=== PATIENT | male | born 1950 | race Caucasian/White ===

== ENCOUNTER → 2019-03-06 | Outpatient (CLI) | payer MEDICARE, OTHER ==
--- NOTE | 2019-03-08 13:37 | P.ARTDOP ---
Arterial Doppler LOWER EXTREMITY ARTERIAL DOPPLER: DATE OF SERVICE: 03/06/2019 Reason for study: Claudication. Doppler waveforms: Multiphasic bilaterally throughout. Pulse volume recording: []. Pressure gradients: Below the knee on the left and above the knee on the right as well as below the knee. Ankle-brachial indices: 0.54 on the right and 0.87 on the left. Toe pressures: [] on the right, [] on the left Impression: Mild left and moderate right fem-pop disease..
== END | disposition home or self-care (01) ==
LOC: RADUSWWP 11:59
PROVIDERS: ATTEND Pediatrics
DX: I73.9 Peripheral vascular disease, unspecified (principal)
CPT/HCPCS: 93923

== ENCOUNTER → 2019-05-02 | Outpatient (CLI) | payer MEDICARE, OTHER ==
[2019-05-02 16:38] LABS: Basophils % (A) 0 %; Eosinophils # (A) 0.1 k/uL (0-0.7); Eosinophils % (A) 1 %; HCT 32.1 % (39.0-53.0); Lymphocytes # (A) 1.7 k/uL (1.0-4.8); Lymphocytes % (A) 19 %; MCH 31.4 pg (25.0-35.0); MCHC 34.4 g/dL (31.0-37.0); MCV 91.4 fL (80.0-100.0); Mean Platelet Volume 6.7; Monocytes # (A) 0.7 k/uL (0-1.0); Monocytes % (A) 7 %; Neutrophils # (A) 6.5 k/uL (1.3-7.7); Neutrophils % (A) 70 %; Platelet Count 462 k/uL (150-450); RBC 3.51 m/uL (4.30-5.90); RDW 12.9 % (11.5-15.5); WBC 9.2 k/uL (3.8-10.6)
[2019-05-02 16:46] LABS: Potassium 4.9 mmol/L (3.5-5.1)
== END | disposition home or self-care (01) ==
LOC: LABWHC1 15:23
PROVIDERS: ATTEND Surgery
DX: Z01.812 Encounter for preprocedural laboratory examination (principal); I73.9 Peripheral vascular disease, unspecified
CPT/HCPCS: 36415; 80051; 82565; 84520; 85025

== ENCOUNTER 2019-05-16 06:13 | Day surgery (SDC) | payer MEDICARE, OTHER ==
[2019-05-11 10:04] VITALS: BMI 17.7
[~2019-05-16 06:13] MED LIST: ALPRAZolam 0.25 MG TAB PO PRN; ASPIRIN 325 MG TAB PO STA; SODIUM CHLORIDE 0.9% 1,000 ML in EMPTY BAG 1 BAG IV ONE
[2019-05-16] MEDS ORDERED: MIDAZOLAM PF (FBP) 2 MG/2 ML VIAL IVP ONE (07:30)
[2019-05-16] MEDS ORDERED: fentaNYL (PF) 50 MCG/ML 2 ML AMP IV ONE (07:30)
[2019-05-16] MEDS ORDERED: LIDOCAINE 1% INJ 10MG/ML (20 ML MDV) SQ ONE (07:32)
[2019-05-16] MEDS ORDERED: IOPAMIDOL-250 100ML BTL INTRAARTER ONE (07:43)
--- NOTE | 2019-05-16 08:00 | P.OP ---
Date of Procedure: 05/16/19 Indications for Procedure: 68-year-old gentleman who presents to the hospital for elective aortogram with runoff. Patient has had difficulty with ambulation and complaining of pain in his right calf with approximately half a block of walking. He also states he has to walk up stairs to get to his house which she states is extremely difficult and painful. He does admit to continued tobacco use but is down to 14 cigarettes per day. He underwent arterial Doppler which demonstrated ABIs of 0.40 on the right and 0.98 on the left. 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 Left superficial femoral artery stenosis approximately 90%. Procedure: Aortogram with bilateral lower extremity runoffs via left common femoral artery access under ultrasound guidance Surgeon: Juan Anesthesia: Moderate sedation times 14 minutes Estimated blood loss: Less than 5 mL Complications: None Condition: Stable Findings: Aorta: Patent without any significant stenosis or atherosclerotic disease. Renal arteries are patent bilaterally. Iliacs: Mild atherosclerotic disease noted within the iliac arteries bilaterally with mild approximately 10% stenosis of the left common iliac artery. Femorals: Bilateral common femoral arteries are patent. Profundus femoris arteries are patent bilaterally. Superficial femoral artery on the right is patent at the orifice but is occluded just after takeoff with reconstitution above-knee popliteal artery just after Addison's canal. The left superficial femoral artery is patent with atherosclerotic disease throughout and 90% stenosis at the midportion. Popliteal: Patent with mild atherosclerotic disease Tibials: Three-vessel runoff bilaterally with anterior tibial and posterior tibial artery to the ankle on the left posterior tibial artery to the ankle on the right with diminished contrast noted to the ankle from the anterior tibial artery. Operative narrative: After written informed consent was obtained the patient all risks benefits competitions were described the patient is brought to the Natural [employer] Shothole Driller and laid in a supine position. The area of the groin was prepped and draped in the usual sterile fashion. Local anesthesia with moderate sedation was performed with continuous pulse ox monitoring and EKG monitoring. Utilizing ultrasound the left common femoral artery was visualized and shown to be patent without any significant plaque. Utilizing a multipurpose needle under ultrasound guidance the artery was accessed. Guidewire was placed followed by 5-Danish sheath. 035 Glidewire was then placed into the aorta followed by pigtail catheter. Angiogram was then obtained of the aorta. Catheter was then placed at the bifurcation and lower extremity runoffs were obtained. Once completed all guidewires, catheters and sheaths were removed and pressure was placed for hemostasis. Patient tolerated procedure well was sent to PACU for recovery Plan - Discharge Summary Discharge Rx Participant: No New Discharge Prescriptions: No Action Fluticasone Nasal [place] [Flonase Nasal [place]] 2 spr EA NOSTRIL DAILY Lisinopril [Zestril] 5 mg PO DAILY Lansoprazole [Prevacid] 30 mg PO DAILY Aspirin 81 mg PO DAILY Discharge Medication List Fluticasone Nasal [place] [Flonase Nasal [place]] 2 spr EA NOSTRIL DAILY 07/23/16 [History] Lansoprazole [Prevacid] 30 mg PO DAILY 05/11/19 [History] Lisinopril [Zestril] 5 mg PO DAILY 05/11/19 [History] Aspirin 81 mg PO DAILY 05/16/19 [History] Follow up Appointment(s)/Referral(s): Osmani Martinez DO [STAFF PHYSICIAN] - 1 Week Discharge Disposition: HOME SELF-CARE
--- NOTE | 2019-05-16 08:50 | IR ---
EXAMINATION TYPE: IR angio abdominal w runoff DATE OF EXAM: 05/16/2019 COMPARISON: NONE HISTORY: Fluoroscopy time. Fluoroscopy was provided to the referring clinician.
[2019-05-16 10:18] VITALS: RESP 20
[2019-05-16 13:23] VITALS: BP 127/65; PULSE 70
== END 2019-05-16 13:00 | disposition home or self-care (01) ==
LOC: CATHCVL 06:13
PROVIDERS: ATTEND Surgery
DX: I70.213 Atherosclerosis of native arteries of extremities with intermittent claudication, bilateral legs (principal); I70.92 Chronic total occlusion of artery of the extremities; F17.210 Nicotine dependence, cigarettes, uncomplicated; K40.20 Bilateral inguinal hernia, without obstruction or gangrene, not specified as recurrent; K85.90 Acute pancreatitis without necrosis or infection, unspecified; Z79.82 Long term (current) use of aspirin; Z79.899 Other long term (current) drug therapy
CPT/HCPCS: 36200; 75625; 75716; 76937; C1769 ×3; C1894; J2001; J3010; Q9966; J2250

== ENCOUNTER → 2019-05-23 | Outpatient (CLI) | payer MEDICARE, OTHER ==
[2019-05-23 16:50] LABS: African American GFR (CKD) >90 (>60 ml/min/1.73 sqM); Anion Gap 9 mmol/L; Blood Urea Nitrogen 16 mg/dL (9-20); Carbon Dioxide 29 mmol/L (22-30); Chloride 96 mmol/L (98-107); Potassium 5.1 mmol/L (3.5-5.1); Sodium 134 mmol/L (137-145)
[2019-05-23 16:58] LABS: Basophils # (A) 0.1 k/uL (0-0.2); Basophils % (A) 1 %; Eosinophils # (A) 0.1 k/uL (0-0.7); Eosinophils % (A) 2 %; HCT 33.9 % (39.0-53.0); HGB 11.3 gm/dL (13.0-17.5); Lymphocytes # (A) 1.9 k/uL (1.0-4.8); Lymphocytes % (A) 21 %; MCH 31.1 pg (25.0-35.0); MCHC 33.3 g/dL (31.0-37.0); MCV 93.3 fL (80.0-100.0); Monocytes # (A) 0.7 k/uL (0-1.0); Monocytes % (A) 7 %; Neutrophils # (A) 6.1 k/uL (1.3-7.7); Neutrophils % (A) 68 %; Platelet Count 498 k/uL (150-450); RBC 3.63 m/uL (4.30-5.90); RDW 13.1 % (11.5-15.5); WBC 9.1 k/uL (3.8-10.6)
== END | disposition home or self-care (01) ==
LOC: LABPAT 15:52
PROVIDERS: ATTEND Surgery
DX: Z01.812 Encounter for preprocedural laboratory examination (principal); I70.211 Atherosclerosis of native arteries of extremities with intermittent claudication, right leg
CPT/HCPCS: 36415; 80051; 82565; 84520; 85025

== ENCOUNTER 2019-06-02 05:42 | Day surgery (SDC) | payer MEDICARE, OTHER ==
[2019-05-31 14:45] VITALS: BMI 17.7
[2019-06-02] MEDS ORDERED: ALPRAZolam 0.25 MG TAB PO PRN (05:58)
[2019-06-02] MEDS ORDERED: SODIUM CHLORIDE 0.9% 1,000 ML in EMPTY BAG 1 BAG IV ONE (05:58)
[2019-06-02] MEDS ORDERED: ASPIRIN 325 MG TAB PO STA (05:58)
[2019-06-02 06:43] VITALS: PULSE 80; RESP 20; TEMP 98
[2019-06-02] MEDS ORDERED: IV FLUID CONTINUATION 950 ML IV ONE (07:14)
[2019-06-02] MEDS: MIDAZOLAM PF (FBP) 2 MG/2 ML VIAL IV ONE ×2 (07:25→07:34)
[2019-06-02] MEDS: fentaNYL (PF) 50 MCG/ML 2 ML AMP IV ONE ×2 (07:26→08:02)
[2019-06-02] MEDS ORDERED: LIDOCAINE 1% INJ 10MG/ML (20 ML MDV) SQ ONE (07:27)
[2019-06-02] MEDS ORDERED: HEPARIN SODIUM 1,000 UN/ML (10ML VL) IV ONE (07:37)
[2019-06-02] MEDS ORDERED: CLOPIDOGREL 75 MG TAB PO ONE (08:35)
[2019-06-02] MEDS ORDERED: PROTAMINE SULFATE 10 MG/ML 5 ML VIAL IV ONE (08:36)
[2019-06-02] MEDS ORDERED: IOPAMIDOL-250 100ML BTL INTRAARTER ONE (08:43)
--- NOTE | 2019-06-02 08:57 | P.OP ---
Date of Procedure: 06/02/19 Description of Procedure: Preoperative diagnosis: Disabling claudication Lawrence classification 3 with right superficial femoral artery chronic total occlusion Postoperative diagnosis: Same Procedure: 1. Right lower extremity percutaneous directional atherectomy with Hawk One device of the superficial femoral artery. 2. Right lower extremity percutaneous balloon angioplasty with drug eluding balloon of the superficial femoral artery. 3. Right lower extremity percutaneous stent placement of the superficial femoral artery 4. Right lower extremity selective femoral, popliteal and distal tibial artery angiogram 5. Left common femoral artery ultrasound guided access. 6. Moderate sedation x 66 minutes. Surgeon: Juan Estimated blood loss: 5 mL Complications: None Condition: Stable Disposition: Palpable PT pulse at the conclusion of the procedure. Indications: 68-year-old gentleman who presented originally to the office secondary to right lower extremity disabling claudication. Patient states she can only walk approximately 50-60 feet without significant pain in his calf and thigh. He underwent ABIs which demonstrated 0.4 on the right and underwent aortogram with runoff which demonstrated right superficial femoral artery chronic total occlusion with recollateralization at the above-knee popliteal. On exam he had nonpalpable DP or PT pulses. He presents today for atherectomy and possible stenting. Operative narrative: After written informed consent was obtained the patient all risks benefits competitions were described the patient is brought to the Technical Communication Teacher and laid in a supine position. The area of the groins were prepped and draped in usual sterile fashion. Timeout was performed in normal fashion. Utilizing ultrasound the left common femoral artery was visualized and shown to be patent with no thrombus and minimal calcification area utilizing Seldinger technique a 6-Thai sheath was placed after access was obtained under ultrasound guidance. Heparin was administered and ACTs obtained. 0.35 Glid ewire followed by a RBI catheter was placed into the aortic bifurcation and the right common iliac artery was accessed in an up and over fashion. Once in the superficial femoral artery we RBI catheter was placed into the SFA and the wire was exchanged with a 035 Glidewire advantage. A 7-Thai Raabe sheath was then placed after removal of the 6-Thai short sheath. Selective angiogram was then obtained of the right lower extremity demonstrating chronic total occlusion of the SFA with reconstitution of the above-knee popliteal artery. Utilizing a 035 Glidewire advantage and a quick cross catheter the lesion was crossed. Once across the lesion selective angiogram distal to the blockage was obtained demonstrating good intraluminal access. A 5-Thai spider wire and filter was placed and atherectomy was performed across the lesion with a Hawk one LX device for 3 passes. Angiogram was then obtained demonstrating intraluminal gain but there was an area of dissection flap that was noted. A balloon angioplasty was then performed with 6 x 200 mm impact Admiral drug-eluting balloon 4 minutes. Repeat angiogram was obtained demonstrating still an area of dissection with flow limitation therefore a 6 x 120 mm ever Flex stent was placed across the lesion. This was followed by a 6 x 100 mm balloon angioplasty within the stent and final angiogram was obtained demonstrating brisk flow through the stent. No evidence of turbulence was noted with flow down to the ankle. All guidewires and catheters were then removed ACTs were obtained and sheath was removed and pressure was held for hemostasis. Patient tolerated the procedure well and was sent to PACU for recovery. Plan - Discharge Summary Discharge Rx Participant: No New Discharge Prescriptions: No Action Fluticasone Nasal [place] [Flonase Nasal [place]] 2 spr EA NOSTRIL DAILY Lisinopril [Zestril] 5 mg PO DAILY Aspirin 81 mg PO DAILY Discharge Medication List Fluticasone Nasal [place] [Flonase Nasal [place]] 2 spr EA NOSTRIL DAILY 07/23/16 [History] Lisinopril [Zestril] 5 mg PO DAILY 05/11/19 [History] Aspirin 81 mg PO DAILY 05/16/19 [History] Clopidogrel [Plavix] 75 mg PO DAILY 06/02/19 [History] Follow up Appointment(s)/Referral(s): Osmani Martinez DO [STAFF PHYSICIAN] - 2 Weeks Activity/Diet/Wound Care/Special Instructions: no lifting greater than 15 lbs x 1 week. ok to shower over incision in 24 hours. remove dressing in 24 hours. no driving x 24 hours. Discharge Disposition: HOME SELF-CARE
--- NOTE | 2019-06-02 10:46 | IR ---
Fluoroscopy HISTORY: Pain 14.3 minutes fluoroscopy time supplied to the referring clinician. 619 intraoperative C-arm images d ocument the procedure. See dictated report from vascular surgery.
[2019-06-02 17:58] VITALS: BP 129/72
== END 2019-06-02 17:00 | disposition home or self-care (01) ==
LOC: CATHCVL 05:42
PROVIDERS: ATTEND Surgery
DX: I70.213 Atherosclerosis of native arteries of extremities with intermittent claudication, bilateral legs (principal); I70.92 Chronic total occlusion of artery of the extremities; F17.200 Nicotine dependence, unspecified, uncomplicated; Z79.899 Other long term (current) drug therapy; Z98.890 Other specified postprocedural states; Z82.49 Family history of ischemic heart disease and other diseases of the circulatory system
CPT/HCPCS: 37227; 85347; C1894 ×2; C1769 ×4; C1887; C1725; C1714; C1884; C1876; C2623; J2720; J2001; J3010; J1644; Q9966; J2250

== ENCOUNTER 2019-07-19 15:28 | Inpatient (IN) | payer MEDICARE, OTHER ==
[2019-07-19] MEDS ORDERED: HEPARIN SODIUM,PORCINE 5,000 UNIT/ML 1 ML VIAL IV ONE (15:50)
[2019-07-19] MEDS ORDERED: HEPARIN SODIUM,PORCINE 5,000 UNIT/ML 1 ML VIAL IV PRN (15:50)
[2019-07-19 15:57] LABS: Basophils % (A) 0 %; Eosinophils # (A) 0.1 k/uL (0-0.7); Eosinophils % (A) 1 %; Hypochromasia Marked; Lymphocytes # (A) 1.3 k/uL (1.0-4.8); Lymphocytes % (A) 18 %; MCH 27.2 pg (25.0-35.0); MCHC 31.1 g/dL (31.0-37.0); Mean Platelet Volume 6.6; Monocytes # (A) 0.4 k/uL (0-1.0); Monocytes % (A) 6 %; Neutrophils # (A) 5.4 k/uL (1.3-7.7); Neutrophils % (A) 73 %; Platelet Count 503 k/uL (150-450); Poikilocytosis Slight; RBC 2.27 m/uL (4.30-5.90); RDW 15.3 % (11.5-15.5); WBC 7.4 k/uL (3.8-10.6)
[2019-07-19] MEDS ORDERED: NITROGLYCERIN 0.1MG/HR PATCH TRANSDERM ONE (15:57)
--- NOTE | 2019-07-19 15:59 | ED ---
General Adult HPI - General Chief complaint: Recheck/Abnormal Lab/Rx Stated complaint: CHEST PAIN Time Seen by Provider: 07/19/19 15:41 Source: EMS Mode of arrival: EMS Limitations: no limitations - History of Present Illness Initial comments: Dictation was produced using [employer] dictation software. please excuse any grammatical, word or spelling errors. Chief Complaint: 69-year-old male brought in by EMS for anemia and chest pain. History of Present Illness: 69-year-old male he has been having waxing and waning chest pain symptoms for the last year. Patient was seen his primary care physician's office and sent home. PCP allegedly called EMS and transfer patient to the emergency department. Patient was told that he had a critical low hemoglobin of 6.6. According to EMS EMS was concerned about his chest pain. States she's been having chest pain that started since 2 PM today. He was given nitroglycerin and aspirin by EMS. Patient states the pain is dull radiates to the right jaw. Complains of some mild nausea and no diaphoresis. She does complain of some mild exertional shortness of breath. Patient denies any worsening of symptoms with deep inspiration. Said he had GI bleed approximately 2 months ago. The ROS documented in this emergency department record has been reviewed and confirmed by me. Those systems with pertinent positive or negative responses have been documented in the HPI. All other systems are other negative and/or noncontributory. PHYSICAL EXAM: General Impression: Alert and oriented x3, not in acute distress HEENT: Normocephalic atraumatic, extra-ocular movements intact, pupils equal and reactive to light bilaterally, mucous membranes moist. Cardiovascular: Heart regular rate and rhythm, S1&S2 audible, no murmurs, rubs or gallops Chest: Lungs clear to auscultation bilaterally, no rhonchi, no wheeze, no rales Abdomen: Bowel sounds present, abdomen soft, non-tender, non-distended, no organomegaly Musculoskeletal: Pulses present and equal in all extremities, no peripheral edema Motor: no focal deficits noted Neurological: CN II-XII grossly intact, no focal motor or sensory deficits noted Skin: Intact with no visualized rashes Psych: Normal affect and mood ED course: 69-year-old male presents to the emergency department for anemia and chest pain. Vital signs pending. He was obtained showing diffuse ST depressions without any clear ST elevation. This is compared to EKG from 07/23/2016. There is significant concern for ischemia. Discussed patient case immediately with Dr. Shahid of cardiology who requested that code STEMI not be paged and that he will come and see the patient in approximately 10 minutes. All signs upon arrival shows heart rate of 124. She did report improvement of symptoms with nitroglycerin. Discussed patient case with Naty from Dr. Bass's office. She allegedly saw the patient earlier today [facility] labs for his annual visit. She reports that EMS was called for hemoglobin of 6.6. Patient has hemoglobin stable in the [address] does not show any discernible ST elevations to suggest ST segment elevation [place]. There is concern that patient's clinical presentation is concerning with cardiac ischemia from low hemoglobin.Dr. Shahid from cardiology evaluated patient at bedside and reviewed EKGs. Given patient's anemia no indication for seed analysis laboratory assistant at this time. He recommends transfusing patient. He requests order for iron studies and echocardiogram. Labs evaluation obtained. Hemoglobin 6.2. Metabolic panel is unremarkable. Point elevated at 0.036. D-dimer slightly elevated at 7.55. Bony care bedside ultrasound was performed to free fluid in the abdomen no pericardial effusion. Patient ordered for blood transfusion. Patient be admitted. Discussed Case with Dr. Hoyt will be willing to accept patients care. He requests that hematology consult it. EKG interpretation: Ventricular rate 120, sinus tachycardia, ME interval 150, QS 92, QTc 457. Concern for cardiac ischemia given diffuse ST depressions in the precordial leads. Repeat EKG was obtained showing no dynamic changes however shows persistent ST depression. - Related Data Home Medications Medication Instructions Recorded Confirmed Fluticasone Nasal [place] [Flonase 1 spr EA NOSTRIL DAILY 07/23/16 07/19/19 Nasal [place]] Lisinopril [Zestril] 5 mg PO DAILY 05/11/19 07/19/19 Aspirin 81 mg PO DAILY 05/16/19 07/19/19 Clopidogrel [Plavix] 75 mg PO DAILY 06/02/19 07/19/19 Atorvastatin Calcium [Lipitor] 40 mg PO DAILY 07/19/19 07/19/19 Allergies Allergy/AdvReac Type Severity Reaction Status Date / Time No Known Allergies Allergy Verified 07/19/19 16:45 Review of Systems ROS Statement: Those systems with pertinent positive or pertinent negative responses have been documented in the HPI. ROS Other: All systems not noted in ROS Statement are negative. Past Medical History Past Medical History: COPD, Hypertension Additional Past Medical History / Comment(s): extreme rufus leg pain with walking and resting,Hx sinus problems, Headaches, 2008 fell down 25 steps- broke nose and had a concussion, rt lazy eye,pancreatitis, History of Any Multi-Drug Resistant Organisms: None Reported Past Surgical History: Hernia Repair Additional Past Surgical History / Comment(s): Bilateral inguinal hernias, tooth extractions, stent in right leg Past Anesthesia/Blood Transfusion Reactions: Motion Sickness Additional Past Anesthesia/Blood Transfusion Reaction / Comment(s): no hx blood transfusion Past Psychological History: No Psychological Hx Reported Smoking Status: Current every day smoker Past Alcohol Use History: None Reported Past Drug Use History: None Reported - Past Family History Mother Family Medical History: Dementia Father Family Medical History: Congestive Heart Failure (CHF) General Exam Limitations: no limitations Course Vital Signs 07/19/19 07/19/19 07/19/19 15:35 15:43 15:50 Temperature 98.5 F Pulse Rate 124 H Pulse Rate [ 124 H Apical] Respiratory 16 Rate Blood Pressure 115/63 O2 Sat by Pulse 100 100 Oximetry 07/19/19 16:00 Temperature Pulse Rate 114 H Pulse Rate [ Apical] Respiratory 20 Rate Blood Pressure 115/63 O2 Sat by Pulse 100 Oximetry Medical Decision Making - Lab Data Result diagrams: 07/19/19 15:41 07/19/19 15:41 Lab Results 07/19/19 07/19/19 07/19/19 Range/Units 15:41 15:41 15:41 WBC 7.4 (3.8-10.6) k/uL RBC 2.27 L (4.30-5.90) m/uL Hgb 6.2 L* D (13.0-17.5) gm/dL Hct 19.8 L* (39.0-53.0) % MCV 87.3 D (80.0-100.0) fL MCH 27.2 (25.0-35.0) pg MCHC 31.1 (31.0-37.0) g/dL RDW 15.3 (11.5-15.5) % Plt Count 503 H (150-450) k/uL Neutrophils % 73 % Lymphocytes % 18 % Monocytes % 6 % Eosinophils % 1 % Basophils % 0 % Neutrophils # 5.4 (1.3-7.7) k/uL Lymphocytes # 1.3 (1.0-4.8) k/uL Monocytes # 0.4 (0-1.0) k/uL Eosinophils # 0.1 (0-0.7) k/uL Basophils # 0.0 (0-0.2) k/uL Hypochromasia Marked Poikilocytosis Slight PT 10.4 (9.0-12.0) sec INR 1.0 (<1.2) APTT 20.9 L (22.0-30.0) sec D-Dimer 0.55 (<0.60) mg/L FEU Sodium 138 (137-145) mmol/L Potassium 4.1 (3.5-5.1) mmol/L Chloride 102 (98-107) mmol/L Carbon Dioxide 26 (22-30) mmol/L Anion Gap 10 mmol/L BUN 22 H (9-20) mg/dL Creatinine 1.10 (0.66-1.25) mg/dL Est GFR (CKD-EPI)AfAm 80 (>60 ml/min/1.73 sqM) Est GFR (CKD-EPI)NonAf 69 (>60 ml/min/1.73 sqM) Glucose 91 (74-99) mg/dL Calcium 9.4 (8.4-10.2) mg/dL Magnesium 2.0 (1.6-2.3) mg/dL Total Bilirubin 0.1 L (0.2-1.3) mg/dL AST 21 (17-59) U/L ALT 14 L (21-72) U/L Alkaline Phosphatase 52 (38-126) U/L Troponin I (0.000-0.034) ng/mL Total Protein 7.0 (6.3-8.2) g/dL Albumin 4.1 (3.5-5.0) g/dL 07/19/19 Range/Units 15:41 WBC (3.8-10.6) k/uL RBC (4.30-5.90) m/uL Hgb (13.0-17.5) gm/dL Hct (39.0-53.0) % MCV (80.0-100.0) fL MCH (25.0-35.0) pg MCHC (31.0-37.0) g/dL RDW (11.5-15.5) % Plt Count (150-450) k/uL Neutrophils % % Lymphocytes % % Monocytes % % Eosinophils % % Basophils % % Neutrophils # (1.3-7.7) k/uL Lymphocytes # (1.0-4.8) k/uL Monocytes # (0-1.0) k/uL Eosinophils # (0-0.7) k/uL Basophils # (0-0.2) k/uL Hypochromasia Poikilocytosis PT (9.0-12.0) sec INR (<1.2) APTT (22.0-30.0) sec D-Dimer (<0.60) mg/L FEU Sodium (137-145) mmol/L Potassium (3.5-5.1) mmol/L Chloride (98-107) mmol/L Carbon Dioxide (22-30) mmol/L Anion Gap mmol/L BUN (9-20) mg/dL Creatinine (0.66-1.25) mg/dL Est GFR (CKD-EPI)AfAm (>60 ml/min/1.73 sqM) Est GFR (CKD-EPI)NonAf (>60 ml/min/1.73 sqM) Glucose (74-99) mg/dL Calcium (8.4-10.2) mg/dL Magnesium (1.6-2.3) mg/dL Total Bilirubin (0.2-1.3) mg/dL AST (17-59) U/L ALT (21-72) U/L Alkaline Phosphatase (38-126) U/L Troponin I 0.036 H* (0.000-0.034) ng/mL Total Protein (6.3-8.2) g/dL Albumin (3.5-5.0) g/dL Disposition Clinical Impression: Anemia, Elevated troponin Disposition: ADMITTED IP TO THIS HOSP Condition: Fair Referrals: Seth Bass MD [Primary Care Provider] - 1-2 days Decision Time: 16:53
[2019-07-19] MEDS ORDERED: HEPARIN SOD,PORK IN 0.45% NACL 25,000 UNIT in 0.45% NACL 1 250ML.BAG IV SCH (16:00)
[2019-07-19 16:11] LABS: Albumin 4.1 g/dL (3.5-5.0); Calcium 9.4 mg/dL (8.4-10.2); Potassium 4.1 mmol/L (3.5-5.1); Total Bilirubin 0.1 mg/dL (0.2-1.3)
[2019-07-19] MEDS ORDERED: NITROGLYCERIN OINT 1 INCH/GM PACKET TOPICAL STA (16:11)
[2019-07-19] MEDS ORDERED: SODIUM CHLORIDE 0.9% 1,000 ML IV STA (16:11)
[2019-07-19 16:12] LABS: HCT 19.8 % (39.0-53.0)
[2019-07-19 16:13] LABS: MCV 87.3 fL (80.0-100.0)
[2019-07-19 16:14] LABS: HGB 6.2 gm/dL (13.0-17.5)
--- NOTE | 2019-07-19 16:20 | XR ---
EXAMINATION TYPE: XR chest 1V portable DATE OF EXAM: 07/19/2019 COMPARISON: Chest x-ray July 23, 2016. HISTORY: Chest pain and pressure. TECHNIQUE: Single frontal view of the chest is obtained. FINDINGS: Right greater than left biapical pleural/parenchymal scarring redemonstrated. There is no s uspicious new focal air space opacity, pleural effusion, or pneumothorax seen. The cardiac silhouett e size is upper limits of normal. The osseous structures are intact. IMPRESSION: No acute process.
[2019-07-19 16:30] LABS: D-Dimer 0.55 mg/L FEU (<0.60); Prothrombin Time 10.4 sec (9.0-12.0)
[2019-07-19 16:40] LABS: Partial Thromboplastin Time 20.9 sec (22.0-30.0)
[2019-07-19] MEDS ORDERED: PANTOPRAZOLE 40 MG/10 ML VIAL IVP ONE (16:52)
[2019-07-19] MEDS ORDERED: ONDANSETRON 4 MG/2 ML VIAL IVP PRN (16:53)
[2019-07-19] MEDS ORDERED: NALOXONE 0.4 MG/ML 1 ML VIAL IV PRN (16:53)
[2019-07-19] MEDS ORDERED: NITROGLYCERIN SL TABS 0.4 MG TAB SUBLINGUAL PRN (21:48)
[2019-07-19 23:11] LABS: Basophils % (A) 0 %; Eosinophils % (A) 1 %; HCT 22.8 % (39.0-53.0); HGB 7.3 gm/dL (13.0-17.5); Hypochromasia Marked; Lymphocytes # (A) 1.2 k/uL (1.0-4.8); Lymphocytes % (A) 15 %; MCH 27.9 pg (25.0-35.0); MCV 87.2 fL (80.0-100.0); Mean Platelet Volume 6.1; Monocytes # (A) 0.5 k/uL (0-1.0); Monocytes % (A) 7 %; Neutrophils # (A) 6.1 k/uL (1.3-7.7); Neutrophils % (A) 76 %; Platelet Count 437 k/uL (150-450); Poikilocytosis Moderate; RBC 2.62 m/uL (4.30-5.90); RDW 14.6 % (11.5-15.5)
[2019-07-20] MEDS: ACETAMINOPHEN TAB 325 MG TAB PO PRN ×2 (00:40→12:57)
[2019-07-20] MEDS: SODIUM CHLORIDE 0.9% 1,000 ML IV SCH ×3 (02:02→16:31)
[2019-07-20] MEDS: NITROGLYCERIN OINT 1 INCH/GM PACKET TOPICAL SCH ×2 (02:02→06:13)
[2019-07-20 07:20] LABS: Basophils % (A) 1 %; Eosinophils # (A) 0.1 k/uL (0-0.7); Eosinophils % (A) 1 %; HCT 29.1 % (39.0-53.0); Hypochromasia Marked; Lymphocytes # (A) 1.5 k/uL (1.0-4.8); Lymphocytes % (A) 19 %; MCH 28.4 pg (25.0-35.0); MCHC 32.9 g/dL (31.0-37.0); MCV 86.4 fL (80.0-100.0); Mean Platelet Volume 5.8; Monocytes # (A) 0.5 k/uL (0-1.0); Monocytes % (A) 6 %; Neutrophils # (A) 5.6 k/uL (1.3-7.7); Neutrophils % (A) 72 %; Platelet Count 436 k/uL (150-450); Poikilocytosis Moderate; RBC 3.37 m/uL (4.30-5.90); RDW 14.5 % (11.5-15.5); WBC 7.8 k/uL (3.8-10.6)
[2019-07-20 07:21] LABS: HGB 9.6 gm/dL (13.0-17.5)
[2019-07-20] MEDS: ATORVASTATIN 40 MG TAB PO SCH (08:14)
[2019-07-20] MEDS: LISINOPRIL 5 MG TAB PO SCH (08:14)
[2019-07-20] MEDS: METOPROLOL TARTRATE 50 MG TAB PO SCH ×2 (08:55→20:59)
[2019-07-20] MEDS ORDERED: METOPROLOL TARTRATE 50 MG TAB PO SCH (09:00)
[2019-07-20] MEDS: NITROGLYCERIN-D5W PMX 50 MG in DEXTROSE/WATER 1 250ML.BAG IV SCH (09:11)
[2019-07-20] MEDS ORDERED: IOPAMIDOL CONTRAST (ORAL USE) VIAL PO PRN (09:17)
[2019-07-20 10:03] LABS: Reticulocyte % 1.7 % (0.5-2.0)
--- NOTE | 2019-07-20 12:53 | ECHOF ---
Referral Reason:ekg changes MEASUREMENTS -------- HEIGHT: 167.6 cm WEIGHT: 46.7 kg BP: 115/63 RVIDd: 3.1 cm (< 3.3) IVSd: 1.3 cm (0.6 - 1.1) LVIDd: 4.5 cm (3.9 - 5.3) LVPWd: 1.2 cm (0.6 - 1.1) IVSs: 1.2 cm LVIDs: 3.9 cm LVPWs: 1.3 cm LAESV Index (A-L): 40.28 ml/m Ao Diam: 3.3 cm (2.0 - 3.7) AV Cusp: 2.0 cm (1.5 - 2.6) LA Diam: 3.8 cm (2.7 - 3.8) MV EXCURSION: 18.894 mm (> 18.000) MV EF SLOPE: 134 mm/s (70 - 150) EPSS: 1.2 cm AR PHT: 358 ms RAP: 5.00 mmHg RVSP: 54.94 mmHg FINDINGS -------- Resting tachycardia (HR>100bpm). This was a technically adequate study. The left ventricular size is normal. There is mild concentric left ventricular hypertrophy. There is severe global hypokinesis of LV . Overall left ventricular systolic function is severely impair ed with, an EF between 25 - 30 %. Left ventricular fillimg pressure cannot be estimated due to abimael re mitral regurgitation. The right ventricle is normal in size. LA is severely dilated >40 ml/m2 The right atrial size is normal. 5.0mg of Lumason was utilized for enhancement of images Interatrial and interventricular septum intact. The aortic valve is trileaflet and appears structurally normal. Trace amount of aortic regurgitatio n. There is no evidence of aortic stenosis. Mild mitral annular calcification present. Severe mitral regurgitation is present. Moderate tricuspid regurgitation present. There is moderate pulmonary hypertension. The right tito tricular systolic pressure, as measured by Doppler, is 54.94mmHg. There is no pulmonic regurgitation present. The aortic root is mildy dilated. IVC Not well visulized. There is no pericardial effusion. CONCLUSIONS -------- 1. Resting tachycardia (HR>100bpm). 2. This was a technically adequate study. 3. The left ventricular size is normal. 4. There is mild concentric left ventricular hypertrophy. 5. There is severe global hypokinesis of LV . 6. Left ventricular fillimg pressure cannot be estimated due to severe mitral regurgitation. 7. The right ventricle is normal in size. 8. LA is severely dilated >40 ml/m2 9. The right atrial size is normal. 10. 5.0mg of Lumason was utilized for enhancement of images 11. Interatrial and interventricular septum intact. 12. The aortic valve is trileaflet and appears structurally normal. 13. Trace amount of aortic regurgitation. 14. There is no evidence of aortic stenosis. 15. Mild mitral annular calcification present. 16. Severe mitral regurgitation is present. 17. Moderate tricuspid regurgitation present. 18. There is moderate pulmonary hypertension. 19. The right ventricular systolic pressure, as measured by Doppler, is 54.94mmHg. 20. There is no pulmonic regurgitation present. 21. The aortic root is mildy dilated. 22. IVC Not well visulized. 23. There is no pericardial effusion. SHARE DAIRY FARMER: Lotus Brewer RDCS
[2019-07-20 13:04] LABS: Glucose,Whole Blood 74 mg/dL (75-99)
--- NOTE | 2019-07-20 14:03 | P.CNPUL ---
History of Present Illness Consult date: 07/20/19 Requesting physician: Angel Hoyt Reason for consult: chest pain, other (Critical care management) Chief complaint: Chest pain History of present illness: This is a very pleasant 69-year-old gentleman who follows with Dr. Bass as his primary care physician. He has a history of hypertension, hyperlipidemia, chronic and ongoing tobacco dependence of greater than 50 years, peripheral vascular disease and is status post stent placement to the right leg in May 2019. He's been on Plavix, aspirin, Lipitor. Denies any home oxygen, no inhalers, no nebulized treatments, not been seen by a transfer coordinator in the past. He had recently been having episodes of chest pain and shortness of breath. He was seen by his PCP yesterday and found to have a hemoglobin of 6.2. He is transported here via EMS. He was having significant chest pain and had acute ST abnormalities in the inferior and anterolateral leon. He was seen and evaluated by cardiology yesterday and admitted to the selective care unit. He has received 2 units of packed red blood cells. Current hemoglobin 9.6. Troponins are 0.036, 5.560 and now 20.5. He was transferred here to the intensive care unit for the same. He is having ongoing chest discomfort. Nitroglycerin drip at 5 g per minute, Nitropaste in place. No heparin due to anemia. Denies any worsening shortness of breath, cough or congestion. Blood pressure 104/65 with a mean arterial pressure of 78. Currently afebrile. Heart rate in the 80s sinus rhythm. Continue with ST depression. O2 saturations in the upper 90s on 2 L/m per nasal cannula. Echocardiogram reveals mobile hypokinesia with ejection fraction of 25-30%. There is severe mitral regurgitation, moderate pulmonary hypertension. He is nothing by mouth for possible cardiac catheterization today. Review of Systems REVIEW OF SYSTEMS: CONSTITUTIONAL: Denies any recent significant weight loss or weight gain. EYES: Denies change in vision. EARS, NOSE, MOUTH, THROAT: Denies headaches, denies sore throat. CARDIOVASCULAR: Positive for chest pain, no palpitations or syncopal episodes. RESPIRATORY: Positive for shortness of breath, cough, congestion no hemoptysis. GASTROINTESTINAL: Denies change in appetite, denies abdominal pain GENITOURINARY: Denies hematuria, denies infections. MUSKULOSKELETAL: Denies pain, denies swelling. INTEGUMENTARY: Denies rash, denies eczema. NEUROLOGICAL: Denies recent memory loss, no recent seizure activity. PSYCHIATRIC: Denies anxiety, denies depression. HEMATOLOGIC/LYMPHATIC: Positive anemia, denies enlarged lymph nodes. Past Medical History Past Medical History: COPD, Hypertension Additional Past Medical History / Comment(s): extreme rufus leg pain with walking and resting,Hx sinus problems, Headaches, 2007 fell down 25 steps- broke nose and had a concussion, rt lazy eye,pancreatitis, History of Any Multi-Drug Resistant Organisms: None Reported Past Surgical History: Hernia Repair Additional Past Surgical History / Comment(s): Bilateral inguinal hernias, tooth extractions, stent in right leg Past Anesthesia/Blood Transfusion Reactions: Motion Sickness Additional Past Anesthesia/Blood Transfusion Reaction / Comment(s): no hx blood transfusion Past Psychological History: No Psychological Hx Reported Smoking Status: Current every day smoker Past Alcohol Use History: None Reported Additional Past Alcohol Use History / Comment(s): started smoking age 18, <1ppd. used to be heavy beer drinker till age 32 then a moderate wine drinker until her quit 2012 Past Drug Use History: None Reported - Past Family History Mother Family Medical History: Dementia Father Family Medical History: Congestive Heart Failure (CHF) Medications and Allergies Home Medications Medication Instructions Recorded Confirmed Type Fluticasone Nasal [place] [Flonase 1 spr EA NOSTRIL DAILY 07/23/16 07/19/19 History Nasal [place]] Lisinopril [Zestril] 5 mg PO DAILY 05/11/19 07/19/19 History Aspirin 81 mg PO DAILY 05/16/19 07/19/19 History Clopidogrel [Plavix] 75 mg PO DAILY 06/02/19 07/19/19 History Atorvastatin Calcium [Lipitor] 40 mg PO DAILY 07/19/19 07/19/19 History Allergies Allergy/AdvReac Type Severity Reaction Status Date / Time No Known Allergies Allergy Verified 07/19/19 16:45 Physical Exam Vitals: Vital Signs Temp Pulse Pulse Pulse Resp BP BP 07/20/19 13:00 78 34 H 104/65 07/20/19 12:50 98.9 F 86 10 L 104/65 07/20/19 12:00 99.2 F 79 18 106/58 07/20/19 08:17 99.4 F 87 18 108/59 07/20/19 08:00 87 18 07/20/19 04:00 98.7 F 85 18 106/62 07/20/19 02:07 98.4 F 88 110/65 07/20/19 02:05 98.4 F 88 16 110/65 07/20/19 00:00 98.2 F 96 16 105/63 07/19/19 23:53 88 106/64 07/19/19 23:52 88 16 108/64 07/19/19 23:23 87 16 102/61 07/19/19 23:13 87 16 104/61 07/19/19 23:06 98.4 F 91 18 100/59 07/19/19 21:00 93 20 93/60 07/19/19 20:34 98 F 95 18 110/61 07/19/19 20:30 92 24 92/57 07/19/19 20:18 98.4 F 78 18 91/56 07/19/19 20:00 92 24 84/55 07/19/19 19:30 93 23 96/61 07/19/19 19:00 98 24 100/61 07/19/19 18:59 98.9 F 98 16 90/58 07/19/19 18:30 98 19 101/61 07/19/19 18:29 98.4 F 101 H 16 104/64 07/19/19 18:19 98.5 F 112 H 16 101/61 07/19/19 18:00 107 H 23 101/66 07/19/19 17:30 106 H 19 108/62 07/19/19 17:00 113 H 18 114/66 07/19/19 16:30 105 H 15 118/69 07/19/19 16:00 114 H 20 115/63 07/19/19 15:50 124 H 07/19/19 15:43 98.5 F 124 H 16 115/63 07/19/19 15:35 Pulse Ox 07/20/19 13:00 97 07/20/19 12:50 07/20/19 12:00 98 07/20/19 08:17 98 07/20/19 08:00 07/20/19 04:00 95 07/20/19 02:07 07/20/19 02:05 07/20/19 00:00 97 07/19/19 23:53 07/19/19 23:52 07/19/19 23:23 07/19/19 23:13 07/19/19 23:06 07/19/19 21:00 96 07/19/19 20:34 98 07/19/19 20:30 96 07/19/19 20:18 07/19/19 20:00 95 07/19/19 19:30 97 07/19/19 19:00 98 07/19/19 18:59 97 07/19/19 18:30 96 07/19/19 18:29 98 07/19/19 18:19 96 07/19/19 18:00 99 07/19/19 17:30 100 07/19/19 17:00 100 07/19/19 16:30 100 07/19/19 16:00 100 07/19/19 15:50 07/19/19 15:43 100 07/19/19 15:35 100 Intake and Output 07/19/19 07/20/19 07/20/19 22:59 06:59 14:59 Intake Total 310 310 91.5 Output Total 200 Balance 310 310 -108.5 Intake: IV 91.5 Nitroglycerin-D5w Pmx 50 1.5 mg In Dextrose/Water 1 250ml.bag @ 5 MCG/MIN 1.5 mls/hr IV .Q24H LINDA Rx#: [id number] Sodium Chloride 0.9% 1, 90 000 ml @ 90 mls/hr IV . Q11H7M LINDA Rx#:[id number] Blood Product 310 310 As-1 Unit 310 [id number] As-1 Unit 310 [id number] Output: Urine 200 Other: Voiding Method Toilet Toilet # Voids 1 Weight 46.72 kg 46.9 kg GENERAL EXAM: Alert, in mild distress with chest discomfort. On 2 L nasal cannula. HEAD: Normocephalic. EYES: Normal reaction of pupils, equal size. NOSE: Clear with pink turbinates. THROAT: No erythema or exudates. NECK: No masses, no JVD. CHEST: No chest wall deformity. LUNGS: Equal air entry with no crackles, wheeze, rhonchi or dullness. CVS: S1 and S2 normal with no audible murmur, regular rhythm. ABDOMEN: No hepatosplenomegaly, normal bowel sounds, no guarding or rigidity. SPINE: No scoliosis or deformity SKIN: No rashes CENTRAL NERVOUS SYSTEM: No focal deficits, tone is normal in all 4 extremities. EXTREMITIES: There is no peripheral edema. No clubbing, no cyanosis. Peripheral pulses are intact. Results - Laboratory Findings CBC and BMP: 07/20/19 06:59 07/19/19 15:41 PT/INR, D-dimer PT 10.4 sec (9.0-12.0) 07/19/19 15:41 INR 1.0 (<1.2) 07/19/19 15:41 D-Dimer 0.55 mg/L FEU (<0.60) 07/19/19 15:41 Abnormal lab findings: Abnormal Labs 07/19/19 07/19/19 07/19/19 15:40 15:41 15:41 RBC 2.27 L Hgb 6.2 L* D Hct 19.8 L* Plt Count 503 H APTT BUN 22 H POC Glucose (mg/dL) Total Bilirubin 0.1 L ALT 14 L Troponin I Crossmatch See Detail 07/19/19 07/19/19 07/19/19 15:41 15:41 22:40 RBC Hgb Hct Plt Count APTT 20.9 L BUN POC Glucose (mg/dL) Total Bilirubin ALT Troponin I 0.036 H* 5.560 H* Crossmatch 07/19/19 07/20/19 07/20/19 22:40 06:59 06:59 RBC 2.62 L 3.37 L Hgb 7.3 L 9.6 L D Hct 22.8 L 29.1 L Plt Count APTT BUN POC Glucose (mg/dL) Total Bilirubin ALT Troponin I 20.500 H* Crossmatch 07/20/19 12:52 RBC Hgb Hct Plt Count APTT BUN POC Glucose (mg/dL) 74 L Total Bilirubin ALT Troponin I Crossmatch - Diagnostic Findings Chest x-ray: image reviewed (No acute pulmonary process) Assessment and Plan Assessment: Impression: #1 Chest pain in a patient with a non-ST segment elevation myocardial infarction with peak troponin of 20. #2 Ischemic cardiomyopathy with severe global hypokinesia and ejection fraction 25-30%. #3 Acute anemia of unclear etiology. Presenting hemoglobin 6.2. Status post 2 units of packed red blood cells. Current hemoglobin 9.6. #4 Peripheral vascular disease with disabling claudication recent placement to the right lower extremity on 06/02/2019. Maintained on Lipitor, Plavix and aspirin. #5 Chronic and ongoing tobacco dependence of greater than 50 years. #6 Hyperlipidemia. #7 COPD, currently inactive and stable. #8 History of pancreatitis. #9 History of alcoholism. Plan: The patient was seen and evaluated by Dr. Peres. Chest x-ray and labs reviewed. Awaiting cardiac catheterization and probable intervention per cardiology. Concerns regarding the anemia. Continue nitroglycerin drip for now. We'll monitor him closely here in the intensive care unit. We'll continue to follow and make further recommendations based on his clinical status. I, the cosigning physician, performed a history & physical examination of the patient. Lungs sounds are clear. Maintaining good O2 saturations in the 90s on room air. I discussed the assessment and plan of care with my nurse practitioner, Swathi Keller. I attest to the above consultation as dictated by her. Time with Patient: Greater than 30
--- NOTE | 2019-07-20 14:30 | P.CONS ---
History of Present Illness - Reason for Consult Consult date: 07/20/19 Anemia - History of Present Illness The patient is a 69-year-old white male with multiple medical issues. The patient states that he has had a long-standing history of chest pain off and on with exertion. He was diagnosed with peripheral vascular occlusive disease in the lower extremities and underwent stent placement in 06/05. He was placed on aspirin and Plavix at that time. He states that since then he has lost about 5- 6 pounds and has noted decreased appetite, as well as decreased endurance. He feels that his symptoms of chest pain and shortness of breath on exertion were becoming worse since that time. He was seen by his PCP, and then called back and asked to come into the hospital. Hemoglobin was 6.2 on admission. The patient's troponin were also elevated. He received 2 units of PRBC with increa se in hemoglobin to 9.8. Troponin actually increased to 22+. However after blood transfusion the patient feels better. Consult was placed for further evaluation and recommendations. He denied any prior history of blood related problems. He states that his last hemoglobin was 12 which was about a year ago. Labs in the EMR actually show hemoglobin of 11.3 in 06/05. He has never had a colonoscopy or upper endoscopy. He has not noted any obvious bleeding. Review of Systems Constitutional: Reports fatigue, Reports poor appetite, Reports weight loss Eyes: denies blurred vision, denies pain Ears: deny: decreased hearing, ear discharge, earache, tinnitus Ears, nose, mouth and throat: Denies headache, Denies sore throat Cardiovascular: Reports chest pain, Reports dyspnea on exertion, Reports shortness of breath Respiratory: Reports dyspnea Gastrointestinal: Reports abdominal pain (Right lower quadrant) Genitourinary: Reports as per HPI Musculoskeletal: Denies myalgias Integumentary: Denies pruritus, Denies rash Neurological: Reports weakness, Denies numbness Psychiatric: Denies anxiety, Denies depression Endocrine: Reports fatigue, Reports weight change Hematologic/Lymphatic: Reports as per HPI Past Medical History Past Medical History: COPD, Hypertension Additional Past Medical History / Comment(s): extreme rufus leg pain with walking and resting,Hx sinus problems, Headaches, 2007 fell down 25 steps- broke nose and had a concussion, rt lazy eye,pancreatitis, History of Any Multi-Drug Resistant Organisms: None Reported Past Surgical History: Hernia Repair Additional Past Surgical History / Comment(s): Bilateral inguinal hernias, tooth extractions, stent in right leg Past Anesthesia/Blood Transfusion Reactions: Motion Sickness Additional Past Anesthesia/Blood Transfusion Reaction / Comm: no hx blood transfusion Past Psychological History: No Psychological Hx Reported Smoking Status: Current every day smoker Past Alcohol Use History: None Reported Additional Past Alcohol Use History / Comment(s): started smoking age 18, <1ppd. used to be heavy beer drinker till age 32 then a moderate wine drinker until her quit 2012 Past Drug Use History: None Reported - Past Family History Mother Family Medical History: Dementia Father Family Medical History: Congestive Heart Failure (CHF) Medications and Allergies Home Medications Medication Instructions Recorded Confirmed Type Fluticasone Nasal [place] [Flonase 1 spr EA NOSTRIL DAILY 07/23/16 07/19/19 History Nasal [place]] Lisinopril [Zestril] 5 mg PO DAILY 05/11/19 07/19/19 History Aspirin 81 mg PO DAILY 05/16/19 07/19/19 History Clopidogrel [Plavix] 75 mg PO DAILY 06/02/19 07/19/19 History Atorvastatin Calcium [Lipitor] 40 mg PO DAILY 07/19/19 07/19/19 History Allergies Allergy/AdvReac Type Severity Reaction Status Date / Time No Known Allergies Allergy Verified 07/19/19 16:45 Physical Exam Vitals: Vital Signs Temp Pulse Pulse Pulse Resp BP BP 07/20/19 08:17 99.4 F 87 18 108/59 07/20/19 04:00 98.7 F 85 18 106/62 07/20/19 02:07 98.4 F 88 110/65 07/20/19 02:05 98.4 F 88 16 110/65 07/20/19 00:00 98.2 F 96 16 105/63 07/19/19 23:53 88 106/64 07/19/19 23:52 88 16 108/64 07/19/19 23:23 87 16 102/61 07/19/19 23:13 87 16 104/61 07/19/19 23:06 98.4 F 91 18 100/59 07/19/19 21:00 93 20 93/60 07/19/19 20:34 98 F 95 18 110/61 07/19/19 20:30 92 24 92/57 07/19/19 20:18 98.4 F 78 18 91/56 07/19/19 20:00 92 24 84/55 07/19/19 19:30 93 23 96/61 07/19/19 19:00 98 24 100/61 07/19/19 18:59 98.9 F 98 16 90/58 07/19/19 18:30 98 19 101/61 07/19/19 18:29 98.4 F 101 H 16 104/64 07/19/19 18:19 98.5 F 112 H 16 101/61 07/19/19 18:00 107 H 23 101/66 07/19/19 17:30 106 H 19 108/62 07/19/19 17:00 113 H 18 114/66 07/19/19 16:30 105 H 15 118/69 07/19/19 16:00 114 H 20 115/63 07/19/19 15:50 124 H 07/19/19 15:43 98.5 F 124 H 16 115/63 07/19/19 15:35 Pulse Ox 07/20/19 08:17 98 07/20/19 04:00 95 07/20/19 02:07 07/20/19 02:05 07/20/19 00:00 97 07/19/19 23:53 07/19/19 23:52 07/19/19 23:23 07/19/19 23:13 07/19/19 23:06 07/19/19 21:00 96 07/19/19 20:34 98 07/19/19 20:30 96 07/19/19 20:18 07/19/19 20:00 95 07/19/19 19:30 97 07/19/19 19:00 98 07/19/19 18:59 97 07/19/19 18:30 96 07/19/19 18:29 98 07/19/19 18:19 96 07/19/19 18:00 99 07/19/19 17:30 100 07/19/19 17:00 100 07/19/19 16:30 100 07/19/19 16:00 100 07/19/19 15:50 07/19/19 15:43 100 07/19/19 15:35 100 Intake and Output 07/19/19 07/20/19 07/20/19 22:59 06:59 14:59 Intake Total 310 310 Balance 310 310 Intake: Blood Product 310 310 Rc As-1 Unit 310 [id number] Rc As-1 Unit 310 [id number] Other: Voiding Method Toilet # Voids 1 Weight 46.72 kg 46.9 kg - Constitutional General appearance: no acute distress - EENT Eyes: EOMI, PERRLA ENT: hearing grossly normal, normal oropharynx - Neck Neck: no lymphadenopathy - Respiratory Respiratory: bilateral: CTA - Cardiovascular Rhythm: regular Heart sounds: normal: S1, S2 - Gastrointestinal General gastrointestinal: normal bowel sounds, soft - Integumentary Integumentary: normal - Neurologic Neurologic: CNII-XII intact - Musculoskeletal Musculoskeletal: generalized weakness - Psychiatric Psychiatric: A&O x's 3, appropriate affect Results CBC & Chem 7: 07/20/19 06:59 07/19/19 15:41 Labs: Abnormal Lab Results - Last 24 Hours (Table) 07/19/19 07/19/19 07/19/19 Range/Units 15:40 15:41 15:41 RBC 2.27 L (4.30-5.90) m/uL Hgb 6.2 L* D (13.0-17.5) gm/dL Hct 19.8 L* (39.0-53.0) % Plt Count 503 H (150-450) k/uL APTT (22.0-30.0) sec BUN 22 H (9-20) mg/dL Total Bilirubin 0.1 L (0.2-1.3) mg/dL ALT 14 L (21-72) U/L Troponin I (0.000-0.034) ng/mL Crossmatch See Detail 07/19/19 07/19/19 07/19/19 Range/Units 15:41 15:41 22:40 RBC (4.30-5.90) m/uL Hgb (13.0-17.5) gm/dL Hct (39.0-53.0) % Plt Count (150-450) k/uL APTT 20.9 L (22.0-30.0) sec BUN (9-20) mg/dL Total Bilirubin (0.2-1.3) mg/dL ALT (21-72) U/L Troponin I 0.036 H* 5.560 H* (0.000-0.034) ng/mL Crossmatch 07/19/19 07/20/19 07/20/19 Range/Units 22:40 06:59 06:59 RBC 2.62 L 3.37 L (4.30-5.90) m/uL Hgb 7.3 L 9.6 L D (13.0-17.5) gm/dL Hct 22.8 L 29.1 L (39.0-53.0) % Plt Count (150-450) k/uL APTT (22.0-30.0) sec BUN (9-20) mg/dL Total Bilirubin (0.2-1.3) mg/dL ALT (21-72) U/L Troponin I 20.500 H* (0.000-0.034) ng/mL Crossmatch Chest x-ray: report reviewed Assessment and Plan (1) Anemia Narrative/Plan: The patient is being seen for severe anemia, with history as noted. He did have some mild anemia previously, at 11.3 in 06/05 , but the current level represents a major change. He has no evidence of obvious bleeding. With such a rapid rate of change in hemoglobin, the main concern is blood loss, especially as the patient is on aspirin and Plavix. He has never had a GI workup before. Anemia workup will be ordered, including iron studies. However these may be affected by having blood transfusion. - In the meantime agree with transfusions to keep hemoglobin in a safe range, above 7 - Assuming labs confirm the clinical impression, the patient would be recommended GI workup whenever felt to be stable for the same from the cardiac standpoint Current Visit: Yes Status: Acute Code(s): D64.9 - ANEMIA, UNSPECIFIED SNOMED Code(s): 292181691 (2) Elevated troponin Narrative/Plan: The patient has had an acute FL. Given his history of PVOD, he likely has underlying coronary artery disease. In fact he had been having chest pain off and on for several months even when his hemoglobin was in the 11-12 range. Defer to cardiology for further workup. Given this current presentation, it is even more imperative to find out with the patient has a source of blood loss, as he will need continued aggressive antiplatelet therapy In the acute setting, if anticoagulation is definitely felt to be required, I would recommend IV heparin as that has a shortest half life and easiest reversibility if the patient develop active bleeding Current Visit: Yes Status: Acute Code(s): R74.8 - ABNORMAL LEVELS OF OTHER SERUM ENZYMES SNOMED Code(s): 565062086
[2019-07-20] MEDS: HYDROmorphone 0.5 MG/0.5 ML SYRINGE IVP PRN ×2 (16:29→21:36)
[2019-07-20] MEDS: CLOPIDOGREL 75 MG TAB PO SCH ×2 (16:33→21:27)
[2019-07-20] MEDS: ASPIRIN 81 MG PO SCH ×2 (16:33→21:27)
[2019-07-20] MEDS ORDERED: HEPARIN SODIUM,PORCINE 5,000 UNIT/ML 1 ML VIAL IV PRN (18:04)
[2019-07-20] MEDS ORDERED: PEG 3350-NA SULF,BICARB,CL/KCL 4,000 ML BOTTLE PO ONE (18:31)
[2019-07-20] MEDS ORDERED: BISACODYL 5 MG TABLET.DR PO STA (18:33)
[2019-07-20 18:48] LABS: Basophils % (A) 0 %; Eosinophils # (A) 0.1 k/uL (0-0.7); Eosinophils % (A) 1 %; HCT 30.1 % (39.0-53.0); HGB 9.1 gm/dL (13.0-17.5); Hypochromasia Marked; Lymphocytes # (A) 2.1 k/uL (1.0-4.8); Lymphocytes % (A) 23 %; MCH 27.7 pg (25.0-35.0); MCHC 30.1 g/dL (31.0-37.0); Mean Platelet Volume 6.8; Monocytes # (A) 0.7 k/uL (0-1.0); Monocytes % (A) 7 %; Neutrophils # (A) 5.9 k/uL (1.3-7.7); Neutrophils % (A) 66 %; Platelet Count 412 k/uL (150-450); Poikilocytosis Moderate; RBC 3.28 m/uL (4.30-5.90); RDW 15.3 % (11.5-15.5)
[2019-07-20 18:50] LABS: Glucose,Whole Blood 107 mg/dL (75-99)
[2019-07-20 18:51] LABS: MCV 91.8 fL (80.0-100.0)
[2019-07-20 18:59] LABS: Partial Thromboplastin Time 22.4 sec (22.0-30.0); Prothrombin Time 10.6 sec (9.0-12.0)
[2019-07-20 20:35] LABS: Protein, Total 6.3 g/dL (6.2-8.2)
--- NOTE | 2019-07-20 20:43 | CONS ---
CONSULTATION DATE OF SERVICE: Randell Finley is a gentleman who is 69 years of age, a patient who has seen Dr. Barahona and Dr. Martinez within the last few months. He has significant claudication symptoms. He smokes heavily and used to be an alcoholic who quit alcohol in 2013 or so but had a relapse apparently. He came into the hospital yesterday with chest pain suggestive of angina with a precordial ST depression and sinus tachycardia. I reviewed the EKG and noted that his hemoglobin was around 6.0. I recommended no intervention, even though I suspected this was a [id number] [place]. I suggested blood transfusion, beta blockers and nitrates and hospitalized him. This morning he continues to have chest pain. The quality of pain is suggestive of angina, but the intensity is much less. I am recommending that we give him Lopressor, place him on a nitroglycerin drip and optimize care; and if hemoglobin remains stable, I will consider cardiac cath. His MCV is about 87, but his hemoglobin was 11.6 and now it is about 6.2, and he already received 2 units of packed RBCs. At the time of my evaluation, he is more comfortable. The discomfort in the chest has improved. If his pain gets worse, I will transfer him to ICU. PAST MEDICAL HISTORY: History of hypertension, hyperlipidemia and severe peripheral vascular disease. He underwent multiple interventions of his right lower extremity performed by Dr. Martinez in May of this year. He underwent percutaneous directional atherectomy of right superficial femoral artery and also balloon angioplasty of superficial femoral artery. He also underwent a stent placement of that. Left common artery access was achieved. He now has some claudication pain on the left side, but the right side is improved. Patient also has underlying hypertension and hyperlipidemia, smoking and previous history of alcoholism. MEDICATIONS: Home medications include: 1. Zestril. 2. Plavix 75 mg daily. 3. Aspirin 81 daily. 4. Atorvastatin 40 mg daily. ALLERGIES: NONE. PHYSICAL EXAMINATION: Blood pressure is 118/70. Pulse rate is about 90 per minute. HEENT unremarkable. Fundus was not examined by me. NECK: Supple. There is JVD of 1 cm. No carotid bruit. HEART: S1, S2 heard normally. There is a short systolic murmur. Lungs reveal diminished air entry. ABDOMEN: Soft. Lower extremities reveal diminished pulses. No edema. Central nervous system is normal. EKG initially revealed sinus tachycardia with precordial ST depression. Repeat EKG revealed a sinus mechanism without acute changes. Laboratory data suggest elevated troponin up to 20. His renal function is normal. Liver functions are also within normal limits. IMPRESSION: 1. Severe anemia of unclear etiology with a hemoglobin of 6.2. Received 2 units and his blood hemoglobin is now 9.6. 2. Peripheral arterial disease with claudication symptoms, status post right superficial femoral artery intervention by Dr. Martinez in May of this year. 3. Hypertension. 4. Hyperlipidemia. 5. Smoking and chronic obstructive pulmonary disease. 6. Past history of alcoholism. RECOMMENDATIONS: Given his low hemoglobin and the concern with any coronary intervention requiring blood thinners, I have deferred the procedure and explained this to the patient. We will therefore treat him with beta blockers and nitrates. If his hemoglobin remains stable and there is no source of bleeding, I will perform coronary angiography down the road, since I suspect he may have significant disease in addition to the recent acute event. I discussed my thoughts in detail with the patient. I will move him to ICU if he has more symptoms. Prognosis remains guarded. Thank you very much for the consult. MMODL / IJN: [id number] /
[2019-07-20 21:10] LABS: Ferritin 4.3 ng/mL (22.0-322.0); Iron Saturation 3.19 (15.00-50.00)
[2019-07-20] MEDS: HEPARIN SOD,PORK IN 0.45% NACL 25,000 UNIT in 0.45% NACL 1 250ML.BAG IV SCH (21:10)
--- NOTE | 2019-07-20 23:03 | P.HPIM ---
History of Present Illness H&P Date: 07/20/19 Chief Complaint: Chest pain History of presenting complaint: This is a pleasant [address] Bass. Patient called his regular checkup for a physical with his family doctor. Had been complaining of feeling tired for some time. For last 2 weeks patient had been getting a pressure across the chest pressure with exertion. Some shortness of breath. No radiation. Minimal dizziness lightheadedness. Just tired and rundown. Doctor's office called him to quit up to the ER as his hemoglobin was found to be 6.6 patient's ordered unit of blood last night. Later on patient is having more chest pain upon arriving on the floor. Blood pressures running a bit on the lower side. Cardiology was called. Nurse called and I ordered another unit of blood. Cardiology was consulted from the ER. Patient's said his cardiac symptoms have been getting worse in the last 2 weeks. Especially chest pressure. Patient does not know if he's been having black stools. No abdominal pain. Review of systems: GEN.: Tired EYES: None HEENT: None NECK: None RESPIRATORY: [As above CARDIOVASCULAR: As above GASTROINTESTINAL: None GENITOURINARY: None MUSCULOSKELETAL: None LYMPHATICS: None HEMATOLOGICAL: None PSYCHIATRY: None NEUROLOGICAL: None Social history: Smoked about 3 packs a day for more than 50 years. Was drinking excessive alcohol to about 6 years ago. 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 Lives alone. Physical examination: VITAL SIGNS: 98.5, 124, 16, 11 5/63, 100% on room air upon presentation GENERAL: BMI 16.7, laying in bed. EYES: Pupils equal. Conjunctiva palel. HEENT: External appearance of nose and ears normal, oral cavity grossly normal. NECK: JVD not raised; masses not palpable. HEART: First and second heart sounds are normal; no edema. LUNGS: Respiratory rate increased; diminished breath sounds. ABDOMEN: Soft, nontender, liver spleen not palpable, no masses palpable. PSYCH: Alert and oriented x3; mood and affect normal. NEUROLOGICAL: Cranial nerves grossly intact; no facial asymmetry, power and sensation grossly intact. LYMPHATICS: No lymph nodes palpable in the axilla and neck INVESTIGATIONS, reviewed in the clinical context: White count 7.2 hemoglobin 6.2 potassium 4.1 creatinine 1.0 Troponin 0.036, 5.5, 20.5 EKG tracing-diffuse ST segment depression from V2 through V6 2-D echo-severe global hypokinesia. EF 25-30%, severe mitral regurgitation, moderate tricuspid regurgitation, moderate pulmonary hypertension Chest x-ray film high. In personally reviewed by me-hyperinflation Assessment: -Acute non-ST elevation myocardial infarction, with a contribution from severe anemia -Severe symptomatic anemia, unclear at this point if it is a GI bleed -COPD in a current smoker -Chronic nicotine dependence patient cigarette smoker Plan: Patient did get a total of 2 units of blood last night. Cardiogenic consulted. Also consultation was made to hematology, GI. H&H is closely being followed. Patient was given aspirin Plavix Lipitor. Also started on IV heparin this morning. Also recent admitted beta jose. Care was discussed with the patient. Past Medical History Past Medical History: COPD, Hypertension Additional Past Medical History / Comment(s): extreme rufus leg pain with walking and resting,Hx sinus problems, Headaches, 2007 fell down 25 steps- broke nose and had a concussion, rt lazy eye,pancreatitis, History of Any Multi-Drug Resistant Organisms: None Reported Past Surgical History: Hernia Repair Additional Past Surgical History / Comment(s): Bilateral inguinal hernias, tooth extractions, stent in right leg Past Anesthesia/Blood Transfusion Reactions: Motion Sickness Additional Past Anesthesia/Blood Transfusion Reaction / Comment(s): no hx blood transfusion Past Psychological History: No Psychological Hx Reported Smoking Status: Current every day smoker Past Alcohol Use History: None Reported Additional Past Alcohol Use History / Comment(s): started smoking age 18, <1ppd. used to be heavy beer drinker till age 32 then a moderate wine drinker until her quit 2012 Past Drug Use History: None Reported - Past Family History Mother Family Medical History: Dementia Father Family Medical History: Congestive Heart Failure (CHF) Medications and Allergies Home Medications Medication Instructions Recorded Confirmed Type Fluticasone Nasal [place] [Flonase 1 spr EA NOSTRIL DAILY 07/23/16 07/19/19 History Nasal [place]] Lisinopril [Zestril] 5 mg PO DAILY 05/11/19 07/19/19 History Aspirin 81 mg PO DAILY 05/16/19 07/19/19 History Clopidogrel [Plavix] 75 mg PO DAILY 06/02/19 07/19/19 History Atorvastatin Calcium [Lipitor] 40 mg PO DAILY 07/19/19 07/19/19 History Allergies Allergy/AdvReac Type Severity Reaction Status Date / Time No Known Allergies Allergy Verified 07/19/19 16:45 Physical Exam Vitals: Vital Signs Temp Pulse Pulse Pulse Resp BP BP 07/20/19 08:17 99.4 F 87 18 108/59 07/20/19 04:00 98.7 F 85 18 106/62 07/20/19 02:07 98.4 F 88 110/65 07/20/19 02:05 98.4 F 88 16 110/65 07/20/19 00:00 98.2 F 96 16 105/63 07/19/19 23:53 88 106/64 07/19/19 23:52 88 16 108/64 07/19/19 23:23 87 16 102/61 07/19/19 23:13 87 16 104/61 07/19/19 23:06 98.4 F 91 18 100/59 07/19/19 21:00 93 20 93/60 07/19/19 20:34 98 F 95 18 110/61 07/19/19 20:30 92 24 92/57 07/19/19 20:18 98.4 F 78 18 91/56 07/19/19 20:00 92 24 84/55 07/19/19 19:30 93 23 96/61 07/19/19 19:00 98 24 100/61 07/19/19 18:59 98.9 F 98 16 90/58 07/19/19 18:30 98 19 101/61 07/19/19 18:29 98.4 F 101 H 16 104/64 07/19/19 18:19 98.5 F 112 H 16 101/61 07/19/19 18:00 107 H 23 101/66 07/19/19 17:30 106 H 19 108/62 07/19/19 17:00 113 H 18 114/66 07/19/19 16:30 105 H 15 118/69 07/19/19 16:00 114 H 20 115/63 07/19/19 15:50 124 H 07/19/19 15:43 98.5 F 124 H 16 115/63 07/19/19 15:35 Pulse Ox 07/20/19 08:17 98 07/20/19 04:00 95 07/20/19 02:07 07/20/19 02:05 10/03/19 00:00 97 07/19/19 23:53 07/19/19 23:52 07/19/19 23:23 07/19/19 23:13 07/19/19 23:06 07/19/19 21:00 96 07/19/19 20:34 98 07/19/19 20:30 96 07/19/19 20:18 07/19/19 20:00 95 07/19/19 19:30 97 07/19/19 19:00 98 07/19/19 18:59 97 07/19/19 18:30 96 07/19/19 18:29 98 07/19/19 18:19 96 07/19/19 18:00 99 07/19/19 17:30 100 07/19/19 17:00 100 07/19/19 16:30 100 07/19/19 16:00 100 07/19/19 15:50 07/19/19 15:43 100 07/19/19 15:35 100 Intake and Output 07/19/19 07/20/19 07/20/19 22:59 06:59 14:59 Intake Total 310 310 Balance 310 310 Intake: Blood Product 310 310 Rc As-1 Unit 310 [id number] Rc As-1 Unit 310 [id number] Other: Voiding Method Toilet # Voids 1 Weight 46.72 kg 46.9 kg Results CBC & Chem 7: 07/20/19 17:55 07/19/19 15:41 Labs: Abnormal Lab Results - Last 24 Hours (Table) 07/19/19 07/19/19 07/19/19 Range/Units 15:40 15:41 15:41 RBC 2.27 L (4.30-5.90) m/uL Hgb 6.2 L* D (13.0-17.5) gm/dL Hct 19.8 L* (39.0-53.0) % Plt Count 503 H (150-450) k/uL APTT (22.0-30.0) sec BUN 22 H (9-20) mg/dL Total Bilirubin 0.1 L (0.2-1.3) mg/dL ALT 14 L (21-72) U/L Troponin I (0.000-0.034) ng/mL Crossmatch See Detail 10/02/19 10/02/19 10/02/19 Range/Units 15:41 15:41 22:40 RBC (4.30-5.90) m/uL Hgb (13.0-17.5) gm/dL Hct (39.0-53.0) % Plt Count (150-450) k/uL APTT 20.9 L (22.0-30.0) sec BUN (9-20) mg/dL Total Bilirubin (0.2-1.3) mg/dL ALT (21-72) U/L Troponin I 0.036 H* 5.560 H* (0.000-0.034) ng/mL Crossmatch 07/19/19 07/20/19 07/20/19 Range/Units 22:40 06:59 06:59 RBC 2.62 L 3.37 L (4.30-5.90) m/uL Hgb 7.3 L 9.6 L D (13.0-17.5) gm/dL Hct 22.8 L 29.1 L (39.0-53.0) % Plt Count (150-450) k/uL APTT (22.0-30.0) sec BUN (9-20) mg/dL Total Bilirubin (0.2-1.3) mg/dL ALT (21-72) U/L Troponin I 20.500 H* (0.000-0.034) ng/mL Crossmatch Thrombosis Risk Factor Assmnt - Choose All That Apply Any of the Below Risk Factors Present?: Yes Each Factor Represents 1 point: Abnormal pulmonary function (COPD) Other Risk Factors: Yes Each Risk Factor Represents 2 Points: Age 61-74 years Thrombosis Risk Factor Assessment Total Risk Factor Score: 3 Thrombosis Risk Factor Assessment Level: Moderate Risk
[2019-07-21] MEDS: SODIUM CHLORIDE 0.9% 1,000 ML IV SCH ×3 (03:05→23:54)
[2019-07-21 04:51] LABS: African American GFR (CKD) >90 (>60 ml/min/1.73 sqM); Anion Gap 9 mmol/L; Blood Urea Nitrogen 13 mg/dL (9-20); Calcium 8.5 mg/dL (8.4-10.2); Carbon Dioxide 21 mmol/L (22-30); Chloride 106 mmol/L (98-107); Glucose 94 mg/dL (74-99); Potassium 4.2 mmol/L (3.5-5.1); Sodium 136 mmol/L (137-145)
[2019-07-21 05:38] LABS: HCT 29.9 % (39.0-53.0); HGB 9.4 gm/dL (13.0-17.5); Hypochromasia Marked; MCH 28.4 pg (25.0-35.0); MCHC 31.5 g/dL (31.0-37.0); MCV 90.2 fL (80.0-100.0); Mean Platelet Volume 6.4; Platelet Count 411 k/uL (150-450); Poikilocytosis Moderate; RBC 3.31 m/uL (4.30-5.90); RDW 14.8 % (11.5-15.5); WBC 10.4 k/uL (3.8-10.6)
[2019-07-21 06:25] LABS: Band Neutrophils % 1 %; Lymphocytes # (M) 1.77 k/uL (1.0-4.8); Monocytes # (M) 0.83 k/uL (0-1.0); Neutrophils % (M) 74 %; Nucleated Red Blood Cells 0 /100 WBC (0-0); Total Cells Counted 100
[2019-07-21 06:26] LABS: Anisocytosis (M) Present; Large Platelets Present; Polychromasia Present
[2019-07-21] MEDS ORDERED: LOSARTAN 25 MG TAB PO STA (07:03)
--- NOTE | 2019-07-21 07:45 | XR ---
EXAMINATION TYPE: XR chest 1V DATE OF EXAM: 07/21/2019 COMPARISON: 07/19/2019 HISTORY: Fluid overload. Shortness of breath. TECHNIQUE: Single frontal view of the chest is obtained. FINDINGS: There are new bibasilar opacities and pleural effusions. Right pleural effusion is small a nd left pleural effusion is trace. Lung volumes have decreased. Biapical lucency in biapical pleural- parenchymal scarring are noted. There is underlying COPD. Nodular density in the lateral right midlun g is seen. Cardiomediastinal silhouette is mildly enlarged. Diffuse osseous demineralization. IMPRESSION: New pleural effusions (small right and trace on left) and new bibasilar opacities that m ay represent confluent pulmonary edema or multifocal pneumonia. Nodular density in the right lateral midlung may also represent edema as it appears new from the prior. Attention on follow-up exams.
--- NOTE | 2019-07-21 08:29 | PN ---
PROGRESS NOTE Mr. Finley is in sinus rhythm. This gentleman presented with acute ischemic syndrome and went on to have a troponin elevation suggestive of an DC, probably non ST elevation DC. This occurred in the setting of severe anemia, hemoglobin of about 6.2. I have made the decision not to do any cardiac cath in view of his presentation. Since in May, his hemoglobin was about 11.6. He has significant peripheral arterial disease, underwent intervention of the right lower extremity vasculature by Dr. Martinez. However, at this time I explained to the patient that he did have an DC, ejection fraction is in the 25% to 30% range with global hypokinesia. I will add losartan 25 mg daily, increase Lopressor to 50 mg t.i.d. He is pain-free, resting comfortably. I will discontinue the nitro drip and place him on nitro paste. I am recommending an upper endoscopy and lower endoscopy but the patient is not able to take GoLYTELY. We will do therefore upper endoscopy and a CAT scan of the abdomen with contrast to rule out any lesions that are suspicious for malignancy. After this, I will consider cardiac catheterization to assess the extent of CAD. This cardiac cath is only to assess extent of CAD, not to perform any intervention because the acute ischemic episode has resolved. I discussed this matter in detail with the patient. Vitals are stable. Blood pressure is 120/70, pulse rate is about 90. S1-S2 heard normally, short systolic murmur noted. Lungs reveal diminished air entry. Abdomen and lower extremity exam is unchanged. In the lower extremities, pulses are diminished study. The patient is a smoker, previous alcoholic. He has COPD as well. Prognosis remains poor. MMODL / IJN: [id number] /
[2019-07-21] MEDS: NITROGLYCERIN-D5W PMX 50 MG in DEXTROSE/WATER 1 250ML.BAG IV SCH (08:36)
[2019-07-21] MEDS ORDERED: LOSARTAN 25 MG TAB PO SCH (09:00)
[2019-07-21 09:43] LABS: Free Kappa Lt Chain Qnt, Serum 3.54 mg/dL (0.33-1.94)
[2019-07-21] MEDS ORDERED: FUROSEMIDE 10 MG/ML 2 ML VIAL IV STA (10:08)
--- NOTE | 2019-07-21 11:14 | US ---
EXAMINATION TYPE: US chest DATE OF EXAM: 07/21/2019 COMPARISON: NONE CLINICAL HISTORY: Markings for thoracentesis by pulmonary staff. TECHNIQUE: Targeted ultrasound of the posterior lower right; left chest was assessed for comparison EXAM MEASUREMENTS: Right Pleural Effusion pocket size: 4.1 cm A/P Right skin surface to fluid distance: 2.9 cm A/P Left Pleural Effusion pocket size: 4.4 cm A/P Left skin surface to fluid distance: 3.2 cm A/P Right side marked for possible thoracentesis outside the dept. Left side marked for possible thoracentesis outside the dept. Pulmonologists are able to review the images in the patient?s EMR. IMPRESSIONS: Small bilateral pleural effusions as detailed above.
--- NOTE | 2019-07-21 12:06 | P.PN ---
Subjective Progress Note Date: 07/21/19 Principal diagnosis: Acute non-ST elevation myocardial infarction, and ischemic cardiomyopathy with LV dysfunction. This is a very pleasant 69-year-old gentleman who follows with Dr. Bass as his primary care physician. He has a history of hypertension, hyperlipidemia, chronic and ongoing tobacco dependence of greater than 50 years, peripheral vascular disease and is status post stent placement to the right leg in May 2019. He's been on Plavix, aspirin, Lipitor. Denies any home oxygen, no inhalers, no nebulized treatments, not been seen by a psychopaedic nurse in the past. He had recently been having episodes of chest pain and shortness of breath. He was seen by his PCP yesterday and found to have a hemoglobin of 6.2. He is transported here via EMS. He was having significant chest pain and had acute ST abnormalities in the inferior and anterolateral leon. He was seen and evaluated by cardiology yesterday and admitted to the selective care unit. He has received 2 units of packed red blood cells. Current hemoglobin 9.6. Troponins are 0.036, 5.560 and now 20.5. He was transferred here to the intensive care unit for the same. He is having ongoing chest discomfort. Nitroglycerin drip at 5 g per minute, Nitropaste in place. No heparin due to anemia. Denies any worsening shortness of breath, cough or congestion. Blood pressure 104/65 with a mean arterial pressure of 78. Currently afebrile. Heart rate in the 80s sinus rhythm. Continue with ST depression. O2 saturations in the upper 90s on 2 L/m per nasal cannula. Echocardiogram reveals mobile hypokinesia with ejection fraction of 25-30%. There is severe mitral regurgitation, moderate pulmonary hypertension. He is nothing by mouth for possible cardiac catheterization today. Patient was reevaluated today on 07/21/2019, remains in the ICU, has been seen by many consultants including cardiology, hematology/oncology, gastroenterology, and he received 2 units of packed RBCs for his bleeding, scheduled to undergo EGD today. Cardiology is holding on the cardiac catheterization for now, his hemoglobin this morning is 9.4. Heparin is presently on hold for EGD. Patient is feeling better, however his chest x-ray shows bilateral pleural effusions consistent with congestive heart failure. This is systolic congestive heart failure basically and I ordered an ultrasound, may consider a right-sided thoracentesis as the patient does not improve with diuretics. Clinically the patient denies any chest pain, denies any shortness of breath, no cough no wheezing, no fever, no chills, no hemoptysis. Objective - Vital Signs Vital signs: Vital Signs Temp 97.6 F 07/21/19 08:00 Pulse 87 07/21/19 11:00 Resp 20 07/21/19 11:00 BP 125/66 07/21/19 11:00 Pulse Ox 95 07/21/19 10:30 Intake & Output 07/20/19 07/21/19 07/21/19 18:59 06:59 18:59 Intake Total 549.0 1142.93 383.506 Output Total 300 250 700 Balance 249.0 892.93 -316.494 Weight 49.5 kg 49.5 kg Intake: IV 549.0 1098.0 322.0 Nitroglycerin-D5w Pmx 50 9.0 18.0 12.0 mg In Dextrose/Water 1 250ml.bag @ 5 MCG/MIN 1.5 mls/hr IV .Q24H LINDA Rx#: [id number] Sodium Chloride 0.9% 1, 540 1080 310 000 ml @ 25 mls/hr IV . Q24H LINDA Rx#:[id number] Intake, IV Titration 44.93 61.506 Amount Heparin Sod,Pork in 0.45% 44.93 26.381 NaCl 25,000 unit In 0.45 % NaCl 1 250ml.bag @ 12 UNITS/KG/HR 5.628 mls/hr IV .Q24H LINDA Rx#: [id number] Nitroglycerin-D5w Pmx 50 35.125 mg In Dextrose/Water 1 250ml.bag @ 5 MCG/MIN 1.5 mls/hr IV .Q24H LINDA Rx#: [id number] Output: Urine 300 250 700 Other: Voiding Method Urinal Urinal Urinal - Exam Physical Exam: Revealed a 69-year-old white male in no distress. Very pleasant. Head: Atraumatic, normocephalic. HEENT:[Neck is supple.] [No neck masses.] [No thyromegaly.] [No JVD.] PERRLA, EOMI, no icterus. Chest: [Diminished breath sounds and dullness at the bases especially at the right base. No rhonchi and no wheezes. Cardiac Exam: [Normal S1 and S2, no S3 gallop, no murmur.] Abdomen: [Soft, nontender, no megaly, no rebound, no guarding, normal bowel sounds.] Extremities: [No clubbing, no edema, no cyanosis.] Neurological Exam: [No focal neurologic deficit.] Alert oriented 3. Psychiatric: Normal mood affect and normal mental status examination. Lymphatics: No lymphadenopathy. Skin: No rashes - Labs CBC & Chem 7: 07/21/19 04:20 07/21/19 04:20 Labs: Abnormal Lab Results - Last 24 Hours (Table) 07/20/19 07/20/19 07/20/19 Range/Units 06:59 06:59 12:52 RBC (4.30-5.90) m/uL Hgb (13.0-17.5) gm/dL Hct (39.0-53.0) % MCHC (31.0-37.0) g/dL Neutrophils # (Manual) (1.3-7.7) k/uL Sodium (137-145) mmol/L Carbon Dioxide (22-30) mmol/L POC Glucose (mg/dL) 74 L (75-99) mg/dL Iron 13 L (65-175) ug/dL Iron Saturation 3.19 L (15.00-50.00) Ferritin 4.3 L (22.0-322.0) ng/mL RBC Folate 1,036 H (280 - 791) ng/mL Free Vera LC, Quant 3.54 H (0.33-1.94) mg/dL 07/20/19 07/20/19 07/21/19 Range/Units 17:55 18:39 04:20 RBC 3.28 L 3.31 L (4.30-5.90) m/uL Hgb 9.1 L 9.4 L (13.0-17.5) gm/dL Hct 30.1 L 29.9 L (39.0-53.0) % MCHC 30.1 L (31.0-37.0) g/dL Neutrophils # (Manual) 7.80 H (1.3-7.7) k/uL Sodium (137-145) mmol/L Carbon Dioxide (22-30) mmol/L POC Glucose (mg/dL) 107 H (75-99) mg/dL Iron (65-175) ug/dL Iron Saturation (15.00-50.00) Ferritin (22.0-322.0) ng/mL RBC Folate (280 - 791) ng/mL Free Vera LC, Quant (0.33-1.94) mg/dL 07/21/19 Range/Units 04:20 RBC (4.30-5.90) m/uL Hgb (13.0-17.5) gm/dL Hct (39.0-53.0) % MCHC (31.0-37.0) g/dL Neutrophils # (Manual) (1.3-7.7) k/uL Sodium 136 L (137-145) mmol/L Carbon Dioxide 21 L (22-30) mmol/L POC Glucose (mg/dL) (75-99) mg/dL Iron (65-175) ug/dL Iron Saturation (15.00-50.00) Ferritin (22.0-322.0) ng/mL RBC Folate (280 - 791) ng/mL Free Vera LC, Quant (0.33-1.94) mg/dL Assessment and Plan Assessment: #1 acute non-ST segment elevation myocardial infarction #2 Ischemic cardiomyopathy with severe global hypokinesia and ejection fraction 25-30%. #3 Acute anemia of unclear etiology. Presenting hemoglobin 6.2. Status post 2 units of packed red blood cells. Scheduled to undergo EGD today. #4 Peripheral vascular disease with disabling claudication recent placement to the right lower extremity on 06/02/2019. Maintained on Lipitor, Plavix and aspirin. #5 Chronic and ongoing tobacco dependence of greater than 50 years. #6 Hyperlipidemia. #7 COPD, currently inactive and stable. #8 History of pancreatitis. #9 History of alcoholism. #10 acute systolic congestive heart failure secondary to ischemic cardiomyopathy and LV dysfunction. Recommendation: Continue present supportive care measures, continue to monitor the patient in the ICU, he will eventually require cardiac catheterization may consider a right-sided thoracentesis, however I will cut down his IV fluid to KVO, will give the patient a trial of Lasix, and if he continues to have pleural effusions may consider thoracentesis. But this is clearly a fluid of congestive heart failure, and should respond to treatment of his cardiac condition/CHF. We will continue to follow. Ultrasound of the chest chest x-ray were all reviewed. Notes from different consultants were also reviewed Time with Patient: Less than 30
[2019-07-21] MEDS: IOPAMIDOL CONTRAST (ORAL USE) VIAL PO PRN ×2 (12:12→13:33)
[2019-07-21 12:47] LABS: HGB 9.8 gm/dL (13.0-17.5); Hypochromasia Marked; MCH 28.6 pg (25.0-35.0); MCHC 31.6 g/dL (31.0-37.0); MCV 90.3 fL (80.0-100.0); Mean Platelet Volume 7.1; Platelet Count 429 k/uL (150-450); Poikilocytosis Moderate; RBC 3.44 m/uL (4.30-5.90); RDW 15.4 % (11.5-15.5); WBC 11.2 k/uL (3.8-10.6)
[2019-07-21 13:13] LABS: Albumin 3.64 g/dL (3.80-4.90); Gamma Globulin 0.86 g/dL (0.70-1.50)
[2019-07-21] MEDS: METOPROLOL TARTRATE 50 MG TAB PO SCH ×3 (13:48→23:56)
[2019-07-21] MEDS: NITROGLYCERIN OINT 1 INCH/GM PACKET TOPICAL SCH ×3 (13:50→23:59)
--- NOTE | 2019-07-21 14:58 | CT ---
EXAMINATION TYPE: CT ChestAbdPelvis w con DATE OF EXAM: 07/21/2019 COMPARISON: 11/14/2014 HISTORY: rule out malignancy CT DLP: 553.1 mGycm. Automated Exposure Control for Dose Reduction was Utilized. CONTRAST: CT scan of the thorax, abdomen and pelvis is performed with IV Contrast, patient injected with 100 ml mL of Isovue 300. FINDINGS: LUNGS: There are moderate bilateral pleural effusions, right greater than left with associated compre ssive atelectasis. There is biapical pleural parenchymal scarring and blebs seen of the medial lung a pices. Mild centrilobular emphysematous changes seen throughout the remainder the lungs. Dependently within the right middle lobe there is groundglass opacity that could represent atelectasis given the dependent region or pneumonitis. Given the elongated morphology neoplasm be considered much less like ly. Main tracheobronchial tree is patent MEDIASTINUM: There are no greater than 1 cm hilar or mediastinal lymph nodes. No pericardial effusi on is seen. There are severe three-vessel coronary artery calcifications. LIVER/GB: Hepatic parenchyma is diffusely hypoattenuated in comparison to that of the spleen, most co mmonly seen in hepatic steatosis. This finding limits evaluation for hepatic masses. No gross evidenc e of hepatic mass is seen. No intrahepatic biliary ductal dilatation. Few punctate layering gallstone s are seen dependently on image 68. PANCREAS: The pancreatic duct is slightly enlarged measuring 3 mm in the pancreatic body however ther e are calcifications in the pancreatic head (sequela chronic pancreatitis) and therefore the pancreat ic ductal dilatation may also be on the basis of chronic pancreatitis. In the pancreatic head there i s a hypoattenuated 4 mm mass that appears separate from the pancreatic duct and common bile duct. Thi s is marked on axial series 201 image 68 and 67 and coronal image 36. Additionally there is fullness of the pancreatic head and uncinate process. Pancreatic head fullness is noted inferiorly such as on axial image 71. SPLEEN: No significant abnormality is seen. ADRENALS: There is fullness of the bilateral adrenal glands, left greater than right. Findings are si milar to the prior of 2014 and likely on the basis of adrenal gland hyperplasia. KIDNEYS: There is an approximately 1.1 cm left upper pole renal cyst. Remainder of the kidneys enhanc e symmetrically. On the delayed images there is a right lower pole renal lesion that is too small to accurately characterize measuring 6 mm. Other punctate to small to accurately characterize bilateral renal lesions are seen on delayed images. Kidneys excrete symmetrically without evidence of hydroneph rosis. BOWEL: There has been surgical repair of the right inguinal indirect hernia that previously contained bowel loops. Low-lying loops of small bowel are seen within the right lower quadrant abutting the pr ior hernia defect. No residual hernia seen. Low-lying loops of bowel are also seen in the left althou gh no hernia is present. There is circumferential long segment mucosal thickening of the rectosigmoid colon as seen on coronal image 61 this appears more pronounced dependently. Oral contrast does not extend into the distal col on and therefore the distal colon is somewhat suboptimally evaluated. LYMPH NODES: No greater than 1cm abdominal or pelvic lymph nodes are appreciated. OSSEOUS STRUCTURES: Mild degenerative changes of the spine. Degenerative changes of the femoral aceta bular joints are also seen and moderate in degree, right greater than left. Probable sacral nerve alyssa t perineural cysts widen the sacral neural foramen, left greater than right. OTHER: There is extensive atherosclerosis of the aorta and its branches. Atherosclerosis is most pron ounced distally with circumferential calcific plaquing and extent into the common iliac arteries is a lso severe. Only diminutive flow is seen in the visualized internal iliac arteries. Opacification of the inferior vena cava is poor and there is suboptimal evaluation for distal thrombus. IMPRESSION: 1. Subcentimeter pancreatic head lesion that is incompletely characterized. MRCP with and without con trast could assess for any continuity with the main pancreatic duct and potential cystic nature of th is mass. Also in the main pancreatic duct is mildly prominent that could relate to chronic pancreatit is is another sequela chronic pancreatitis are seen or pancreatic head mass. There is fullness of the pancreatic head without additional discrete mass. 2. Long segment mucosal thickening of the rectosigmoid colon. Infectious or inflammatory colitis are possibilities. Colonoscopy is recommended as there is concern for underlying malignancy within the pa tient history. 3. Mild degree hepatic steatosis. 4. Bilateral moderate pleural effusions and associated atelectasis. Right middle lobe probable atelec tasis is also seen. 5. Severe three-vessel coronary artery calcifications, a marker of coronary artery disease. 6. Simple left renal cysts and other bilateral subcentimeter renal lesions that are too small to accu rately characterize. 7. Advanced and severe atherosclerosis of the distal abdominal aorta and its branches.
[2019-07-21] MEDS: ATORVASTATIN 40 MG TAB PO SCH (18:00)
[2019-07-21] MEDS: HEPARIN SOD,PORK IN 0.45% NACL 25,000 UNIT in 0.45% NACL 1 250ML.BAG IV SCH (18:48)
[2019-07-21] MEDS: LOSARTAN 25 MG TAB PO SCH (22:03)
--- NOTE | 2019-07-21 22:05 | P.PN ---
Progress Note - Text Progress Note Date: 07/21/19 Interval history: This is a pleasant [address] Bass. Patient called his regular checkup for a physical with his family doctor. Had been complaining of feeling tired for some time. For last 2 weeks patient had been getting a pressure across the chest pressure with exertion. Some shortness of breath. No radiation. Minimal dizziness lightheadedness. Just tired and rundown. Doctor's office called him to quit up to the ER as his hemoglobin was found to be 6.6 patient's ordered unit of blood last night. Later on patient is having more chest pain upon arriving on the floor. Blood pressures running a bit on the lower side. Cardiology was called. Nurse called and I ordered another unit of blood. Cardiology was consulted from the ER. Patient's said his cardiac symptoms have been getting worse in the last 2 weeks. Especially chest pressure. Patient does not know if he's been having black stools. No abdominal pain. Today-laying in bed. A bit tired. No chest pain. Review of systems: Was done for constitutional, cardiovascular, GI, pulmonary. relevant finding as above Active Medications Acetaminophen (Tylenol Tab) 650 mg PO Q6HR PRN PRN Reason: Mild Pain or Fever > 100.5 Last Admin: 07/20/19 12:57 Dose: 650 mg Documented by: Aspirin (Aspirin) 81 mg PO DAILY ON LICENSE OF [facility] Last Admin: 07/20/19 21:27 Dose: Not Given Documented by: Atorvastatin Calcium (Lipitor) 40 mg PO DAILY ON LICENSE OF [facility] Last Admin: 07/21/19 18:00 Dose: 40 mg Documented by: Clopidogrel Bisulfate (Plavix) 75 mg PO DAILY ON LICENSE OF [facility] Last Admin: 07/20/19 21:27 Dose: Not Given Documented by: Heparin Sodium (Porcine) (Heparin) 0 unit IV PER PROTOCOL PRN; Protocol PRN Reason: Low PTT Hydromorphone HCl (Dilaudid) 0.5 mg IVP Q4HR PRN PRN Reason: Pain Last Admin: 07/20/19 21:36 Dose: 0.5 mg Documented by: Sodium Chloride (Saline 0.9%) 1,000 mls @ 25 mls/hr IV .Q24H ON LICENSE OF [facility] Last Admin: 07/21/19 13:51 Dose: 25 mls/hr Documented by: Heparin Sodium/Sodium Chloride (25,000 unit/ Sodium Chloride) 250 mls @ 5.628 mls/hr IV .Q24H [facility]; Protocol Last Titration: 07/21/19 19:36 Dose: 18 units/kg/hr, 8.442 mls/hr Documented by: Ferric Sodium Gluconate 125 mg (/ Sodium Chloride) 110 mls @ 100 mls/hr IVPB DAILY ON LICENSE OF [facility] Stop: 07/25/19 10:05 Losartan Potassium (Cozaar) 25 mg PO 2100 [facility] Metoprolol Tartrate (Lopressor) 50 mg PO TID ON LICENSE OF [facility] Last Admin: 07/21/19 18:00 Dose: 50 mg Documented by: Naloxone HCl (Narcan) 0.2 mg IV Q2M PRN PRN Reason: Opioid Reversal Nitroglycerin (Nitrostat) 0.4 mg SUBLINGUAL ONCE PRN PRN Reason: Chest Pain Last Admin: 07/19/19 21:48 Dose: 0.4 mg Documented by: Nitroglycerin (Nitro-Bid Oint) 0.5 inch TOPICAL Q6HR ON LICENSE OF [facility] Last Admin: 07/21/19 18:00 Dose: 0.5 inch Documented by: Ondansetron HCl (Zofran) 4 mg IVP Q8HR PRN PRN Reason: Nausea And Vomiting Last Admin: 07/20/19 23:57 Dose: 4 mg Documented by: Physical examination: VITAL SIGNS: 98.1, 15, 11 5/61, 94% room air GENERAL: Laying in bed, awake EYES: Pupils equal. Conjunctiva pale. HEENT: External appearance of nose and ears normal, oral cavity grossly normal. NECK: JVD not raised; masses not palpable. HEART: First and second heart sounds are normal; no edema. LUNGS: Respiratory rate increased; diminished breath sounds. ABDOMEN: Soft, nontender, liver spleen not palpable, no masses palpable. PSYCH: Alert and oriented x3; mood and affect normal. INVESTIGATIONS, reviewed in the clinical context: White count 11.2 hemoglobin 9.8 potassium 4[address] of the chest abdomen pelvis-moderate bilateral pleural effusion right greater than left. Compressive atelectasis. Bilateral apical pleural parenchymal scarring. Hepatic parenchyma is diffusely hypoactive admitted. Pancreatic calcification. Admission testing: Troponin 0.036, 5.5, 20.5 EKG tracing-diffuse ST segment depression from V2 through V6 2-D echo-severe global hypokinesia. EF 25-30%, severe mitral regurgitation, moderate tricuspid regurgitation, moderate pulmonary hypertension Chest x-ray film high. In personally reviewed by me-hyperinflation Assessment: -Acute non-ST elevation myocardial infarction, with a contribution from severe anemia -Severe symptomatic anemia, unclear at this point if it is a GI bleed -COPD in a current smoker -Chronic nicotine dependence patient cigarette smoker -Acute congestive heart failure exacerbation from systolic dysfunction EF 25-30% -Severe mitral regurgitation, moderate tricuspid regurgitation, nontraumatic -Moderate secondary pulmonary hypertension from COPD and possibly CHF Plan: Continue current medication treatment plan. Prognosis guarded. Need to picture does not underlying malignancy. Patient being followed by cardiology, pulmonary and oncology. Care was discussed with the patient. Remains in the ICU.
[2019-07-22 03:25] LABS: Basophils % (A) 0 %; Eosinophils # (A) 0.1 k/uL (0-0.7); Eosinophils % (A) 2 %; HCT 28.1 % (39.0-53.0); HGB 8.8 gm/dL (13.0-17.5); Hypochromasia Marked; Lymphocytes # (A) 1.3 k/uL (1.0-4.8); Lymphocytes % (A) 17 %; MCH 28.1 pg (25.0-35.0); MCHC 31.4 g/dL (31.0-37.0); MCV 89.4 fL (80.0-100.0); Mean Platelet Volume 6.9; Monocytes # (A) 0.6 k/uL (0-1.0); Monocytes % (A) 8 %; Neutrophils # (A) 5.4 k/uL (1.3-7.7); Neutrophils % (A) 70 %; Platelet Count 387 k/uL (150-450); Poikilocytosis Moderate; RBC 3.14 m/uL (4.30-5.90); RDW 15.7 % (11.5-15.5); WBC 7.7 k/uL (3.8-10.6)
[2019-07-22 04:06] LABS: ALT 33 U/L (21-72); AST 47 U/L (17-59); African American GFR (CKD) >90 (>60 ml/min/1.73 sqM); Albumin 3.3 g/dL (3.5-5.0); Alkaline Phosphatase 75 U/L (38-126); Amylase 49 U/L (30-110); Anion Gap 6 mmol/L; Blood Urea Nitrogen 8 mg/dL (9-20); Calcium 8.5 mg/dL (8.4-10.2); Carbon Dioxide 25 mmol/L (22-30); Chloride 105 mmol/L (98-107); Glucose 101 mg/dL (74-99); Potassium 3.9 mmol/L (3.5-5.1); Sodium 136 mmol/L (137-145); Total Bilirubin 0.5 mg/dL (0.2-1.3)
[2019-07-22] MEDS: HEPARIN SOD,PORK IN 0.45% NACL 25,000 UNIT in 0.45% NACL 1 250ML.BAG IV SCH (04:48)
--- NOTE | 2019-07-22 06:02 | XR ---
EXAMINATION TYPE: XR chest 1V portable DATE OF EXAM: 07/22/2019 HISTORY: effusions. REFERENCE: Previous study dated 07/21/2019. FINDINGS: Lung volumes are prominent. Heart size upper limits of normal. There is bibasilar airspace disease, unchanged previous. There are bilateral effusions. These are als o unchanged. Right midlung nodule is not clearly evident on this study. IMPRESSION: 1. COPD. 2. BIBASILAR AIRSPACE DISEASE. 3. BILATERAL EFFUSIONS.
[2019-07-22] MEDS ORDERED: POTASSIUM CHLORIDE ER 20 MEQ TAB.ER PO STA (06:50)
[2019-07-22] MEDS: NITROGLYCERIN OINT 1 INCH/GM PACKET TOPICAL SCH ×4 (07:06→23:26)
[2019-07-22] MEDS: METOPROLOL TARTRATE 50 MG TAB PO SCH ×3 (09:13→21:47)
[2019-07-22] MEDS: ATORVASTATIN 40 MG TAB PO SCH (09:13)
[2019-07-22] MEDS: FUROSEMIDE 10 MG/ML 2 ML VIAL IV SCH ×2 (09:25→21:47)
[2019-07-22] MEDS: SODIUM FERRIC GLUCONAT-SUCROSE 125 MG in SODIUM CHLORIDE 0.9% 100 ML IVPB SCH (10:36)
--- NOTE | 2019-07-22 10:45 | PN ---
PROGRESS NOTE Mr. Finley has multiple medical problems. Yesterday, he had a CAT scan of the abdomen and pelvis. This study revealed a possible lesion in the pancreas. There is also a rectosigmoid lesion. Patient came in with a hemoglobin of 6.2 and had an infarction with a precordial ST depression. His troponin went up significantly. Ejection fraction is in the 25% to 30% range. Patient has significant ischemic cardiomyopathy, peripheral arterial disease, smoking and past history of alcoholism. However, in the light of multiple comorbid conditions, I am not recommending any cardiac cath. Patient is hemodynamically stable. Cardiac-kerr stable to go ahead with the upper endoscopy and colonoscopy. There is also a question of a pancreatic lesion and ERCP has been advised based on the findings on the CAT scan. I will request Oncology and Gastroenterology to re-evaluate the patient and from a cardiac standpoint, there is no contraindication to perform upper endoscopy or colonoscopy for this patient. Only after these issues are covered, we will consider cardiac cath and revascularization options are very limited. Revascularization would involve giving him antiplatelet agents which will put him at a great risk for bleeding in a patient who recently had blood transfusion and hemoglobin of 6.2. So prior to any such intervention, upper endoscopy and colonoscopy are necessary and patient is stable to have this. The other issue is the pancreatic mass and I will await input from GI on this. Prognosis remains guarded. Vital signs are stable. S1, S2 heard normally. Lungs revealed decent air entry. Abdomen is soft. Mild tenderness. Lower extremities reveal diminished pulses. Rest of physical exam is unchanged. MMODL / IJN: [id number] /
--- NOTE | 2019-07-22 10:59 | P.CONS ---
History of Present Illness - Reason for Consult Consult date: 07/21/19 Anemia Requesting physician: Angel Hyot - Chief Complaint Anemia - History of Present Illness 69-year-old male with medical history significant for hypertension, hyperli pidemia, tobacco abuse, peripheral vascular disease who sent to the hospital for evaluation of anemia in the outpatient setting. The patient was reporting chest pain at that time which is present over the past 2 weeks. The patient was transfused 2 units on presentation with hemoglobin improving to 9.4. He was started on heparin, nitroglycerin drip and aspirin and Plavix therapy. He has been evaluated by the cardiology and hematology/oncology services. On questioning the patient denies any prior GI bleed. He is never required endoscopic evaluation in the past. He reports bowel movements are generally daily normal in color and caliber with no blood or black tarry stools reported. He denies any prior history of significant anemia. He does report occasional abdominal pain in the right upper quadrant but describes it as mild and nonspecific. He does not use any NSAIDs at home and reports instead this he takes Tylenol for pain. Denies any nausea or vomiting. Review of Systems REVIEW OF SYSTEMS: CONSTITUTIONAL: Denies any fevers, chills, weight change or fatigue. CARDIOVASCULAR: Denies any palpitations high or low blood pressures, but does report chest discomfort on presentation which is currently improved lying in bed. RESPIRATORY: Denies any shortness of breath, hemoptysis or cough. GENITOURINARY: No dysuria or hematuria. MUSCULOSKELETAL: No weakness reported. SKIN: Denies any new rashes or lesions, jaundice or pallor. PSYCHIATRIC: Denies any depression or anxiety. NEUROLOGY: Denies headache, denies any new focal deficits. EARS/NOSE/THROAT: No recent hearing change, congestion, nasal discharge or sore throat. EYES: No pain in eyes, discharge or change in vision. GASTROINTESTINAL: As per HPI. Past Medical History Past Medical History: COPD, Hypertension Additional Past Medical History / Comment(s): extreme rufus leg pain with walking and resting,Hx sinus problems, Headaches, 2008 fell down 25 steps- broke nose and had a concussion, rt lazy eye,pancreatitis, History of Any Multi-Drug Resistant Organisms: None Reported Past Surgical History: Hernia Repair Additional Past Surgical History / Comment(s): Bilateral inguinal hernias, tooth extractions, stent in right leg Past Anesthesia/Blood Transfusion Reactions: Motion Sickness Additional Past Anesthesia/Blood Transfusion Reaction / Comm: no hx blood transfusion Past Psychological History: No Psychological Hx Reported Smoking Status: Current every day smoker Past Alcohol Use History: None Reported Additional Past Alcohol Use History / Comment(s): started smoking age 18, <1ppd. used to be heavy beer drinker till age 32 then a moderate wine drinker until her quit 2012 Past Drug Use History: None Reported - Past Family History Mother Family Medical History: Dementia Father Family Medical History: Congestive Heart Failure (CHF) Medications and Allergies Home Medications Medication Instructions Recorded Confirmed Type Fluticasone Nasal [place] [Flonase 1 spr EA NOSTRIL DAILY 07/23/16 07/19/19 History Nasal [place]] Lisinopril [Zestril] 5 mg PO DAILY 05/11/19 07/19/19 History Aspirin 81 mg PO DAILY 05/16/19 07/19/19 History Clopidogrel [Plavix] 75 mg PO DAILY 06/02/19 07/19/19 History Atorvastatin Calcium [Lipitor] 40 mg PO DAILY 07/19/19 07/19/19 History Allergies Allergy/AdvReac Type Severity Reaction Status Date / Time No Known Allergies Allergy Verified 07/19/19 16:45 Physical Exam Vitals: Vital Signs Temp Pulse Resp BP Pulse Ox 07/22/19 10:00 68 11 L 118/63 07/22/19 09:00 74 15 116/61 98 07/22/19 08:00 97.3 F L 78 11 L 136/75 90 L 07/22/19 07:00 71 20 110/68 98 07/22/19 06:00 76 16 121/64 96 07/22/19 05:00 70 15 113/66 99 07/22/19 04:00 98.2 F 66 18 114/58 92 L 07/22/19 03:00 71 21 116/58 94 L 07/22/19 02:30 64 18 109/64 95 07/22/19 02:00 71 28 H 109/55 07/22/19 01:30 68 15 114/59 92 L 07/22/19 01:00 65 21 117/61 92 L 07/22/19 00:30 70 21 122/64 92 L 07/22/19 00:00 98.4 F 82 20 117/62 94 L 07/21/19 23:30 80 16 110/62 92 L 07/21/19 23:00 72 23 105/62 92 L 07/21/19 22:30 73 15 111/61 94 L 07/21/19 22:00 82 16 110/58 93 L 07/21/19 21:30 84 17 109/57 92 L 07/21/19 21:00 77 17 107/63 96 07/21/19 20:30 80 18 115/69 95 07/21/19 20:00 98.5 F 86 18 99/62 93 L 07/21/19 19:30 80 18 100/60 94 L 07/21/19 19:15 77 5 L 100/60 93 L 07/21/19 19:00 74 12 110/57 95 07/21/19 18:30 85 23 113/57 96 07/21/19 18:00 96 17 122/63 95 07/21/19 17:30 96 18 116/70 94 L 07/21/19 17:00 93 16 116/65 95 07/21/19 16:30 89 115/65 94 L 07/21/19 16:00 98.1 F 93 13 115/61 94 L 07/21/19 15:30 89 26 H 118/67 95 07/21/19 15:00 90 22 115/58 97 07/21/19 14:00 92 12 118/66 95 07/21/19 13:30 89 10 L 115/67 94 L 07/21/19 13:00 84 17 129/71 93 L 07/21/19 12:30 96 10 L 132/78 91 L 07/21/19 12:00 98.0 F 89 25 H 125/65 96 07/21/19 11:30 87 20 130/73 93 L 07/21/19 11:00 87 20 125/66 Intake and Output 07/21/19 07/22/19 07/22/19 22:59 06:59 14:59 Intake Total 709.831 237.666 80 Output Total 1000 250 600 Balance -290.169 -12.334 -520 Intake: IV 160 160 80 Sodium Chloride 0.9% 1, 160 160 80 000 ml @ 25 mls/hr IV . Q24H [facility] Rx#:[id number] Intake, IV Titration 49.831 77.666 Amount Heparin Sod,Pork in 0.45% 49.831 77.666 NaCl 25,000 unit In 0.45 % NaCl 1 250ml.bag @ 12 UNITS/KG/HR 5.628 mls/hr IV .Q24H [facility] Rx#: [id number] Oral 500 Output: Urine 1000 250 600 Other: Voiding Method Urinal Urinal Urinal Weight 46.9 kg On physical examination, patient appears comfortable in no apparent distress. HEAD: Normocephalic, atraumatic. EYES: No scleral icterus. No conjunctival injection. MOUTH: No lesions, tongue midline. NECK: Trachea midline, no gross abnormalities. CHEST: Decreased air entry in all lung samuel. HEART: S1-S2 appreciated. ABDOMEN: Soft, thin. Bowel sounds are positive. No organomegaly. No guarding or rigidity. EXTREMITIES: No pedal edema. SKIN: No rashes, no jaundice. NEUROLOGIC: Alert and oriented x3. No focal deficits. Results CBC & Chem 7: 07/22/19 03:11 07/22/19 03:11 Labs: Abnormal Lab Results - Last 24 Hours (Table) 07/20/19 07/20/19 07/21/19 Range/Units 06:59 06:59 12:35 WBC 11.2 H (3.8-10.6) k/uL RBC 3.44 L (4.30-5.90) m/uL Hgb 9.8 L (13.0-17.5) gm/dL Hct 31.0 L (39.0-53.0) % RDW (11.5-15.5) % APTT (22.0-30.0) sec Sodium (137-145) mmol/L BUN (9-20) mg/dL Glucose (74-99) mg/dL Total Protein (6.3-8.2) g/dL Albumin (3.5-5.0) g/dL Albumin (PEP) 3.64 L (3.80-4.90) g/dL RBC Folate 1,036 H (280 - 791) ng/mL 07/22/19 07/22/19 07/22/19 Range/Units 03:11 03:11 03:11 WBC (3.8-10.6) k/uL RBC 3.14 L (4.30-5.90) m/uL Hgb 8.8 L (13.0-17.5) gm/dL Hct 28.1 L (39.0-53.0) % RDW 15.7 H (11.5-15.5) % APTT 41.5 H (22.0-30.0) sec Sodium 136 L (137-145) mmol/L BUN 8 L (9-20) mg/dL Glucose 101 H (74-99) mg/dL Total Protein 6.0 L (6.3-8.2) g/dL Albumin 3.3 L (3.5-5.0) g/dL Albumin (PEP) (3.80-4.90) g/dL RBC Folate (280 - 791) ng/mL Assessment and Plan (1) Iron deficiency anemia Narrative/Plan: 69-year-old male with multiple medical comorbidities presenting with anemia from the outpatient setting as well as chest discomfort. Currently receiving treat ment in the ICU. Stool testing for occult blood negative, however iron studies consistent with iron deficiency anemia. Patient denies any signs or symptoms of GI bleeding. No prior endoscopic history reported. Denies any NSAID use and states that he takes Tylenol as needed for pain in the outpatient setting. Anemia likely multifactorial however cannot rule out a component of GI bleeding although patient is denying any signs or symptoms as mentioned and had stool testing which was negative as mentioned. Current Visit: Yes Status: Acute Code(s): D50.9 - IRON DEFICIENCY ANEMIA, UNSPECIFIED SNOMED Code(s): 03057105 Plan: Supportive care Okay for diet Patient evaluated by the anesthesiology service and is not felt to be safe for endoscopic evaluation at this time until underlying cardiac issues are addressed, the patient will require full endoscopic evaluation to rule out any component of GI bleeding as contributing to his anemia once medically stable Continue ICU care Appreciate recommendations from load dropper, cardiology, and hematology services Thank you for allowing us to participate in the care of the patient we will continue to follow
[2019-07-22] MEDS: ASPIRIN 81 MG PO SCH (11:21)
[2019-07-22] MEDS: CLOPIDOGREL 75 MG TAB PO SCH (11:21)
--- NOTE | 2019-07-22 13:45 | P.PN ---
Subjective Progress Note Date: 07/22/19 Principal diagnosis: Acute non-ST elevation myocardial infarction, and ischemic cardiomyopathy with LV dysfunction. This is a very pleasant 69-year-old gentleman who follows with Dr. Bass as his primary care physician. He has a history of hypertension, hyperlipidemia, chronic and ongoing tobacco dependence of greater than 50 years, peripheral vascular disease and is status post stent placement to the right leg in May 2019. He's been on Plavix, aspirin, Lipitor. Denies any home oxygen, no inhalers, no nebulized treatments, not been seen by a restrictive preparation operator in the past. He had recently been having episodes of chest pain and shortness of breath. He was seen by his PCP yesterday and found to have a hemoglobin of 6.2. He is transported here via EMS. He was having significant chest pain and had acute ST abnormalities in the inferior and anterolateral leon. He was seen and evaluated by cardiology yesterday and admitted to the selective care unit. He has received 2 units of packed red blood cells. Current hemoglobin 9.6. Troponins are 0.036, 5.560 and now 20.5. He was transferred here to the intensive care unit for the same. He is having ongoing chest discomfort. Nitroglycerin drip at 5 g per minute, Nitropaste in place. No heparin due to anemia. Denies any worsening shortness of breath, cough or congestion. Blood pressure 104/65 with a mean arterial pressure of 78. Currently afebrile. Heart rate in the 80s sinus rhythm. Continue with ST depression. O2 saturations in the upper 90s on 2 L/m per nasal cannula. Echocardiogram reveals mobile hypokinesia with ejection fraction of 25-30%. There is severe mitral regurgitation, moderate pulmonary hypertension. He is nothing by mouth for possible cardiac catheterization today. Patient was reevaluated today on 07/21/2019, remains in the ICU, has been seen by many consultants including cardiology, hematology/oncology, gastroenterology, and he received 2 units of packed RBCs for his bleeding, scheduled to undergo EGD today. Cardiology is holding on the cardiac catheterization for now, his hemoglobin this morning is 9.4. Heparin is presently on hold for EGD. Patient is feeling better, however his chest x-ray shows bilateral pleural effusions consistent with congestive heart failure. This is systolic congestive heart failure basically and I ordered an ultrasound, may consider a right-sided thoracentesis as the patient does not improve with diuretics. Clinically the patient denies any chest pain, denies any shortness of breath, no cough no wheezing, no fever, no chills, no hemoptysis. Reevaluated today on 07/22/2019, patient is feeling better, breathing easier, obviously he responded well to diuretics, chest x-ray is improving, no need for thoracentesis at this point. Patient denies any chest pain, denies any shortness of breath, no active symptoms of GI bleeding. Hemoglobin is holding at 8.8. Received a total of 2 units of packed RBCs since admission. CT of the chest abdomen and pelvis was abnormal, and now cardiology is deciding to hold on cardiac catheterization, would like further GI workup possibly including EGD and colonoscopy before proceeding with a cardiac catheterization since the patient may require anticoagulation therapy and antiplatelet therapy. Presently the patient remains on heparin. The rectosigmoid colon was concerning for infection or inflammatory colitis or malignancy. Hence patient may need at least a colonoscopy. As far as his pulmonary status is concerned, patient improved with diuretics, hence no plans to do thoracentesis. Objective - Vital Signs Vital signs: Vital Signs Temp 98.3 F 07/22/19 12:00 Pulse 78 07/22/19 13:00 Resp 21 07/22/19 13:00 BP 111/54 07/22/19 13:00 Pulse Ox 90 L 07/22/19 13:00 Intake & Output 07/21/19 07/22/19 07/22/19 18:59 06:59 18:59 Intake Total 552.506 867.497 240 Output Total 3700 250 1000 Balance -3147.494 617.497 -760 Weight 49.5 kg 46.9 kg Intake: IV 491.0 240 140 Nitroglycerin-D5w Pmx 50 21.0 mg In Dextrose/Water 1 250ml.bag @ 5 MCG/MIN 1.5 mls/hr IV .Q24H [facility] Rx#: [id number] Sodium Chloride 0.9% 1, 470 240 140 000 ml @ 25 mls/hr IV . Q24H [facility] Rx#:[id number] Intake, IV Titration 61.506 127.497 100 Amount Heparin Sod,Pork in 0.45% 26.381 127.497 NaCl 25,000 unit In 0.45 % NaCl 1 250ml.bag @ 12 UNITS/KG/HR 5.628 mls/hr IV .Q24H [facility] Rx#: [id number] Nitroglycerin-D5w Pmx 50 35.125 mg In Dextrose/Water 1 250ml.bag @ 5 MCG/MIN 1.5 mls/hr IV .Q24H [facility] Rx#: [id number] Sodium Ferric Gluconat- 100 Sucrose 125 mg In Sodium Chloride 0.9% 100 ml @ 100 mls/hr IVPB DAILY [facility] Rx#:[id number] Oral 500 Output: Urine 3700 250 1000 Other: Voiding Method Urinal Urinal Urinal - Exam Physical Exam: Revealed a 69-year-old white male in no distress. Very pleasant. Head: Atraumatic, normocephalic. HEENT:[Neck is supple.] [No neck masses.] [No thyromegaly.] [No JVD.] PERRLA, EOMI, no icterus. Chest: [Diminished breath sounds and dullness at the bases especially at the right base. No rhonchi and no wheezes. Cardiac Exam: [Normal S1 and S2, no S3 gallop, no murmur.] Abdomen: [Soft, nontender, no megaly, no rebound, no guarding, normal bowel sounds.] Extremities: [No clubbing, no edema, no cyanosis.] Neurological Exam: [No focal neurologic deficit.] Alert oriented 3. Psychiatric: Normal mood affect and normal mental status examination. Lymphatics: No lymphadenopathy. Skin: No rashes - Labs CBC & Chem 7: 07/22/19 03:11 07/22/19 03:11 Labs: Abnormal Lab Results - Last 24 Hours (Table) 07/22/19 07/22/19 07/22/19 Range/Units 03:11 03:11 03:11 RBC 3.14 L (4.30-5.90) m/uL Hgb 8.8 L (13.0-17.5) gm/dL Hct 28.1 L (39.0-53.0) % RDW 15.7 H (11.5-15.5) % APTT 41.5 H (22.0-30.0) sec Sodium 136 L (137-145) mmol/L BUN 8 L (9-20) mg/dL Glucose 101 H (74-99) mg/dL Total Protein 6.0 L (6.3-8.2) g/dL Albumin 3.3 L (3.5-5.0) g/dL 07/22/19 Range/Units 11:05 RBC (4.30-5.90) m/uL Hgb (13.0-17.5) gm/dL Hct (39.0-53.0) % RDW (11.5-15.5) % APTT 38.7 H (22.0-30.0) sec Sodium (137-145) mmol/L BUN (9-20) mg/dL Glucose (74-99) mg/dL Total Protein (6.3-8.2) g/dL Albumin (3.5-5.0) g/dL Assessment and Plan Assessment: #1 acute non-ST segment elevation myocardial infarction #2 Ischemic cardiomyopathy with severe global hypokinesia and ejection fraction 25-30%. #3 Acute anemia of unclear etiology. Presenting hemoglobin 6.2. Status post 2 units of packed red blood cells. GI workup is pending, patient had abnormal CT of the abdomen and pelvis as noted above. #4 Peripheral vascular disease with disabling claudication recent placement to the right lower extremity on 06/02/2019. Maintained on Lipitor, Plavix and aspirin. #5 Chronic and ongoing tobacco dependence of greater than 50 years. #6 Hyperlipidemia. #7 COPD, currently inactive and stable. #8 History of pancreatitis. #9 History of alcoholism. #10 acute systolic congestive heart failure secondary to ischemic cardiomyopathy and LV dysfunction. Recommendation: Continue to monitor in the ICU. Continue heparin as long as the patient is not experiencing any active GI bleeding. No plans for thoracentesis as the patient improved with diuretics only and the chest x-ray is showing improvement plus the patient is on room air with O2 saturation of 99%. He has no active pulmonary symptoms whatsoever. Continue bronchodilators. Continue GI and DVT prophylaxis. We will continue to monitor in the ICU until a final decision is made by gastroenterology and cardiology regarding further workup including colonoscopy, cardiac catheterization, and workup will have to be completed before I could transfer the patient out of the ICU at this point. Prognosis remains extremely guarded. Time with Patient: Less than 30
[2019-07-22] MEDS ORDERED: HEPARIN SODIUM,PORCINE 5,000 UNIT/ML 1 ML VIAL IV PRN (14:31)
--- NOTE | 2019-07-22 15:30 | P.PN ---
Progress Note - Text Progress Note Date: 07/22/19 Mr. Finley is feeling better today, not having angina today. Off of the nitroglycerin. I spoke with Dr. Shahid today, he is very adamant that the patient needs an EGD before considering cardiac intervention, he is concerned about a bleed and likely a troponin leak secondary anemia. Patient will be scheduled to have an EGD tomorrow morning at about 930am. He will be NPO after midnight, clear liquids until 0600 tomorrow. Spoke to the patient this afternoon as well as dr. Shahid and Dr. Mercado.
--- NOTE | 2019-07-22 16:28 | P.PN ---
Progress Note - Text Progress Note Date: 07/22/19 Interval history: This is a pleasant [address] Bass. Patient called his regular checkup for a physical with his family doctor. Had been complaining of feeling tired for some time. For last 2 weeks patient had been getting a pressure across the chest pressure with exertion. Some shortness of breath. No radiation. Minimal dizziness lightheadedness. Just tired and rundown. Doctor's office called him to quit up to the ER as his hemoglobin was found to be 6.6 patient's ordered unit of blood last night. Later on patient is having more chest pain upon arriving on the floor. Blood pressures running a bit on the lower side. Cardiology was called. Nurse called and I ordered another unit of blood. Cardiology was consulted from the ER. Patient's said his cardiac symptoms have been getting worse in the last 2 weeks. Especially chest pressure. Patient does not know if he's been having black stools. No abdominal pain. Patient admitted with acute non-ST elevation myocardial infarction, severe symptomatic anemia, COPD exacerbation, acute CHF exacerbation EF 25-30%. Today-ICU. laying in bed. A bit tired. No chest pain. Patient seen by anesthesia. Not felt to be stable to proceed for endoscopy. Breathing is stable. Tolerating his meals. Review of systems: Was done for constitutional, cardiovascular, GI, pulmonary. relevant finding as above Active Medications Acetaminophen (Tylenol Tab) 650 mg PO Q6HR PRN PRN Reason: Mild Pain or Fever > 100.5 Last Admin: 07/20/19 12:57 Dose: 650 mg Documented by: Aspirin (Aspirin) 81 mg PO DAILY [facility] Last Admin: 07/22/19 11:21 Dose: 81 mg Documented by: Atorvastatin Calcium (Lipitor) 40 mg PO DAILY [facility] Last Admin: 07/22/19 09:13 Dose: 40 mg Documented by: Clopidogrel Bisulfate (Plavix) 75 mg PO DAILY [facility] Last Admin: 07/22/19 11:21 Dose: 75 mg Documented by: Furosemide (Lasix) 20 mg IV Q12HR [facility] Last Admin: 07/22/19 09:25 Dose: 20 mg Documented by: Heparin Sodium (Porcine) (Heparin) 2,340 unit IV PER PROTOCOL PRN; Protocol PRN Reason: Low PTT Hydromorphone HCl (Dilaudid) 0.5 mg IVP Q4HR PRN PRN Reason: Pain Last Admin: 07/20/19 21:36 Dose: 0.5 mg Documented by: Sodium Chloride (Saline 0.9%) 1,000 mls @ 25 mls/hr IV .Q24H [facility] Last Admin: 07/21/19 23:54 Dose: 25 mls/hr Documented by: Heparin Sodium/Sodium Chloride (25,000 unit/ Sodium Chloride) 250 mls @ 5.628 mls/hr IV .Q24H [facility]; Protocol Last Titration: 07/22/19 14:26 Dose: 23 units/kg/hr, 10.787 mls/hr Documented by: Ferric Sodium Gluconate 125 mg (/ Sodium Chloride) 110 mls @ 100 mls/hr IVPB DAILY [facility] Stop: 07/25/19 10:05 Last Admin: 07/22/19 10:36 Dose: 100 mls/hr Documented by: Losartan Potassium (Cozaar) 25 mg PO 2100 [facility] Last Admin: 07/21/19 22:03 Dose: 25 mg Documented by: Metoprolol Tartrate (Lopressor) 50 mg PO TID [facility] Last Admin: 07/22/19 09:13 Dose: 50 mg Documented by: Naloxone HCl (Narcan) 0.2 mg IV Q2M PRN PRN Reason: Opioid Reversal Nitroglycerin (Nitrostat) 0.4 mg SUBLINGUAL ONCE PRN PRN Reason: Chest Pain Last Admin: 07/19/19 21:48 Dose: 0.4 mg Documented by: Nitroglycerin (Nitro-Bid Oint) 0.5 inch TOPICAL Q6HR [facility] Last Admin: 07/22/19 14:25 Dose: 0.5 inch Documented by: Ondansetron HCl (Zofran) 4 mg IVP Q8HR PRN PRN Reason: Nausea And Vomiting Last Admin: 07/20/19 23:57 Dose: 4 mg Documented by: Physical examination: VITAL SIGNS: 78, 21, 11 4/54, 90% on room air GENERAL: Sitting up in bed, tired EYES: Pupils equal. Conjunctiva pale. HEENT: External appearance of nose and ears normal, oral cavity grossly normal. NECK: JVD not raised; masses not palpable. HEART: First and second heart sounds are normal; no edema. LUNGS: Respiratory rate increased; diminished breath sounds. ABDOMEN: Soft, nontender, liver spleen not palpable, no masses palpable. PSYCH: Alert and oriented x3; mood and affect normal. INVESTIGATIONS, reviewed in the clinical context: White count 7.7 hemoglobin 8.8 potassium 3.9 creatinine 0.80 Admission testing: Troponin 0.036, 5.5, 20.5 EKG tracing-diffuse ST segment depression from V2 through V6 2-D echo-severe global hypokinesia. EF 25-30%, severe mitral regurgitation, moderate tricuspid regurgitation, moderate pulmonary hypertension Chest x-ray film high. In personally reviewed by me-hyperinflation CT of the chest abdomen pelvis-moderate bilateral pleural effusion right greater than left. Compressive atelectasis. Bilateral apical pleural parenchymal scarring. Hepatic parenchyma is diffusely hypoactive admitted. Pancreatic calcification. Assessment: -Acute non-ST elevation myocardial infarction, with a contribution from severe anemia -Severe symptomatic anemia, unclear at this point if it is a GI bleed -COPD in a current smoker -Chronic nicotine dependence patient cigarette smoker -Acute congestive heart failure exacerbation from systolic dysfunction EF 25-30% -Severe mitral regurgitation, moderate tricuspid regurgitation, nontraumatic -Moderate secondary pulmonary hypertension from COPD and possibly CHF -Area of narrowing in the colon. To rule out malignancy. Plan: Continue current medication treatment plan. Seen by anesthesia. Not felt to be stable for endoscopy. Continue current medication treatment plan follow.
--- NOTE | 2019-07-22 20:55 | P.PN ---
Subjective Progress Note Date: 07/22/19 Principal diagnosis: Anemia, abnormal computed tomography scan Patient is seen lying in bed with no nausea or vomiting reported. He has tolerated his diet. No signs or symptoms of GI bleeding reported. Objective - Vital Signs Vital signs: Vital Signs Temp 97.3 F L 07/22/19 08:00 Pulse 68 07/22/19 10:00 Resp 11 L 07/22/19 10:00 BP 118/63 07/22/19 10:00 Pulse Ox 98 07/22/19 09:00 Intake & Output 07/21/19 07/22/19 07/22/19 18:59 06:59 18:59 Intake Total 552.506 867.497 180 Output Total 3700 250 600 Balance -3147.494 617.497 -420 Weight 49.5 kg 46.9 kg Intake: IV 491.0 240 80 Nitroglycerin-D5w Pmx 50 21.0 mg In Dextrose/Water 1 250ml.bag @ 5 MCG/MIN 1.5 mls/hr IV .Q24H [facility] Rx#: [id number] Sodium Chloride 0.9% 1, 470 240 80 000 ml @ 25 mls/hr IV . Q24H [facility] Rx#:[id number] Intake, IV Titration 61.506 127.497 100 Amount Heparin Sod,Pork in 0.45% 26.381 127.497 NaCl 25,000 unit In 0.45 % NaCl 1 250ml.bag @ 12 UNITS/KG/HR 5.628 mls/hr IV .Q24H [facility] Rx#: [id number] Nitroglycerin-D5w Pmx 50 35.125 mg In Dextrose/Water 1 250ml.bag @ 5 MCG/MIN 1.5 mls/hr IV .Q24H [facility] Rx#: [id number] Sodium Ferric Gluconat- 100 Sucrose 125 mg In Sodium Chloride 0.9% 100 ml @ 100 mls/hr IVPB DAILY [facility] Rx#:[id number] Oral 500 Output: Urine 3700 250 600 Other: Voiding Method Urinal Urinal Urinal - Exam On physical examination, patient appears comfortable in no apparent distress. HEAD: Normocephalic, atraumatic. EYES: No scleral icterus. No conjunctival injection. MOUTH: No lesions, tongue midline. NECK: Trachea midline, no gross abnormalities. CHEST: Decreased air entry in all lung samuel. HEART: S1-S2 appreciated. ABDOMEN: Soft, obese. Bowel sounds are positive. No organomegaly. No guarding or rigidity. EXTREMITIES: No pedal edema. SKIN: No rashes, no jaundice. NEUROLOGIC: Alert and oriented x3. No focal deficits. - Labs CBC & Chem 7: 07/22/19 03:11 07/22/19 03:11 Labs: Abnormal Lab Results - Last 24 Hours (Table) 07/20/19 07/20/19 07/21/19 Range/Units 06:59 06:59 12:35 WBC 11.2 H (3.8-10.6) k/uL RBC 3.44 L (4.30-5.90) m/uL Hgb 9.8 L (13.0-17.5) gm/dL Hct 31.0 L (39.0-53.0) % RDW (11.5-15.5) % APTT (22.0-30.0) sec Sodium (137-145) mmol/L BUN (9-20) mg/dL Glucose (74-99) mg/dL Total Protein (6.3-8.2) g/dL Albumin (3.5-5.0) g/dL Albumin (PEP) 3.64 L (3.80-4.90) g/dL RBC Folate 1,036 H (280 - 791) ng/mL 07/22/19 07/22/19 07/22/19 Range/Units 03:11 03:11 03:11 WBC (3.8-10.6) k/uL RBC 3.14 L (4.30-5.90) m/uL Hgb 8.8 L (13.0-17.5) gm/dL Hct 28.1 L (39.0-53.0) % RDW 15.7 H (11.5-15.5) % APTT 41.5 H (22.0-30.0) sec Sodium 136 L (137-145) mmol/L BUN 8 L (9-20) mg/dL Glucose 101 H (74-99) mg/dL Total Protein 6.0 L (6.3-8.2) g/dL Albumin 3.3 L (3.5-5.0) g/dL Albumin (PEP) (3.80-4.90) g/dL RBC Folate (280 - 791) ng/mL Assessment and Plan (1) Iron deficiency anemia Narrative/Plan: 69-year-old male with multiple medical comorbidities presenting with anemia from the outpatient setting as well as chest discomfort. Currently receiving treatment in the ICU. Stool testing for occult blood negative, however iron studies consistent with iron deficiency anemia. Patient denies any signs or symptoms of GI bleeding. No prior endoscopic history reported. Denies any NS AID use and states that he takes Tylenol as needed for pain in the outpatient setting. Anemia likely multifactorial however cannot rule out a component of GI bleeding although patient is denying any signs or symptoms as mentioned and had stool testing which was negative as mentioned. Current Visit: Yes Status: Acute Code(s): D50.9 - IRON DEFICIENCY ANEMIA, UNSPECIFIED SNOMED Code(s): 26456570 (2) Abnormality of pancreatic duct Narrative/Plan: Computed tomography scan of the chest abdomen and pelvis performed with abnormalities of the pancreatic head and ducts noted. The patient does have a history of pancreatitis and alcohol abuse and findings likely represent sequelae of chronic pancreatitis. This can be further with MRI/MRCP with and without contrast of the abdomen. Current Visit: Yes Status: Acute Code(s): Q45.3 - OTH CONGENITAL MALFORMATIONS OF PANCREAS AND PANCREATIC DUCT SNOMED Code(s): 398273357 (3) Abnormal CT scan, sigmoid colon Narrative/Plan: Nonspecific thickening of the mucosa of the rectosigmoid on computed tomography scan of the abdomen. The patient denies any change in bowel habits, be type symptoms, or blood per rectum. Current Visit: Yes Status: Acute Code(s): R93.3 - ABNORMAL FINDINGS ON DX IMAGING OF PRT DIGESTIVE TRACT SNOMED Code(s): 711770022 Plan: Supportive care Okay for diet, nothing by mouth after midnight No plans for ERCP, pancreatic abnormalities seen on computed tomography scan can be further evaluated with MRCP of the abdomen with and without contrast Case discussed with anesthesia and the plan is for EGD tomorrow Patient will need colonoscopy in the future when medically stable Continue ICU care Appreciate recommendations from carbon lamp cleaner, cardiology, and hematology services Thank you for allowing us to participate in the care of the patient we will continue to follow
[2019-07-22] MEDS: LOSARTAN 25 MG TAB PO SCH (22:28)
[2019-07-23 04:50] LABS: Basophils # (A) 0.1 k/uL (0-0.2); Basophils % (A) 1 %; Eosinophils # (A) 0.1 k/uL (0-0.7); Eosinophils % (A) 2 %; HGB 9.3 gm/dL (13.0-17.5); Hypochromasia Marked; Lymphocytes # (A) 1.3 k/uL (1.0-4.8); Lymphocytes % (A) 17 %; MCH 27.3 pg (25.0-35.0); MCHC 30.1 g/dL (31.0-37.0); MCV 90.7 fL (80.0-100.0); Mean Platelet Volume 7.4; Monocytes # (A) 0.8 k/uL (0-1.0); Monocytes % (A) 10 %; Neutrophils # (A) 5.2 k/uL (1.3-7.7); Neutrophils % (A) 68 %; Platelet Count 428 k/uL (150-450); Poikilocytosis Slight; RBC 3.42 m/uL (4.30-5.90); RDW 15.6 % (11.5-15.5); WBC 7.7 k/uL (3.8-10.6)
[2019-07-23 05:52] LABS: ALT 28 U/L (21-72); AST 36 U/L (17-59); African American GFR (CKD) >90 (>60 ml/min/1.73 sqM); Albumin 3.3 g/dL (3.5-5.0); Alkaline Phosphatase 77 U/L (38-126); Anion Gap 7 mmol/L; Blood Urea Nitrogen 7 mg/dL (9-20); Calcium 8.7 mg/dL (8.4-10.2); Carbon Dioxide 28 mmol/L (22-30); Chloride 103 mmol/L (98-107); Glucose 98 mg/dL (74-99); Potassium 3.7 mmol/L (3.5-5.1); Sodium 138 mmol/L (137-145); Total Bilirubin 0.3 mg/dL (0.2-1.3); Total Protein 6.1 g/dL (6.3-8.2)
[2019-07-23] MEDS: FUROSEMIDE 10 MG/ML 2 ML VIAL IV SCH ×2 (06:20→17:29)
[2019-07-23] MEDS: NITROGLYCERIN OINT 1 INCH/GM PACKET TOPICAL SCH ×3 (06:21→17:29)
--- NOTE | 2019-07-23 07:03 | XR ---
EXAMINATION TYPE: XR chest 1V portable DATE OF EXAM: 07/23/2019 HISTORY: effusions. REFERENCE: Previous study dated 07/22/2019. FINDINGS: Lung volumes are prominent. The heart is not enlarged. There are small, bilateral effusions . There is barium in the left upper quadrant likely within the colon from previous contrast examinati on. There is bibasilar airspace disease. IMPRESSION: NO SIGNIFICANT INTERVAL CHANGE IN THE APPEARANCE OF THE CHEST.
[2019-07-23] MEDS: HEPARIN SOD,PORK IN 0.45% NACL 25,000 UNIT in 0.45% NACL 1 250ML.BAG IV SCH (07:10)
[2019-07-23] MEDS: SODIUM FERRIC GLUCONAT-SUCROSE 125 MG in SODIUM CHLORIDE 0.9% 100 ML IVPB SCH (08:25)
[2019-07-23] MEDS ORDERED: ETOMIDATE 2 MG/ML 10 ML VIAL ONE (09:08)
[2019-07-23] MEDS ORDERED: IV FLUID CONTINUATION 500 ML IV ONE (09:10)
--- NOTE | 2019-07-23 09:39 | P.PCN ---
Date of Procedure: 07/23/19 Description of Procedure: BRIEF HISTORY: 69-year-old male with multiple medical comorbidities presenting with anemia from the outpatient setting as well as chest discomfort. Currently receiving treatment in the ICU. Stool testing for occult blood negative, however iron studies consistent with iron deficiency anemia. Patient denies any signs or symptoms of GI bleeding. No prior endoscopic history reported. Denies any NSAID use and states that he takes Tylenol as needed for pain in the outpatient setting. Anemia likely multifactorial however cannot rule out a component of GI bleeding although patient is denying any signs or symptoms as mentioned and had stool testing which was negative as mentioned. PROCEDURE PERFORMED: Esophagogastroduodenoscopy with biopsy. PREOPERATIVE DIAGNOSIS: Iron deficiency anemia. ESTIMATED BLOOD LOSS: Minimal. IV sedation per anesthesia. PROCEDURE: After informed consent was obtained, the patient was brought into the endoscopy unit. IV sedation was administered by Anesthesia under continuous monitoring. Initially the Olympus GIF-190 video endoscope was inserted into the mouth. Esophagus intubated without any difficulty. It was gradually advanced into the stomach and duodenum and carefully examined. The bulb and the second part of the duodenum appeared normal, with biopsies taken. The scope at this time was withdrawn to the stomach, adequately insufflated with air, and upon careful examination, mucosa of the antrum, body, cardia and the fundus appeared normal, except for some mild scattered erythema in the antrum and body suggestive of mild gastritis with biopsies of the antrum and body taken. A 2 cm hiatal hernia was noted. The scope was then withdrawn into the esophagus. The GE junction was located at 37 cm from the incisors. The esophagus appeared normal, however there did appear to be a tongue of long segment Parson's esophagus. There were no erosions or ulcerations seen and the patient tolerated the procedure well. IMPRESSION: 1. Mild gastritis antrum body, biopsied. 2. Small hiatal hernia. 3. Duodenal biopsies. RECOMMENDATIONS: The findings of this examination were discussed with the patient in the ICU team. Okay for heart healthy diet. Nothing by mouth after midnight. Plan for flexible sigmoidoscopy tomorrow to look for abnormality seen on CT scan of the abdomen described as thickening in the area of the rectosigmoid. Hold heparin therapy for 4 hours prior to procedure plan for approximately 1 PM tomorrow. Tap water enemas should be administered 2 hours and then again one hour prior to procedure tomorrow.
[2019-07-23] MEDS: ASPIRIN 81 MG PO SCH (10:43)
[2019-07-23] MEDS: CLOPIDOGREL 75 MG TAB PO SCH (10:43)
[2019-07-23] MEDS: ATORVASTATIN 40 MG TAB PO SCH (10:43)
[2019-07-23] MEDS: METOPROLOL TARTRATE 50 MG TAB PO SCH ×3 (10:43→20:25)
--- NOTE | 2019-07-23 12:34 | P.PN ---
Subjective Progress Note Date: 07/23/19 Principal diagnosis: Acute non-ST elevation myocardial infarction, and ischemic cardiomyopathy with LV dysfunction. This is a very pleasant 69-year-old gentleman who follows with Dr. Bass as his primary care physician. He has a history of hypertension, hyperlipidemia, chronic and ongoing tobacco dependence of greater than 50 years, peripheral vascular disease and is status post stent placement to the right leg in May 2019. He's been on Plavix, aspirin, Lipitor. Denies any home oxygen, no inhalers, no nebulized treatments, not been seen by a journeyman molder in the past. He had recently been having episodes of chest pain and shortness of breath. He was seen by his PCP yesterday and found to have a hemoglobin of 6.2. He is transported here via EMS. He was having significant chest pain and had acute ST abnormalities in the inferior and anterolateral leon. He was seen and evaluated by cardiology yesterday and admitted to the selective care unit. He has received 2 units of packed red blood cells. Current hemoglobin 9.6. Troponins are 0.036, 5.560 and now 20.5. He was transferred here to the intensive care unit for the same. He is having ongoing chest discomfort. Nitroglycerin drip at 5 g per minute, Nitropaste in place. No heparin due to anemia. Denies any worsening shortness of breath, cough or congestion. Blood pressure 104/65 with a mean arterial pressure of 78. Currently afebrile. Heart rate in the 80s sinus rhythm. Continue with ST depression. O2 saturations in the upper 90s on 2 L/m per nasal cannula. Echocardiogram reveals mobile hypokinesia with ejection fraction of 25-30%. There is severe mitral regurgitation, moderate pulmonary hypertension. He is nothing by mouth for possible cardiac catheterization today. Patient was reevaluated today on 07/21/2019, remains in the ICU, has been seen by many consultants including cardiology, hematology/oncology, gastroenterology, and he received 2 units of packed RBCs for his bleeding, scheduled to undergo EGD today. Cardiology is holding on the cardiac catheterization for now, his hemoglobin this morning is 9.4. Heparin is presently on hold for EGD. Patient is feeling better, however his chest x-ray shows bilateral pleural effusions consistent with congestive heart failure. This is systolic congestive heart failure basically and I ordered an ultrasound, may consider a right-sided thoracentesis as the patient does not improve with diuretics. Clinically the patient denies any chest pain, denies any shortness of breath, no cough no wheezing, no fever, no chills, no hemoptysis. Reevaluated today on 07/22/2019, patient is feeling better, breathing easier, obviously he responded well to diuretics, chest x-ray is improving, no need for thoracentesis at this point. Patient denies any chest pain, denies any shortness of breath, no active symptoms of GI bleeding. Hemoglobin is holding at 8.8. Received a total of 2 units of packed RBCs since admission. CT of the chest abdomen and pelvis was abnormal, and now cardiology is deciding to hold on cardiac catheterization, would like further GI workup possibly including EGD and colonoscopy before proceeding with a cardiac catheterization since the patient may require anticoagulation therapy and antiplatelet therapy. Presently the patient remains on heparin. The rectosigmoid colon was concerning for infection or inflammatory colitis or malignancy. Hence patient may need at least a colonoscopy. As far as his pulmonary status is concerned, patient improved with diuretics, hence no plans to do thoracentesis. Reevaluated today on 07/23/2019, patient remains in the ICU, underwent EGD today,and he was found to have mild gastritis, small hiatal hernia, clearly does not explain his GI bleeding, patient is scheduled to have sigmoidoscopy in the morning.hemoglobin today is 9.3, his basic metabolic profile is normal renal profile is normal PTT is 54.9.patient denies any chest pain, no cough, no wheezing, and no shortness of breath. Objective - Vital Signs Vital signs: Vital Signs Temp 97.5 F L 07/23/19 12:00 Pulse 73 07/23/19 12:00 Resp 22 07/23/19 12:00 BP 101/62 07/23/19 12:00 Pulse Ox 97 07/23/19 12:00 Intake & Output 07/22/19 07/23/19 07/23/19 18:59 06:59 18:59 Intake Total 430.361 337.273 486.140 Output Total 4615 050 4188 Balance -1319.639 -612.727 -863.860 Weight 46.5 kg Intake: IV 240 265 200 Sodium Chloride 0.9% 1, 240 265 100 000 ml @ 25 mls/hr IV . Q24H [facility] Rx#:[id number] Sodium Ferric Gluconat- 100 Sucrose 125 mg In Sodium Chloride 0.9% 100 ml @ 100 mls/hr IVPB DAILY [facility] Rx#:[id number] Intake, IV Titration 190.361 72.273 86.140 Amount Heparin Sod,Pork in 0.45% 90.361 72.273 86.140 NaCl 25,000 unit In 0.45 % NaCl 1 250ml.bag @ 12 UNITS/KG/HR 5.628 mls/hr IV .Q24H [facility] Rx#: [id number] Sodium Ferric Gluconat- 100 Sucrose 125 mg In Sodium Chloride 0.9% 100 ml @ 100 mls/hr IVPB DAILY [facility] Rx#:[id number] Oral 200 Output: Urine 4412 790 7419 Other: Voiding Method Urinal Urinal Urinal - Exam Physical Exam: Revealed a 69-year-old white male in no distress. Very pleasant. Head: Atraumatic, normocephalic. HEENT:[Neck is supple.] [No neck masses.] [No thyromegaly.] [No JVD.] PERRLA, EOMI, no icterus. Chest: [Diminished breath sounds and dullness at the bases especially at the right base. No rhonchi and no wheezes. Cardiac Exam: [Normal S1 and S2, no S3 gallop, no murmur.] Abdomen: [Soft, nontender, no megaly, no rebound, no guarding, normal bowel sounds.] Extremities: [No clubbing, no edema, no cyanosis.] Neurological Exam: [No focal neurologic deficit.] Alert oriented 3. Psychiatric: Normal mood affect and normal mental status examination. Lymphatics: No lymphadenopathy. Skin: No rashes - Labs CBC & Chem 7: 07/23/19 04:12 07/23/19 04:12 Labs: Abnormal Lab Results - Last 24 Hours (Table) 07/22/19 07/23/19 07/23/19 Range/Units 20:11 04:12 04:12 RBC 3.42 L (4.30-5.90) m/uL Hgb 9.3 L (13.0-17.5) gm/dL Hct 31.0 L (39.0-53.0) % MCHC 30.1 L (31.0-37.0) g/dL RDW 15.6 H (11.5-15.5) % APTT 120.3 H* (22.0-30.0) sec BUN 7 L (9-20) mg/dL Total Protein 6.1 L (6.3-8.2) g/dL Albumin 3.3 L (3.5-5.0) g/dL 07/23/19 Range/Units 04:12 RBC (4.30-5.90) m/uL Hgb (13.0-17.5) gm/dL Hct (39.0-53.0) % MCHC (31.0-37.0) g/dL RDW (11.5-15.5) % APTT 54.9 H (22.0-30.0) sec BUN (9-20) mg/dL Total Protein (6.3-8.2) g/dL Albumin (3.5-5.0) g/dL Assessment and Plan Assessment: #1 acute non-ST segment elevation myocardial infarction #2 Ischemic cardiomyopathy with severe global hypokinesia and ejection fraction 25-30%. #3 Acute anemia of unclear etiology. Presenting hemoglobin 6.2. Status post 2 units of packed red blood cells. GI workup is pending, patient had abnormal CT of the abdomen and pelvis as noted above. #4 Peripheral vascular disease with disabling claudication recent placement to the right lower extremity on 06/02/2019. Maintained on Lipitor, Plavix and aspirin. #5 Chronic and ongoing tobacco dependence of greater than 50 years. #6 Hyperlipidemia. #7 COPD, currently inactive and stable. #8 History of pancreatitis. #9 History of alcoholism. #10 acute systolic congestive heart failure secondary to ischemic cardiomyopathy and LV dysfunction. #11 status post EGD scheduled to undergo sigmoidoscopy in a.m. Recommendation: Continue to monitor in the ICU. Continue heparin as long as the patient is not experiencing any active GI bleeding. no need for thoracentesis responding well to diuretics Continue bronchodilators. Continue GI and DVT prophylaxis. We will continue to monitor in the ICU , Patient is scheduled for sigmoidoscopy in a.m., and depending on the sigmoidoscopy findings, patient may eventually require cardiac catheterization. We'll continue to follow. Time with Patient: Less than 30
[2019-07-23] MEDS: SODIUM CHLORIDE 0.9% 1,000 ML IV SCH (17:28)
--- NOTE | 2019-07-23 19:18 | P.PN ---
Progress Note - Text Progress Note Date: 07/23/19 Interval history: This is a pleasant [address] Bass. Patient called his regular checkup for a physical with his family doctor. Had been complaining of feeling tired for some time. For last 2 weeks patient had been getting a pressure across the chest pressure with exertion. Some shortness of breath. No radiation. Minimal dizziness lightheadedness. Just tired and rundown. Doctor's office called him to quit up to the ER as his hemoglobin was found to be 6.6 patient's ordered unit of blood last night. Later on patient is having more chest pain upon arriving on the floor. Blood pressures running a bit on the lower side. Cardiology was called. Nurse called and I ordered another unit of blood. Cardiology was consulted from the ER. Patient's said his cardiac symptoms have been getting worse in the last 2 weeks. Especially chest pressure. Patient does not know if he's been having black stools. No abdominal pain. Patient admitted with acute non-ST elevation myocardial infarction, severe symptomatic anemia, COPD exacerbation, acute CHF exacerbation EF 25-30%. Today-ICU. Underwent EGD today. Unremarkable. Will undergo a limited sigmoidoscopy tomorrow. Breathing stable. Tolerating a diet. Sitting up. Review of systems: Was done for constitutional, cardiovascular, GI, pulmonary. relevant finding as above Active Medications Acetaminophen (Tylenol Tab) 650 mg PO Q6HR PRN PRN Reason: Mild Pain or Fever > 100.5 Last Admin: 07/20/19 12:57 Dose: 650 mg Documented by: Aspirin (Aspirin) 81 mg PO DAILY [facility] Last Admin: 07/23/19 10:43 Dose: 81 mg Documented by: Atorvastatin Calcium (Lipitor) 40 mg PO DAILY [facility] Last Admin: 07/23/19 10:43 Dose: 40 mg Documented by: Bacitracin (Bacitracin Oint) 1 applic TOPICAL BID [facility] Bacitracin (Bacitracin Oint) 1 each TOPICAL BID [facility] Stop: 07/23/19 23:00 Clopidogrel Bisulfate (Plavix) 75 mg PO DAILY [facility] Last Admin: 07/23/19 10:43 Dose: 75 mg Documented by: Furosemide (Lasix) 20 mg IV Q12H [facility] Last Admin: 07/23/19 17:29 Dose: 20 mg Documented by: Heparin Sodium (Porcine) (Heparin) 2,340 unit IV PER PROTOCOL PRN; Protocol PRN Reason: Low PTT Hydromorphone HCl (Dilaudid) 0.5 mg IVP Q4HR PRN PRN Reason: Pain Last Admin: 07/20/19 21:36 Dose: 0.5 mg Documented by: Sodium Chloride (Saline 0.9%) 1,000 mls @ 25 mls/hr IV .Q24H [facility] Last Admin: 07/23/19 17:28 Dose: 25 mls/hr Documented by: Heparin Sodium/Sodium Chloride (25,000 unit/ Sodium Chloride) 250 mls @ 5.628 mls/hr IV .Q24H [facility]DA; Protocol Last Titration: 07/23/19 10:27 Dose: 20 units/kg/hr, 9.38 mls/hr Documented by: Ferric Sodium Gluconate 125 mg (/ Sodium Chloride) 110 mls @ 100 mls/hr IVPB DAILY [facility] Stop: 07/25/19 10:05 Last Admin: 07/23/19 08:25 Dose: 100 mls/hr Documented by: Cefazolin Sodium 1,000 mg/ (Sodium Chloride) 50 mls @ 100 mls/hr IVPB Q8HR [facility] Losartan Potassium (Cozaar) 25 mg PO 2100 [facility] Last Admin: 07/22/19 22:28 Dose: 25 mg Documented by: Metoprolol Tartrate (Lopressor) 50 mg PO TID [facility] Last Admin: 07/23/19 17:29 Dose: Not Given Documented by: Naloxone HCl (Narcan) 0.2 mg IV Q2M PRN PRN Reason: Opioid Reversal Nitroglycerin (Nitrostat) 0.4 mg SUBLINGUAL ONCE PRN PRN Reason: Chest Pain Last Admin: 07/19/19 21:48 Dose: 0.4 mg Documented by: Nitroglycerin (Nitro-Bid Oint) 0.5 inch TOPICAL Q6HR [facility] Last Admin: 07/23/19 17:29 Dose: 0.5 inch Documented by: Ondansetron HCl (Zofran) 4 mg IVP Q8HR PRN PRN Reason: Nausea And Vomiting Last Admin: 07/20/19 23:57 Dose: 4 mg Documented by: Physical examination: VITAL SIGNS: 97.5, 73, 22, 101/62, 97% room air GENERAL: Sitting up in bed, awake EYES: Pupils equal. Conjunctiva pale. HEENT: External appearance of nose and ears normal, oral cavity grossly normal. NECK: JVD not raised; masses not palpable. HEART: First and second heart sounds are normal; no edema. LUNGS: Respiratory rate increased; diminished breath sounds. ABDOMEN: Soft, nontender, liver spleen not palpable, no masses palpable. PSYCH: Alert and oriented x3; mood and affect normal. INVESTIGATIONS, reviewed in the clinical context: White count 7.7 hemoglobin 9.3 potassium 3.7 creatinine 0.84 Admission testing: Troponin 0.036, 5.5, 20.5 EKG tracing-diffuse ST segment depression from V2 through V6 2-D echo-severe global hypokinesia. EF 25-30%, severe mitral regurgitation, moderate tricuspid regurgitation, moderate pulmonary hypertension Chest x-ray film high. In personally reviewed by me-hyperinflation CT of the chest abdomen pelvis-moderate bilateral pleural effusion right greater than left. Compressive atelectasis. Bilateral apical pleural parenchymal scarring. Hepatic parenchyma is diffusely hypoactive admitted. Pancreatic calcification. Assessment: -Acute non-ST elevation myocardial infarction, with a contribution from severe anemia -Severe symptomatic anemia, unclear at this point if it is a GI bleed -COPD in a current smoker -Chronic nicotine dependence patient cigarette smoker -Acute congestive heart failure exacerbation from systolic dysfunction EF 25-30% -Severe mitral regurgitation, moderate tricuspid regurgitation, nontraumatic -Moderate secondary pulmonary hypertension from COPD and possibly CHF -Area of narrowing in the colon. To rule out malignancy. Plan: Doing better. Had EGD today. Unremarkable. Due to have limited sigmoidoscopy tomorrow. Discussed with Dr. Ghosh. Stable to be moved out to the cardiology floor. Out of the ICU.
--- NOTE | 2019-07-23 20:18 | CONS ---
CONSULTATION This gentleman came in with an acute myocardial infarction in the setting of anemia with hemoglobin of 6.2. He was therefore treated conservatively. No intervention was performed. Hemoglobin has been stable. I spoke to the laborer syrup machine, Dr. Mercado and also the anesthesiologist Dr. Arellano and requested them to perform an upper endoscopy today. If he can have a sigmoidoscopy also it will be useful since there is a rectosigmoid thickening as well. Pancreatic abnormality seen on the CT scan may be a chronic finding with a history of alcoholism. Once these are performed, I will consider coronary angiography. Patient is a smoker, COPD, has significant peripheral arterial disease. I will perform cardiac cath from right radial approach after rectosigmoidoscopy is performed by Dr. Mercado. The patient's prognosis is guarded. He has significant LV dysfunction and has multiple comorbid conditions. Vital signs are stable, blood pressure is about 118/70, pulse rate is 67 per minute. JVD 1 cm. No carotid bruit. S1/S2 heard normally. Short systolic murmur noted. Lungs reveal diminished air entry. Abdomen is soft. Lower extremities reveal diminished pulses. Central nervous system grossly no focal deficits. Apparently he had an endoscopy today which was upper endoscopy revealed mild gastritis and some hiatal hernia. Duodenal biopsies were taken. No active site of bleeding. He is going to have a sigmoidoscopy tomorrow and I will perform cardiac cath on Wednesday. I discussed this with the patient at length. JOSEL / AMARILYSN: [id number] /
[2019-07-23] MEDS: LOSARTAN 25 MG TAB PO SCH (20:25)
[2019-07-23] MEDS ORDERED: BACITRACIN OINT 1 EACH PACKET TOPICAL SCH (21:00)
[2019-07-24] MEDS: NITROGLYCERIN OINT 1 INCH/GM PACKET TOPICAL SCH ×5 (01:37→23:07)
[2019-07-24 06:00] LABS: Basophils # (A) 0.1 k/uL (0-0.2); Basophils % (A) 1 %; Eosinophils # (A) 0.2 k/uL (0-0.7); Eosinophils % (A) 2 %; HCT 30.5 % (39.0-53.0); HGB 9.6 gm/dL (13.0-17.5); Hypochromasia Marked; Lymphocytes # (A) 1.5 k/uL (1.0-4.8); Lymphocytes % (A) 18 %; MCH 28.5 pg (25.0-35.0); MCHC 31.4 g/dL (31.0-37.0); MCV 90.8 fL (80.0-100.0); Mean Platelet Volume 6.3; Monocytes # (A) 0.7 k/uL (0-1.0); Monocytes % (A) 9 %; Neutrophils # (A) 5.3 k/uL (1.3-7.7); Neutrophils % (A) 66 %; Platelet Count 376 k/uL (150-450); Poikilocytosis Slight; RBC 3.35 m/uL (4.30-5.90); RDW 15.5 % (11.5-15.5)
[2019-07-24] MEDS: LISINOPRIL 5 MG TAB PO SCH (06:05)
[2019-07-24 06:15] LABS: African American GFR (CKD) >90 (>60 ml/min/1.73 sqM); Anion Gap 6 mmol/L; Blood Urea Nitrogen 14 mg/dL (9-20); Calcium 8.8 mg/dL (8.4-10.2); Carbon Dioxide 27 mmol/L (22-30); Chloride 104 mmol/L (98-107); Glucose 89 mg/dL (74-99); Potassium 3.6 mmol/L (3.5-5.1); Sodium 137 mmol/L (137-145)
[2019-07-24] MEDS: FUROSEMIDE 10 MG/ML 2 ML VIAL IV SCH ×2 (06:15→17:02)
[2019-07-24] MEDS: METOPROLOL TARTRATE 50 MG TAB PO SCH ×3 (08:48→21:00)
[2019-07-24] MEDS ORDERED: ASPIRIN 325 MG TAB PO STA (08:55)
[2019-07-24] MEDS ORDERED: NITROGLYCERIN SL TABS 0.4 MG TAB SUBLINGUAL PRN (08:55)
[2019-07-24] MEDS ORDERED: ALPRAZolam 0.25 MG TAB PO PRN (08:55)
[2019-07-24] MEDS ORDERED: SODIUM CHLORIDE 0.9% 1,000 ML in EMPTY BAG 1 BAG IV ONE (08:55)
[2019-07-24] MEDS ORDERED: ALPRAZolam 0.5 MG TAB PO PRN (08:55)
[2019-07-24 09:56] LABS: Methylmalonic Acid 0.24 umol/L (<0.40)
[2019-07-24] MEDS ORDERED: LIDOCAINE 1% INJ 10MG/ML (20 ML MDV) ONE (11:00)
[2019-07-24] MEDS ORDERED: PROPOFOL 10 MG/ML 20 ML VIAL IV ONE (11:00)
[2019-07-24] MEDS ORDERED: ETOMIDATE 2 MG/ML 10 ML VIAL ONE (11:00)
[2019-07-24] MEDS ORDERED: SODIUM CHLORIDE 0.9% 500 ML 500 ML IV ONE ×2 (11:05)
--- NOTE | 2019-07-24 11:57 | P.PCN ---
Date of Procedure: 07/24/19 Description of Procedure: BRIEF HISTORY: 69-year-old male with multiple medical comorbidities presenting with anemia from the outpatient setting as well as chest discomfort. Currently receiving treatment in the ICU. Stool testing for occult blood negative, however iron studies consistent with iron deficiency anemia. Patient denies any signs or symptoms of GI bleeding. No prior endoscopic history reported. Denies any NSAID use and states that he takes Tylenol as needed for pain in the outpatient setting. He was taken for EGD with findings of gastritis but no source of bleeding and decision was made for a flexible sigmoidoscopy for evaluation of the rectosigmoid which appeared thickened on CT imaging. PROCEDURE PERFORMED: Flexible sigmoidoscopy with biopsy. PREOPERATIVE DIAGNOSIS: Iron deficiency anemia. ESTIMATED BLOOD LOSS: Minimal. IV sedation per Anesthesia. PROCEDURE: After informed consent was obtained, the patient, was brought into the endoscopy unit. IV sedation was administered by Anesthesia under continuous monitoring. Digital rectal examination was normal. Initially the Olympus CF-190 flexible video colonoscope was then inserted in the rectum, gradually advanced into the distal descending colon. Careful examination was performed as the scope was gradually being withdrawn. Prep was fair. Mucosa of the rectum, sigmoid and descending colon appeared grossly normal. There were multiple small and large diverticula in the sigmoid colon. 2 pedunculated polyps were also noted in the sigmoid colon one measuring 2 cm approximately 25 cm from the anal verge and one measuring 8 mm approximately 20 cm from the anal verge with the larger polyp biopsied. Retroflexion in the rectum with large internal hemorrhoids noted. The patient tolerated the procedure well. IMPRESSION: No inflammation or mass noted from the rectum to the descending colon. 2 pedunculated sigmoid polyps the larger measuring 2 cm which was biopsied. Moderate sigmoid diverticulosis. RECOMMENDATIONS: Findings of this examination were discussed with the patient in the ICU team. Okay to resume diet. Okay to resume heparin in 2 hours. Patient will likely need full colonoscopy with polypectomy once anticoagulation can safely be held likely in 6-12 months depending on findings from cardiac catheterization. Okay to proceed with catheterization from gastroenterology standpoint. Await pathology from biopsies.
--- NOTE | 2019-07-24 12:00 | P.PN ---
Subjective Progress Note Date: 07/24/19 Principal diagnosis: Anemia This is a very pleasant 69-year-old gentleman who follows with history of hypertension, hyperlipidemia, chronic and ongoing tobacco dependence of greater than 50 years, peripheral vascular disease and is status post stent placement to the right leg in May 2019. He's been on Plavix, aspirin, Lipitor. Denies any home oxygen, no inhalers, no nebulized treatments. He had recently been having episodes of chest pain and shortness of breath. He was seen by his PCP yesterday and found to have a hemoglobin of 6.2. He is transported here via EMS. He was having significant chest pain and had acute ST abnormalities in the inferior and anterolateral leon. The patient had been seen initially by Dr. Diane Shahid, who reviewed the patient's EKG and noted that the hemoglobin was around 6 therefore recommended no intervention even though there was suspicion of a non-ST elevation WA. He suggested blood transfusion with beta blockers and nitrates at that time, the morning of his evaluation he continued to have further chest pain, placed him on a nitroglycerin drip, stated to the patient at that time if the hemoglobin remains stable he would consider doing a cardiac catheterization. An echocardiogram with Doppler study was performed which rev ealed an ejection fraction of 25-30%, severe global hypokinesia, LA is severely dilated, severe mitral regurgitation and moderate tricuspid regurgitation with moderate pulmonary hypertension noted. Patient underwent an endoscopy which revealed mild gastritis and 7 hiatal hernia. Duodenal biopsies were taken. No active sign of bleeding. He is scheduled today to undergo sigmoidoscopy with biopsy. Blood pressure 114/60 with a heart rate in the 80s. White blood cell count 8.0, hemoglobin 9.6, platelet count 376. Sodium 137, potassium 3.6, BUN 14 and creatinine 0.8. Objective - Vital Signs Vital signs: Vital Signs Temp 98.3 F 07/24/19 08:00 Pulse 80 07/24/19 08:00 Resp 18 07/24/19 08:00 BP 114/60 07/24/19 08:00 Pulse Ox 97 07/24/19 08:00 Intake & Output 07/23/19 07/24/19 07/24/19 18:59 06:59 18:59 Intake Total 906.140 250 110 Output Total 2450 950 Balance -1543.860 -700 110 Weight 47.8 kg Intake: IV 320 200 110 Invasive Line 3 10 10 Sodium Chloride 0.9% 1, 220 190 000 ml @ 25 mls/hr IV . Q24H [facility] Rx#:[id number] Sodium Ferric Gluconat- 100 Sucrose 125 mg In Sodium Chloride 0.9% 100 ml @ 100 mls/hr IVPB DAILY [facility] Rx#:[id number] Intake, IV Titration 86.140 50 Amount Heparin Sod,Pork in 0.45% 86.140 NaCl 25,000 unit In 0.45 % NaCl 1 250ml.bag @ 12 UNITS/KG/HR 5.628 mls/hr IV .Q24H [facility] Rx#: [id number] ceFAZolin 1,000 mg In 50 Sodium Chloride 0.9% 50 ml @ 100 mls/hr IVPB Q8HR [facility] Rx#:[id number] Oral 500 0 Output: Urine 2450 950 Other: Voiding Method Urinal Urinal Urinal - Exam GENERAL EXAM: Alert, in mild distress with chest discomfort. On 2 L nasal cannula. HEAD: Normocephalic. EYES: Normal reaction of pupils, equal size. NOSE: Clear with pink turbinates. THROAT: No erythema or exudates. NECK: No masses, no JVD. CHEST: No chest wall deformity. LUNGS: Equal air entry with no crackles, wheeze, rhonchi or dullness. CVS: S1 and S2 systolic murmur is heard , regular rhythm. ABDOMEN: No hepatosplenomegaly, normal bowel sounds, no guarding or rigidity. SPINE: No scoliosis or deformity SKIN: No rashes CENTRAL NERVOUS SYSTEM: No focal deficits, tone is normal in all 4 extremities. EXTREMITIES: There is no peripheral edema. No clubbing, no cyanosis. Peripheral pulses are intact. - Labs CBC & Chem 7: 07/24/19 05:14 07/24/19 05:14 Labs: Abnormal Lab Results - Last 24 Hours (Table) 07/23/19 07/24/19 07/24/19 Range/Units 17:15 05:14 05:14 RBC 3.35 L (4.30-5.90) m/uL Hgb 9.6 L (13.0-17.5) gm/dL Hct 30.5 L (39.0-53.0) % APTT 55.6 H 54.5 H (22.0-30.0) sec Assessment and Plan Plan: Impression: #1 non-ST elevation WA with peak troponin of 20. #2 Ischemic cardiomyopathy with severe global hypokinesia and ejection fraction 25-30%. Severe mitral regurgitation. #3 Acute anemia of unclear etiology. Presenting hemoglobin 6.2. Status post 2 units of packed red blood cells. Current hemoglobin 9.6. #4 Peripheral vascular disease with disabling claudication recent placement to the right lower extremity on 06/02/2019. #5 Chronic and ongoing tobacco dependence of greater than 50 years. #6 Hyperlipidemia. #7 COPD, currently inactive and stable. #8 History of pancreatitis. #9 History of alcoholism. Plan: Patient is scheduled today to undergo sigmoidoscopy with biopsy. We will schedule him for cardiac catheterization tomorrow with Dr. Diane Shahid, the risks and benefits were explained to the patient in detail and he is willing to proceed. DNP note has been reviewed, I agree with a documented findings and plan of care. Patient was seen and examined.
[2019-07-24] MEDS: CLOPIDOGREL 75 MG TAB PO SCH (12:31)
[2019-07-24] MEDS: ATORVASTATIN 80 MG TAB PO STA (12:31)
[2019-07-24] MEDS: SODIUM FERRIC GLUCONAT-SUCROSE 125 MG in SODIUM CHLORIDE 0.9% 100 ML IVPB SCH (13:56)
[2019-07-24] MEDS: BACITRACIN 500 UNIT/GM OINT 28.4 GM TUBE TOPICAL SCH ×2 (13:56→21:00)
[2019-07-24] MEDS: SODIUM CHLORIDE 0.9% 1,000 ML IV SCH ×2 (17:45→18:30)
[2019-07-24] MEDS: HEPARIN SOD,PORK IN 0.45% NACL 25,000 UNIT in 0.45% NACL 1 250ML.BAG IV SCH (18:28)
--- NOTE | 2019-07-24 19:48 | P.PN ---
Progress Note - Text Progress Note Date: 07/24/19 Interval history: This is a pleasant [address] Bass. Patient called his regular checkup for a physical with his family doctor. Had been complaining of feeling tired for some time. For last 2 weeks patient had been getting a pressure across the chest pressure with exertion. Some shortness of breath. No radiation. Minimal dizziness lightheadedness. Just tired and rundown. Doctor's office called him to quit up to the ER as his hemoglobin was found to be 6.6 patient's ordered unit of blood last night. Later on patient is having more chest pain upon arriving on the floor. Blood pressures running a bit on the lower side. Cardiology was called. Nurse called and I ordered another unit of blood. Cardiology was consulted from the ER. Patient's said his cardiac symptoms have been getting worse in the last 2 weeks. Especially chest pressure. Patient does not know if he's been having black stools. No abdominal pain. Patient admitted with acute non-ST elevation myocardial infarction, severe symptomatic anemia, COPD exacerbation, acute CHF exacerbation EF 25-30%. EGD was unremarkable. Today-sigmoidoscopy up to the descending colon negative. 2 polyps were found. Breathing stable. Cardiology is planning for a cardiac cath tomorrow.. Review of systems: Was done for constitutional, cardiovascular, GI, pulmonary. relevant finding as above Active Medications Acetaminophen (Tylenol Tab) 650 mg PO Q6HR PRN PRN Reason: Mild Pain or Fever > 100.5 Last Admin: 07/20/19 12:57 Dose: 650 mg Documented by: Alprazolam (Xanax) 0.25 mg PO Q6HR PRN PRN Reason: Mild Anxiety Alprazolam (Xanax) 0.5 mg PO Q6HR PRN PRN Reason: Moderate Anxiety Aspirin (Aspirin) 81 mg PO DAILY [facility] [place] Atorvastatin Calcium (Lipitor) 40 mg PO DAILY [facility] [place] Bacitracin (Bacitracin Oint) 1 applic TOPICAL BID [facility] [place] Last Admin: 07/24/19 13:56 Dose: 1 applic Documented by: Clopidogrel Bisulfate (Plavix) 75 mg PO DAILY [facility] [place] Last Admin: 07/24/19 12:31 Dose: 75 mg Documented by: Furosemide (Lasix) 20 mg IV Q12H [facility] [place] Last Admin: 07/24/19 17:02 Dose: 20 mg Documented by: Heparin Sodium (Porcine) (Heparin) 2,340 unit IV PER PROTOCOL PRN; Protocol PRN Reason: Low PTT Hydromorphone HCl (Dilaudid) 0.5 mg IVP Q4HR PRN PRN Reason: Pain Last Admin: 07/20/19 21:36 Dose: 0.5 mg Documented by: Sodium Chloride (Saline 0.9%) 1,000 mls @ 25 mls/hr IV .Q24H [facility] [place] Last Admin: 07/24/19 18:30 Dose: 25 mls/hr Documented by: Heparin Sodium/Sodium Chloride (25,000 unit/ Sodium Chloride) 250 mls @ 5.628 mls/hr IV .Q24H [facility]; Protocol Last Admin: 07/24/19 18:28 Dose: 20 units/kg/hr, 9.38 mls/hr Documented by: Ferric Sodium Gluconate 125 mg (/ Sodium Chloride) 110 mls @ 100 mls/hr IVPB DAILY [facility] Stop: 07/25/19 10:05 Last Admin: 07/24/19 13:56 Dose: 100 mls/hr Documented by: Cefazolin Sodium 1,000 mg/ (Sodium Chloride) 50 mls @ 100 mls/hr IVPB Q8HR [facility] [place] Last Admin: 07/24/19 18:37 Dose: 100 mls/hr Documented by: Sodium Chloride 1,000 ml/ IV (Solution) 1,000 mls @ 47.8 mls/hr IV .[id number] ONE Stop: 07/25/19 05:50 Last Admin: 07/24/19 17:43 Dose: Not Given Documented by: Losartan Potassium (Cozaar) 25 mg PO 2100 [facility] Last Admin: 07/23/19 20:25 Dose: 25 mg Documented by: Metoprolol Tartrate (Lopressor) 50 mg PO TID [facility] Last Admin: 07/24/19 17:03 Dose: 50 mg Documented by: Naloxone HCl (Narcan) 0.2 mg IV Q2M PRN PRN Reason: Opioid Reversal Nitroglycerin (Nitrostat) 0.4 mg SUBLINGUAL ONCE PRN PRN Reason: Chest Pain Last Admin: 07/19/19 21:48 Dose: 0.4 mg Documented by: Nitroglycerin (Nitro-Bid Oint) 0.5 inch TOPICAL Q6HR [facility] Last Admin: 07/24/19 17:02 Dose: 0.5 inch Documented by: Ondansetron HCl (Zofran) 4 mg IVP Q8HR PRN PRN Reason: Nausea And Vomiting Last Admin: 07/20/19 23:57 Dose: 4 mg Documented by: Physical examination: VITAL SIGNS: 98.1, 80, 18, 110/54, 97% room air GENERAL: Sitting up, comfortable EYES: Pupils equal. Conjunctiva pale. HEENT: External appearance of nose and ears normal, oral cavity grossly normal. NECK: JVD not raised; masses not palpable. HEART: First and second heart sounds are normal; no edema. LUNGS: Respiratory rate increased; diminished breath sounds. ABDOMEN: Soft, nontender, liver spleen not palpable, no masses palpable. PSYCH: Alert and oriented x3; mood and affect normal. INVESTIGATIONS, reviewed in the clinical context: White count 18, 9.6 potassium 3.6 creatinine 0.87 Admission testing: Troponin 0.036, 5.5, 20.5 EKG tracing-diffuse ST segment depression from V2 through V6 2-D echo-severe global hypokinesia. EF 25-30%, severe mitral regurgitation, moderate tricuspid regurgitation, moderate pulmonary hypertension Chest x-ray film high. In personally reviewed by me-hyperinflation CT of the chest abdomen pelvis-moderate bilateral pleural effusion right greater than left. Compressive atelectasis. Bilateral apical pleural parenchymal scarring. Hepatic parenchyma is diffusely hypoactive admitted. Pancreatic calcification. Assessment: -Acute non-ST elevation myocardial infarction, with a contribution from severe anemia -Severe symptomatic anemia, unclear at this point if it is a GI bleed. EGD and limited colonoscopy both negative. -COPD in a current smoker -Chronic nicotine dependence patient cigarette smoker -Acute congestive heart failure exacerbation from systolic dysfunction EF 25- 30%, clinically improved -Severe mitral regurgitation, moderate tricuspid regurgitation, nontraumatic -Moderate secondary pulmonary hypertension from COPD and possibly CHF -Sigmoid diverticulosis and colonic polyp. Plan: Patient due for a cardiac catheterization tomorrow. Other medications to continue. Breathing is improved. No obvious evidence of malignancy till now. If any further drop in hemoglobin may need a small bowel capsule study. We will have Dr. Frank given his opinion from a hematology standpoint. Discussed with the patient..
[2019-07-24] MEDS: LOSARTAN 25 MG TAB PO SCH (21:00)
[2019-07-25] MEDS: FUROSEMIDE 10 MG/ML 2 ML VIAL IV SCH ×2 (06:21→17:49)
[2019-07-25] MEDS: NITROGLYCERIN OINT 1 INCH/GM PACKET TOPICAL SCH (06:21)
[2019-07-25] MEDS: ATORVASTATIN 40 MG TAB PO SCH (07:06)
[2019-07-25] MEDS: METOPROLOL TARTRATE 50 MG TAB PO SCH ×3 (07:06→21:37)
[2019-07-25] MEDS: BACITRACIN 500 UNIT/GM OINT 28.4 GM TUBE TOPICAL SCH ×2 (07:07→21:37)
[2019-07-25] MEDS: ASPIRIN 81 MG PO SCH (07:07)
[2019-07-25] MEDS: CLOPIDOGREL 75 MG TAB PO SCH (07:07)
[2019-07-25] MEDS: SODIUM FERRIC GLUCONAT-SUCROSE 125 MG in SODIUM CHLORIDE 0.9% 100 ML IVPB SCH (08:58)
[2019-07-25] MEDS ORDERED: IV FLUID CONTINUATION 850 ML IV ONE (09:20)
[2019-07-25] MEDS ORDERED: VERAPAMIL 2.5 MG/ML 2 ML AMP ONE (09:31)
[2019-07-25] MEDS ORDERED: LIDOCAINE 1% INJ 10MG/ML (20 ML MDV) ONE (09:32)
[2019-07-25] MEDS ORDERED: HEPARIN SODIUM 1,000 UN/ML (10ML VL) ONE (09:32)
[2019-07-25] MEDS ORDERED: MIDAZOLAM PF (FBP) 2 MG/2 ML VIAL IV ONE (09:41)
[2019-07-25] MEDS ORDERED: SODIUM CHLORIDE 0.9% 250 ML IV ONE (09:42)
[2019-07-25] MEDS ORDERED: LIDOCAINE 1% INJ 10MG/ML (20 ML MDV) SQ ONE (09:42)
[2019-07-25] MEDS: VERAPAMIL SYRINGE (5 MG/10 ML) INTRAARTER ONE ×2 (09:45→10:50)
[2019-07-25] MEDS ORDERED: BIVALIRUDIN 250 MG in SODIUM CHLORIDE 0.9% 50 ML IV ONE (10:01)
[2019-07-25] MEDS ORDERED: BIVALIRUDIN BOLUS 250 MG/50 ML IV ONE (10:01)
[2019-07-25] MEDS ORDERED: CLOPIDOGREL 75 MG TAB ONE (10:11)
[2019-07-25] MEDS ORDERED: IOPAMIDOL-370 125ML BTL INJ ONE ×2 (10:21→10:49)
[2019-07-25] MEDS: NITROGLYCERIN 1000MCG/10ML SYRINGE INTRACORON ONE ×2 (10:45→10:49)
[2019-07-25] MEDS ORDERED: NITROGLYCERIN-D5W PMX 50 MG in DEXTROSE/WATER 1 250ML.BAG IV SCH (11:30)
--- NOTE | 2019-07-25 11:51 | CC ---
CARDIAC CATHETERIZATION REPORT DATE OF SERVICE: 07/25/2019 PROCEDURES: 1. Left heart catheterization and coronary angiography. 2. PTCA of mid LAD and mid RCA, both of which were unsuccessful. PERFORMED BY: Dr. Gaudencio Shahid. Moderate conscious sedation time was 73 minutes. Patient was administered Versed. His oxygen saturation, hemodynamics and EKG were monitored closely. CLINICAL INFORMATION: Mr. Randell Finley is a malnourished 69-year-old gentleman who weighs about 45 kg, has severe peripheral arterial disease, history of smoking, COPD, and past history of alcoholism. He came into the hospital with chest pain and precordial ST depression. He also had a troponin of about 6.2. We made a decision to treat him conservatively given his low hemoglobin. Six weeks ago, his hemoglobin was 11.8. However after his infarction, upper endoscopy did not reveal any source of bleeding. There was only mild gastritis in the stomach. The sigmoidoscopy did not reveal any significant lesions. CAT scan revealed some dilatation of the head of the pancreas, which seemed to be with a history of prior pancreatitis. He was advised cardiac cath with the understanding that he will be high-risk procedure. PROCEDURE NOTE: Under local anesthesia and strict aseptic precautions, a 6-Jordanian introducer was placed in the right radial artery. Using a JR4 and JL3.5 catheters I performed coronary angiography and the same right catheter was used to check LV pressures. LV gram was not performed. Following this, I performed a PCI of both RCA and LAD both of which were unsuccessful. CARDIAC CATHETERIZATION FINDINGS: The left ventricular end-diastolic pressure was 16 mmHg. There was no gradient across the aortic valve. CORONARY ANGIOGRAPHY FINDINGS: RIGHT CORONARY ARTERY: This is a very dominant vessel that is heavily calcified in its entire length, especially in the proximal 1/3. There is a 99% stenosis in the proximal 1/3 and this may be a recanalized vessel. Distally the PDA and PLV are free of significant disease and there is extensive calcification of the RCA. LEFT MAIN CORONARY ARTERY: Short, patent, disease-free vessel that bifurcates into LAD and circumflex. There is moderate calcification. LEFT ANTERIOR DESCENDING CORONARY ARTERY: This vessel is heavily calcified and there is a significant calcified lesion in the entire proximal half of the vessel. There is a diagonal branch that is diffusely diseased, appears to be graftable with a mid lesion of about 80%. Mid LAD after the diagonal has a 90% stenosis within a calcified area just before the diagonal also there is calcification. The caliber of the vessel then improves and it runs all the way to the apex. There is extensive calcification noted. LEFT POSTERIOR CIRCUMFLEX CORONARY ARTERY: This is a technically nondominant vessel, gives off an obtuse marginal that runs laterally had about 55% blockage and that divides into 2 branches, supplies a fair amount of myocardium. Continuation of circumflex in the AV groove has a subtotal lesion and there is a left atrial circumflex branch. Beyond the subtotal lesion, the caliber of the vessels are small and is non- graftable. The circumflex is a potentially graftable vessel. FINAL IMPRESSION: This patient has triple-vessel heavily calcified disease. I explained to the patient prior to the procedure, the possibility of bypass surgery and he was very reluctant. I explained to him that I will try percutaneously and if unsuccessful, he will go for bypass surgery. With this understanding, I proceeded to perform PCI. PROCEDURE DETAILS OF PCI: Initially I used a KRH 0 4.0 catheter with this I was able to cannulate the RCA. I used a run-through wire and I was able to get up to the mid RCA where there appeared to be a recanalized vessel with a chronic total occlusion. I could not cross the vessel. I used a cross sail catheter. With this support also I could not cross then I gave up and turned my attention to the LAD. I used a 3.5 left Tete type guide catheter to cannulate the left coronary artery. I was able to cross the tight lesion in the LAD with a Whisper wire. I could not advance any balloon. I used a philip wire which was a run-through wire and over the run-through wire also I could not advance 2.0 NC Trek balloon. Eventually a 1.5 balloon was used and I gave 2 inflations, but there was no improvement. It is a heavily calcified vessel. I then made the decision to abandon the procedure and proceed with bypass surgery after waiting a few days for the Plavix to clear the system. I Discussed my thoughts in detail with the patient, called Dr. Archibald. The sheath was then taken out and TR band applied as per protocol with good saturation of the fingers of the right hand. The patient was pain free, hemodynamically stable. EKG was baseline without any changes. I recommended that he will go to the ICU and we will leave him on 10 mcg nitro drip, same medications, hold Plavix and Dr. Archibald will see the patient today. NAHUM / MELLISSA: [id number] /
--- NOTE | 2019-07-25 12:42 | PN ---
PROGRESS NOTE Mr. Finley is a gentleman who came in with anemia, hemoglobin of 6.2, had what seems to be inferior posterior KS. After that he had endoscopy which did not reveal any bleeding and this was EGD and sigmoidoscopy which was also nonrevealing. He is advised cardiac cath with possible revascularization. Patient wishes percutaneous approach. He weighs 45 kg and has recent anemia with hemoglobin requiring transfusion and is a high risk. He also has peripheral artery disease. I am recommending coronary angiography. Rationale, risks, benefits, options were explained. He understands all details and wishes to proceed with the procedure. MMODL / IJN: [id number] /
[2019-07-25] MEDS ORDERED: MD COMMUNICATION TO PHARMACY 1 EACH MISC PO ONE (13:52)
--- NOTE | 2019-07-25 15:09 | US ---
EXAMINATION TYPE: US carotid duplex BILAT DATE OF EXAM: 07/25/2019 COMPARISON: NONE CLINICAL HISTORY: Pre-Op Cardiac Surgery,Ankle Brachial Index (BRODIE) . pre op EXAM MEASUREMENTS: RIGHT: Peak Systolic Velocity (PSV) cm/sec ----- Right CCA: 72.1 ----- Right ICA: 146.3 ----- Right ECA: 299.4 ICA/CCA ratio: 2.0 RIGHT: End Diastole cm/sec ----- Right CCA: 9.2 ----- Right ICA: 15.5 ----- Right ECA: 8.4 LEFT: Peak Systolic Velocity (PSV) cm/sec ----- Left CCA: 96.0 ----- Left ICA: 126.4 ----- Left ECA: 127.2 ICA/CCA ratio: 1.3 LEFT: End Diastole cm/sec ----- Left CCA: 0.0 ----- Left ICA: 25.4 ----- Left ECA: 6.9 VERTEBRALS (direction of flow): Right Vertebral: Antegrade Left Vertebral: Antegrade Rhythm: Normal Heterogeneous plaque bilaterally with increased velocities noted within right ICA and increased veloc ities in right ECA IMPRESSION: 1. Stenosis of 50-69% within the right internal carotid artery and external carotid artery. CTA neck could more accurately assess the degree of stenosis. 2. Values approaching 50-69% stenosis within the left internal carotid artery. Criteria for Assigning % of Stenosis / Diameter reduction (Estimation based on the indirect measurements of the internal carotid artery velocities (ICA PSV). 1. Normal (no stenosis)=ICA PSV < 125 cm/s: ratio < 2.0: ICA EDV<40 cm/s. 2. Less than 50% stenosis=ICA PSV < 125 cm/s: ratio < 2.0: ICA EDV<40 cm/s. 3. 50 to 69% stenosis=ICA PSV of 125 to 230 cm/s: ration 2.0 ? 4.0: ICA EDV 40-100 cm/s. 4. Greater than 70% stenosis to near occlusion= ICA PSV > 230 cm/s: ratio > 4.0: ICA EDV > 100 cm/s. 5. Near occlusion= ICA PSV velocities may be low or undetectable: variable ratio and ICA EDV. 6. Total occlusion=unable to detect flow.
[2019-07-25 15:46] LABS: Anisocytosis Slight; Basophils # (A) 0.1 k/uL (0-0.2); Basophils % (A) 1 %; Eosinophils # (A) 0.1 k/uL (0-0.7); Eosinophils % (A) 1 %; HCT 29.6 % (39.0-53.0); HGB 8.8 gm/dL (13.0-17.5); Hypochromasia Marked; Lymphocytes % (A) 12 %; MCH 28.1 pg (25.0-35.0); MCHC 29.8 g/dL (31.0-37.0); MCV 94.4 fL (80.0-100.0); Mean Platelet Volume 7.5; Monocytes # (A) 0.6 k/uL (0-1.0); Monocytes % (A) 7 %; Neutrophils # (A) 6.3 k/uL (1.3-7.7); Neutrophils % (A) 76 %; Platelet Count 383 k/uL (150-450); Poikilocytosis Slight; RBC 3.14 m/uL (4.30-5.90); RDW 16.1 % (11.5-15.5); WBC 8.3 k/uL (3.8-10.6)
[2019-07-25 15:53] LABS: ALT 15 U/L (21-72); AST 26 U/L (17-59); African American GFR (CKD) >90 (>60 ml/min/1.73 sqM); Albumin 3.5 g/dL (3.5-5.0); Alkaline Phosphatase 74 U/L (38-126); Anion Gap 9 mmol/L; Blood Urea Nitrogen 18 mg/dL (9-20); Carbon Dioxide 26 mmol/L (22-30); Chloride 105 mmol/L (98-107); Cholesterol 94 mg/dL (<200); Glucose 125 mg/dL (74-99); HDL Cholesterol 41 mg/dL (40-60); LDL Cholesterol,Calculated 33 mg/dL (0-99); Potassium 3.8 mmol/L (3.5-5.1); Sodium 140 mmol/L (137-145); Total Bilirubin 0.3 mg/dL (0.2-1.3); Total Protein 6.5 g/dL (6.3-8.2); Triglycerides 99 mg/dL (<150)
[2019-07-25 15:55] LABS: INR 1.1 (<1.2); Prothrombin Time 11.3 sec (9.0-12.0)
--- NOTE | 2019-07-25 16:59 | P.GSCN ---
<Barrett Blum - Last Filed: 07/25/19 16:21> History of Present Illness Consult date: 07/25/19 Reason for Consult: Triple-vessel coronary artery disease, severe mitral valve regurgitation, moder ate tricuspid valve regurgitation. Requesting physician: Ronel Shahid History of present illness: This is a 69-year-old gentleman who is followed by Dr. Seth Bass on an outpatient basis. He has a past medical history significant for chronic obstructive pulmonary disease, hypertension, hyperlipidemia, peripheral vascular disease with history of recent stent placement to his superficial femoral artery in May 2019 and is currently on Plavix, history of chronic ongoing tobacco abuse and history of pancreatitis. The patient reports that he was at his primary care physician's office for a routine physical exam and when he arrived home he started having symptoms of shortness of breath, dizziness and chest pressure which radiated to his jaw. Subsequently he did receive a call from his primary care physician's office telling him that he needed to report to the hospital due to a low hemoglobin of 6.6. EMS was called and the patient was transported to [facility] emergency department. The patient denies any nausea, vomiting, diarrhea, constipation, fever, chills or recent injury. The patient also states that he had about a 5-6 pound weight loss in the last several weeks. On presentation to the emergency department a 12-lead EKG was completed which showed him to have ST elevation in his inferior leads a nd ST depression in his feet lead with a heart rate of 116 BPM. Laboratory results in the emergency department showed him to have a WBC count of 7.4, myoglobin 6.2, hematocrit 19.8, platelets 503, INR 1.0, PTT 20.9, BUN 22, creatinine 1.10, and an elevated troponin of 0.036 with follow-up cervical troponins as high as 20.500. A chest x-ray was also completed which demonstrated no acute process. Subsequently the patient was admitted for further evaluation and treatment recommendations. A 2-D echocardiogram was completed on 07/20/2019 which demonstrated a left ventricular filling pressure which could not be estimated due to his severe mitral valve regurgitation, trace aortic valve regurgitation, severe mitral valve regurgitation, moderate tricuspid valve regurgitation and mild concentric left ventricular hypertrophy with severe global hypokinesia of the left ventricle. Due to the patient's hemoglobin of 6.2 he was also seen by hematology and gastroenterology. On 07/23/2019 the patient underwent an EGD which demonstrated mild gastritis, and a small hiatal hernia. A flexible sigmoidoscopy with biopsy was completed on 07/24/2019 which showed no inflammation or mass in the descending colon, 2 pedunculated sigmoid polyps measuring 2 cm which was biopsied and moderate sigmoid diverticulosis. The polyp pathology of the sigmoid colon polyp showed benign course the polyp. For further cardiac workup the patient underwent a left heart catheterization and coronary angiography today performed by Dr. BALDOMERO Shahid which demonstrated an 80% stenosis to his diagonal coronary artery, a 90% stenosis to his mid left anterior descending coronary artery, a 55% stenosis to his obtuse marginal coronary artery and a 99% stenosis to his proximal right coronary artery. During heart catheterization a PTCA of the mid left anterior descending coronary artery and mid right coronary artery was attempted but was unsuccessful. Due to the patient's coronary artery disease and unsuccessful stenting a consult was placed to Dr. Magrarette Archibald from cardiothoracic surgery for further evaluation and treatment recommendations. Review of Systems A 14 point review of systems was completed and was negative except as mentioned in the HPI. Past Medical History Past Medical History: Chest Pain / Angina, COPD, Hyperlipidemia, Hypertension, Vascular Disorder Additional Past Medical History / Comment(s): extreme rufus leg pain with walking and resting,Hx sinus problems, Headaches, 2007 fell down 25 steps- broke nose and had a concussion, rt lazy eye, history of pancreatitis, History of Any Multi-Drug Resistant Organisms: None Reported Past Surgical History: Hernia Repair Additional Past Surgical History / Comment(s): Bilateral inguinal hernias, tooth extractions, stent in right leg to his superficial femoral artery placed by Dr. Sanchez in May 2019. Past Anesthesia/Blood Transfusion Reactions: No Reported Reaction, Motion Sickness Additional Past Anesthesia/Blood Transfusion Reaction / Comm: no hx blood transfusion Past Psychological History: No Psychological Hx Reported Smoking Status: Current every day smoker Past Alcohol Use History: None Reported Additional Past Alcohol Use History / Comment(s): started smoking age 18, <1ppd. used to be heavy beer drinker till age 32 then a moderate wine drinker until her quit 2012 Past Drug Use History: None Reported - Past Family History Mother Family Medical History: Dementia Father Family Medical History: Congestive Heart Failure (CHF) Medications and Allergies Home Medications Medication Instructions Recorded Confirmed Type Fluticasone Nasal Lowes [Flonase 1 spr EA NOSTRIL DAILY 07/23/16 07/19/19 History Nasal Lowes] Lisinopril [Zestril] 5 mg PO DAILY 05/11/19 07/19/19 History Aspirin 81 mg PO DAILY 05/16/19 07/19/19 History Clopidogrel [Plavix] 75 mg PO DAILY 06/02/19 07/19/19 History Atorvastatin Calcium [Lipitor] 40 mg PO DAILY 07/19/19 07/19/19 History Allergies Allergy/AdvReac Type Severity Reaction Status Date / Time No Known Allergies Allergy Verified 07/19/19 16:45 Surgical - Exam Vital Signs Pulse Ox 100 07/19/19 15:35 - General no distress, no pain, cachectic, chronically ill - Eyes PERRL, normal ocular movement - ENT normal pinna, normal nares, normal mucosa, no hearing loss, no congestion, poor penitentiary - Neck No JVD, no lymphadenopathy. Neck is supple. no masses, no bruits, trachea midline, no venous distension - Respiratory Lungs sounds essentially clear throughout, diminished to his bilateral bases. Respirations are symmetrical and nonlabored. Achieving 1500 mL on his incentive spirometry. - Cardiovascular Regular rhythm and rate. S1 and S2 present, negative for S3, gallop or murmur. Knee-high sequential compression devices in place to his bilateral lower extremity Crow. - Abdomen Abdomen is soft, nontender nondistended. Active bowel sounds present all 4 abdominal quadrants. No guarding or rigidity. No organomegaly appreciated. - Genitourinary Deferred - Rectum Deferred - Integumentary No clubbing or cyanosis present. no rash, no growths, no abnormal pigmentation - Neurologic Cranial nerves II through XII intact, no focal deficits. normal coordination, normal sensation - Musculoskeletal normal gait, normal posture - Psychiatric oriented to time, oriented to person, oriented to place, speech is normal, memory intact Results - Labs 07/25/19 15:00 07/25/19 15:00 Abnormal Lab Results - Last 24 Hours (Table) 07/24/19 07/25/19 07/25/19 Range/Units 20:33 06:03 15:00 RBC 3.14 L (4.30-5.90) m/uL Hgb 8.8 L (13.0-17.5) gm/dL Hct 29.6 L (39.0-53.0) % MCHC 29.8 L (31.0-37.0) g/dL RDW 16.1 H (11.5-15.5) % APTT 68.3 H 37.3 H (22.0-30.0) sec Glucose (74-99) mg/dL ALT (21-72) U/L 07/25/19 Range/Units 15:00 RBC (4.30-5.90) m/uL Hgb (13.0-17.5) gm/dL Hct (39.0-53.0) % MCHC (31.0-37.0) g/dL RDW (11.5-15.5) % APTT (22.0-30.0) sec Glucose 125 H (74-99) mg/dL ALT 15 L (21-72) U/L Diabetes panel 07/25/19 Range/Units 15:00 Sodium 140 (137-145) mmol/L Potassium 3.8 (3.5-5.1) mmol/L Chloride 105 (98-107) mmol/L Carbon Dioxide 26 (22-30) mmol/L BUN 18 (9-20) mg/dL Creatinine 0.76 (0.66-1.25) mg/dL Glucose 125 H (74-99) mg/dL Calcium 9.0 (8.4-10.2) mg/dL AST 26 (17-59) U/L ALT 15 L (21-72) U/L Alkaline Phosphatase 74 (38-126) U/L Total Protein 6.5 (6.3-8.2) g/dL Albumin 3.5 (3.5-5.0) g/dL Triglycerides 99 (<150) mg/dL HDL Cholesterol 41 (40-60) mg/dL Calcium panel 07/25/19 Range/Units 15:00 Calcium 9.0 (8.4-10.2) mg/dL Albumin 3.5 (3.5-5.0) g/dL Pituitary panel 07/25/19 Range/Units 15:00 Sodium 140 (137-145) mmol/L Potassium 3.8 (3.5-5.1) mmol/L Chloride 105 (98-107) mmol/L Carbon Dioxide 26 (22-30) mmol/L BUN 18 (9-20) mg/dL Creatinine 0.76 (0.66-1.25) mg/dL Glucose 125 H (74-99) mg/dL Calcium 9.0 (8.4-10.2) mg/dL Adrenal panel 07/25/19 Range/Units 15:00 Sodium 140 (137-145) mmol/L Potassium 3.8 (3.5-5.1) mmol/L Chloride 105 (98-107) mmol/L Carbon Dioxide 26 (22-30) mmol/L BUN 18 (9-20) mg/dL Creatinine 0.76 (0.66-1.25) mg/dL Glucose 125 H (74-99) mg/dL Calcium 9.0 (8.4-10.2) mg/dL Total Bilirubin 0.3 (0.2-1.3) mg/dL AST 26 (17-59) U/L ALT 15 L (21-72) U/L Alkaline Phosphatase 74 (38-126) U/L Total Protein 6.5 (6.3-8.2) g/dL Albumin 3.5 (3.5-5.0) g/dL - Imaging Chest x-ray: report reviewed, image reviewed CT scan - abdomen: report reviewed, image reviewed CT scan - chest: report reviewed, image reviewed CT scan - pelvis: report reviewed, image reviewed EKG: image reviewed Additional studies: Carotid duplex study results reviewed by Dr. Margarette Archibald. Assessment and Plan Assessment: 1. Triple-vessel coronary artery disease 2. Severe mitral valve regurgitation, ischemic cardiomyopathy with severe global hypokinesia 3. Non-ST elevated myocardial infarction this admission with troponins as high as 20 4. Peripheral vascular disease, status post stent placement to his right SFA in May 2019 5. Chronic ongoing tobacco dependence of greater than 50 years 6. Hypertension 7. Hyperlipidemia 8. Chronic obstructive pulmonary disease 9. History of pancreatitis 10. Remote history of EtOH abuse Plan: The patient was seen and examined at his bedside in the intensive care unit. His chart and diagnostics were reviewed. He was seen and examined by Dr. Margarette Archibald from cardiothoracic surgery. We have initiated preoperative workup. Continue to optimize medical management with beta jose, statin, Cozaar and aspirin. Continue to hold Plavix. The cardiac catheterization films results have been discussed with the patient by Dr. Archibald. Recommendations are to obtain a preoperative workup including a transesophageal echocardiogram which will be completed tomorrow 07/26/2019 to be performed by Dr. BALDOMERO Shahid. Once all the preoperative workup has been obtained risks versus benefits regarding myocardial revascularization surgery will be discussed with the patient including the STS risk score. He will be made nothing by mouth after midnight for the transesophageal echocardiogram. The importance of smoking cessation was discussed with the patient. Medical management and other comorbidities per primary care service. Cardiology management recommendations per Dr. Shahid. More recommendations to follow based on his preoperative workup results. Thank you Dr. Shahid for this consult and we will look for to working with you in the care of this patient. Time with Patient: Greater than 30 <CristelaMargarette - Last Filed: 07/25/19 17:05> Surgical - Exam Vital Signs Pulse Ox 100 07/19/19 15:35 Results - Labs 07/25/19 15:00 07/25/19 15:00 Abnormal Lab Results - Last 24 Hours (Table) 07/24/19 07/25/19 07/25/19 Range/Units 20:33 06:03 15:00 RBC 3.14 L (4.30-5.90) m/uL Hgb 8.8 L (13.0-17.5) gm/dL Hct 29.6 L (39.0-53.0) % MCHC 29.8 L (31.0-37.0) g/dL RDW 16.1 H (11.5-15.5) % APTT 68.3 H 37.3 H (22.0-30.0) sec Glucose (74-99) mg/dL ALT (21-72) U/L 07/25/19 Range/Units 15:00 RBC (4.30-5.90) m/uL Hgb (13.0-17.5) gm/dL Hct (39.0-53.0) % MCHC (31.0-37.0) g/dL RDW (11.5-15.5) % APTT (22.0-30.0) sec Glucose 125 H (74-99) mg/dL ALT 15 L (21-72) U/L Diabetes panel 07/25/19 Range/Units 15:00 Sodium 140 (137-145) mmol/L Potassium 3.8 (3.5-5.1) mmol/L Chloride 105 (98-107) mmol/L Carbon Dioxide 26 (22-30) mmol/L BUN 18 (9-20) mg/dL Creatinine 0.76 (0.66-1.25) mg/dL Glucose 125 H (74-99) mg/dL Calcium 9.0 (8.4-10.2) mg/dL AST 26 (17-59) U/L ALT 15 L (21-72) U/L Alkaline Phosphatase 74 (38-126) U/L Total Protein 6.5 (6.3-8.2) g/dL Albumin 3.5 (3.5-5.0) g/dL Triglycerides 99 (<150) mg/dL HDL Cholesterol 41 (40-60) mg/dL Thyroid panel 07/25/19 Range/Units 15:00 TSH 1.610 (0.465-4.680) mIU/L Calcium panel 07/25/19 Range/Units 15:00 Calcium 9.0 (8.4-10.2) mg/dL Albumin 3.5 (3.5-5.0) g/dL Pituitary panel 07/25/19 Range/Units 15:00 Sodium 140 (137-145) mmol/L Potassium 3.8 (3.5-5.1) mmol/L Chloride 105 (98-107) mmol/L Carbon Dioxide 26 (22-30) mmol/L BUN 18 (9-20) mg/dL Creatinine 0.76 (0.66-1.25) mg/dL Glucose 125 H (74-99) mg/dL Calcium 9.0 (8.4-10.2) mg/dL TSH 1.610 (0.465-4.680) mIU/L Adrenal panel 07/25/19 Range/Units 15:00 Sodium 140 (137-145) mmol/L Potassium 3.8 (3.5-5.1) mmol/L Chloride 105 (98-107) mmol/L Carbon Dioxide 26 (22-30) mmol/L BUN 18 (9-20) mg/dL Creatinine 0.76 (0.66-1.25) mg/dL Glucose 125 H (74-99) mg/dL Calcium 9.0 (8.4-10.2) mg/dL Total Bilirubin 0.3 (0.2-1.3) mg/dL AST 26 (17-59) U/L ALT 15 L (21-72) U/L Alkaline Phosphatase 74 (38-126) U/L Total Protein 6.5 (6.3-8.2) g/dL Albumin 3.5 (3.5-5.0) g/dL Assessment and Plan Plan: High STS risk. BRAYDEN to re-assess EF and re-evaluate potential need for MV repair in addition to CABG if deemed a surgical candidate. Discussed with Dr Shahid. Margarette Archibald MD
--- NOTE | 2019-07-25 17:12 | P.PN ---
Progress Note - Text Progress Note Date: 07/25/19 Interval history: This is a pleasant [address] Bass. Patient called his regular checkup for a physical with his family doctor. Had been complaining of feeling tired for some time. For last 2 weeks patient had been getting a pressure across the chest pressure with exertion. Some shortness of breath. No radiation. Minimal dizziness lightheadedness. Just tired and rundown. Doctor's office called him to quit up to the ER as his hemoglobin was found to be 6.6 patient's ordered unit of blood last night. Later on patient is having more chest pain upon arriving on the floor. Blood pressures running a bit on the lower side. Cardiology was called. Nurse called and I ordered another unit of blood. Cardiology was consulted from the ER. Patient's said his cardiac symptoms have been getting worse in the last 2 weeks. Especially chest pressure. Patient does not know if he's been having black stools. No abdominal pain. Patient admitted with acute non-ST elevation myocardial infarction, severe symptomatic anemia, COPD exacerbation, acute CHF exacerbation EF 25-30%. EGD was unremarkable. sigmoidoscopy up to the descending colon negative. 2 polyps were found. Today- making taken to the [facility] today. Found to have severe triple-vessel disease. Heavily calcified vessels. No intervention could be done. Cardiothoracic surgery was consulted. Patient now post procedure in the ICU. No chest pain. Review of systems: Was done for constitutional, cardiovascular, GI, pulmonary. relevant finding as above Active Medications Acetaminophen (Tylenol Tab) 650 mg PO Q6HR PRN PRN Reason: Mild Pain or Fever > 100.5 Last Admin: 07/20/19 12:57 Dose: 650 mg Documented by: Alprazolam (Xanax) 0.25 mg PO Q6HR PRN PRN Reason: Mild Anxiety Alprazolam (Xanax) 0.5 mg PO Q6HR PRN PRN Reason: Moderate Anxiety Aspirin (Aspirin) 81 mg PO DAILY [facility] Last Admin: 07/25/19 07:07 Dose: 81 mg Documented by: Atorvastatin Calcium (Lipitor) 40 mg PO DAILY [facility] Last Admin: 07/25/19 07:06 Dose: 40 mg Documented by: Bacitracin (Bacitracin Oint) 1 applic TOPICAL BID [facility] Last Admin: 07/25/19 07:07 Dose: 1 applic Documented by: Furosemide (Lasix) 20 mg IV Q12H [facility] Last Admin: 07/25/19 06:21 Dose: Not Given Documented by: Hydromorphone HCl (Dilaudid) 0.5 mg IVP Q4HR PRN PRN Reason: Pain Last Admin: 07/20/19 21:36 Dose: 0.5 mg Documented by: Sodium Chloride (Saline 0.9%) 1,000 mls @ 50 mls/hr IV .Q20H [facility] Last Admin: 07/24/19 18:30 Dose: 25 mls/hr Documented by: Cefazolin Sodium 1,000 mg/ (Sodium Chloride) 50 mls @ 100 mls/hr IVPB Q8HR [facility] Last Admin: 07/25/19 17:02 Dose: 100 mls/hr Documented by: Nitroglycerin/Dextrose 50 mg/ (IV Solution) 250 mls @ 3 mls/hr IV .Q24H [facility]; Protocol Last Admin: 07/25/19 11:44 Dose: 10 mcg/min, 3 mls/hr Documented by: Losartan Potassium (Cozaar) 50 mg PO 2100 [facility] Metoprolol Tartrate (Lopressor) 50 mg PO TID [facility] Last Admin: 07/25/19 17:03 Dose: 50 mg Documented by: Naloxone HCl (Narcan) 0.2 mg IV Q2M PRN PRN Reason: Opioid Reversal Nitroglycerin (Nitrostat) 0.4 mg SUBLINGUAL ONCE PRN PRN Reason: Chest Pain Last Admin: 07/19/19 21:48 Dose: 0.4 mg Documented by: Ondansetron HCl (Zofran) 4 mg IVP Q8HR PRN PRN Reason: Nausea And Vomiting Last Admin: 07/20/19 23:57 Dose: 4 mg Documented by: Physical examination: VITAL SIGNS: 98.2, 82, 15, 121/60, 97% on room air GENERAL: Sitting up, comfortable EYES: Pupils equal. Conjunctiva pale. HEENT: External appearance of nose and ears normal, oral cavity grossly normal. NECK: JVD not raised; masses not palpable. HEART: First and second heart sounds are normal; no edema. LUNGS: Respiratory rate increased; diminished breath sounds. ABDOMEN: Soft, nontender, liver spleen not palpable, no masses palpable. PSYCH: Alert and oriented x3; mood and affect anxious today. INVESTIGATIONS, reviewed in the clinical context: White count 8.3 hemoglobin 8.8 potassium 3.8 creatinine 0.76 Admission testing: Troponin 0.036, 5.5, 20.5 EKG tracing-diffuse ST segment depression from V2 through V6 2-D echo-severe global hypokinesia. EF 25-30%, severe mitral regurgitation, moderate tricuspid regurgitation, moderate pulmonary hypertension Chest x-ray film high. In personally reviewed by me-hyperinflation CT of the chest abdomen pelvis-moderate bilateral pleural effusion right greater than left. Compressive atelectasis. Bilateral apical pleural parenchymal scarring. Hepatic parenchyma is diffusely hypoactive admitted. Pancreatic calcification. Assessment: -Acute non-ST elevation myocardial infarction, with a contribution from severe anemia -Severe triple-vessel heavily coronary vessels, upon cardiac cath today on July 25 -Severe symptomatic anemia, unclear at this point if it is a GI bleed. EGD and limited colonoscopy both negative. -COPD in a current smoker -Chronic nicotine dependence patient cigarette smoker -Acute congestive heart failure exacerbation from systolic dysfunction EF 25- 30%, clinically improved -Severe mitral regurgitation, moderate tricuspid regurgitation, nontraumatic -Moderate secondary pulmonary hypertension from COPD and possibly CHF -Sigmoid diverticulosis and colonic polyp. Plan: Cardiothoracic surgery was consulted. Continue other medication treatment plan. Care was discussed with the patient.
[2019-07-25 17:30] LABS: Appearance,Urine Clear (Clear); Bilirubin,Urine Negative (Negative); Blood,Urine Trace (Negative); Color,Urine Yellow; Glucose,Urine (UA) Negative (Negative); Ketones,Urine Negative (Negative); Leukocyte Esterase,Urine Negative (Negative); Nitrite,Urine Negative (Negative); PH, Urine 6.5 (5.0-8.0); Protein,Urine Negative (Negative); RBC,Urine 6 /hpf (0-5); Urobilinogen,Urine <2.0 mg/dL (<2.0)
[2019-07-25 17:59] LABS: Specific Gravity,Urine >1.050 (1.001-1.035)
[2019-07-25] MEDS: LOSARTAN 50 MG TAB PO SCH (21:37)
[2019-07-25] MEDS: MUPIROCIN 2% OINT 22 GM TUBE TOPICAL SCH (21:37)
[2019-07-26 00:46] LABS: Hepatitis A Antibody IgM Non-Reactive (Non-Reactive); Hepatitis B Core IgM Non-Reactive (Non-Reactive); Hepatitis B Surface Antigen Non-Reactive (Non-Reactive); Hepatitis C IgG Antibody Non-Reactive (Non-Reactive)
[2019-07-26 01:41] LABS: Hemoglobin A1C 5.3 % (4.0-6.0)
[2019-07-26 04:25] LABS: Basophils % (A) 0 %; Eosinophils # (A) 0.2 k/uL (0-0.7); Eosinophils % (A) 2 %; HCT 26.4 % (39.0-53.0); HGB 8.3 gm/dL (13.0-17.5); Hypochromasia Marked; Lymphocytes # (A) 1.2 k/uL (1.0-4.8); Lymphocytes % (A) 14 %; MCH 28.7 pg (25.0-35.0); MCHC 31.3 g/dL (31.0-37.0); MCV 91.7 fL (80.0-100.0); Mean Platelet Volume 6.3; Monocytes # (A) 0.6 k/uL (0-1.0); Monocytes % (A) 7 %; Neutrophils # (A) 6.6 k/uL (1.3-7.7); Neutrophils % (A) 74 %; Platelet Count 379 k/uL (150-450); Poikilocytosis Slight; RBC 2.88 m/uL (4.30-5.90); RDW 15.9 % (11.5-15.5); WBC 8.9 k/uL (3.8-10.6)
[2019-07-26 04:32] LABS: African American GFR (CKD) >90 (>60 ml/min/1.73 sqM); Anion Gap 7 mmol/L; Blood Urea Nitrogen 17 mg/dL (9-20); Calcium 8.7 mg/dL (8.4-10.2); Carbon Dioxide 23 mmol/L (22-30); Chloride 107 mmol/L (98-107); Glucose 94 mg/dL (74-99); Potassium 3.7 mmol/L (3.5-5.1); Sodium 137 mmol/L (137-145)
[2019-07-26] MEDS ORDERED: Potassium Replacement Protocol 1 EACH MISC MISCELLANE PRN (05:23)
[2019-07-26] MEDS ORDERED: POTASSIUM CHLORIDE ER 20 MEQ TAB.ER PO SCH (06:00)
[2019-07-26] MEDS: FUROSEMIDE 10 MG/ML 2 ML VIAL IV SCH ×2 (06:57→17:52)
[2019-07-26] MEDS: POTASSIUM CHLORIDE 10 MEQ in WATER FOR INJECTION 1 100ML.BAG IVPB SCH ×2 (06:57→08:31)
--- NOTE | 2019-07-26 06:58 | PN ---
PROGRESS NOTE This is a 69-year-old male that we saw last a couple days ago. He was admitted with a diagnosis of acute non ST-segment elevation myocardial infarction and ischemic cardiomyopathy with an ejection fraction of 25% to 30%. He went to the catheterization laboratory and was found to have significant coronary artery disease. Currently, he is being evaluated by cardiothoracic surgery for possible bypass grafting. A transesophageal echo is planned for today. In addition, he has got a couple of issues to resolve. One is CT scan of the abdomen which revealed a pancreatic head mass. That will have to be sorted out. He did have a spirometry. Based on his FEV1 and his MVV, he is at very low increased operative risk if surgery were to be undertaken. Currently, he is on room air. His IV is saline at 50 mL an hour. He is getting a nitroglycerin drip at 10 mcg/minute. He does have a history of previous chronic alcohol abuse and chronic pancreatitis as well as 50 years of tobacco use at 1 pack a day. He also has a history of hyperlipidemia. His EGD showed evidence of mild gastritis with a small hiatal hernia and duodenal biopsies were performed. In addition, his colonoscopy showed no inflammation or mass, there were 2 pedunculated sigmoid polyps, the largest one measuring 2 cm in size. They were biopsied. In addition, there was moderate sigmoid diverticulosis. His cardiac catheterization done on July 25 revealed triple-vessel heavily calcified disease. PHYSICAL EXAMINATION: VITAL SIGNS: Current vital signs reviewed. Temperature 98.7, heart rate 66, respiratory rate 18, blood pressure 117/67, saturations on room air 94% to 95%. GENERAL: Appears in no acute distress. HEENT: Examination is grossly unremarkable. No supplemental oxygen at this time. NECK: Supple. Full range of motion. No adenopathy. CARDIOVASCULAR: Examination reveals regular rhythm and rate. Heart rate 66. S1, S2 normal. LUNGS: Reveal mostly clear breath sounds. No wheezes, rhonchi, or crackles. ABDOMEN: Soft. EXTREMITIES: Are intact. No cyanosis, clubbing, or edema. SKIN: Without rash. NEUROLOGIC: Examination is brief but nonfocal. White count 8.9, hemoglobin 8.3, hematocrit 26.4, platelet count 379,000. Sodium, potassium, chloride, CO2 all normal. Anion gap normal. Kidney functions normal. Urine is negative. Hepatitis serology is negative. His carotid study showed stenosis in his carotid arteries, but not critical stenosis. Microbiology is negative. MEDICATIONS: Medications are reviewed. ASSESSMENT: 1. Severe heavily calcified triple-vessel coronary artery disease. 2. Acute non ST-segment elevation myocardial infarction. 3. Ischemic cardiomyopathy with severe global hypokinesis and ejection fraction of 25% to 30%. 4. Acute anemia, with essentially negative EGD and colonoscopy. There was evidence of some gastritis as well as evidence of some diverticulosis and a couple polyps noted. 5. Peripheral vascular occlusive disease with recent stent placement in the right lower extremity. 6. Chronic and ongoing tobacco dependence for more than 50 years. 7. Hyperlipidemia. 8. Very mild chronic obstructive pulmonary disease. 9. History of pancreatitis. 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 11.History of alcohol abuse. 12.Systolic congestive heart failure. PLAN: From the pulmonary standpoint, the patient is reasonably stable and his lung functions despite 50 years of tobacco use are surprisingly good. His FEV1 and MVV would predict that he would do fine with general anesthesia. There is a number of other issues to sort out. Transesophageal echocardiogram is being done today. Also, there is an issue of the possible pancreatic head mass. We will continue to follow. Prognosis is guarded given his plethora of medical problems. No additional recommendations are made at this time. MMODL / IJN: [id number] /
[2019-07-26] MEDS: METOPROLOL TARTRATE 50 MG TAB PO SCH ×3 (08:45→20:21)
[2019-07-26] MEDS: ATORVASTATIN 40 MG TAB PO SCH (08:45)
[2019-07-26] MEDS: BACITRACIN 500 UNIT/GM OINT 28.4 GM TUBE TOPICAL SCH ×2 (08:47→20:21)
[2019-07-26] MEDS: MUPIROCIN 2% OINT 22 GM TUBE TOPICAL SCH ×2 (08:47→20:21)
[2019-07-26 09:36] VITALS: BMI 17.7
--- NOTE | 2019-07-26 09:46 | P.PN ---
Subjective Progress Note Date: 07/26/19 Principal diagnosis: Triple-vessel coronary artery disease, severe mitral valve regurgitation, moderate tricuspid valve regurgitation, NSTEMI, ischemic cardiomyopathy witg severe global hypokinesia. Patient with pmh significant for chronic obstructive pulmonary disease, hypertension, hyperlipidemia, bilateral carotid stenosis, peripheral vascular disease with history of recent stent placement to his superficial femoral artery in May 2019 and is currently on Plavix, history of chronic ongoing tobacco abuse and history of pancreatitis. The patient is sitting up in bed in the ICU and denies any chest pain currently on Nitro drip. The patient is currently on room air no distress noted. Anticipating BRAYDEN today. No new complaints. Objective - Vital Signs Vital signs: Vital Signs Temp 98.2 F 07/26/19 08:00 Pulse 66 07/26/19 08:00 Resp 16 07/26/19 08:00 BP 126/69 07/26/19 08:00 Pulse Ox 95 07/26/19 08:00 Intake & Output 07/25/19 07/26/19 07/26/19 18:59 06:59 18:59 Intake Total 446.04 550 100 Output Total 950 1150 400 Balance -503.96 -600 -300 Weight 49.895 kg Intake: IV 446.04 550 100 Sodium Chloride 0.9% 1, 275 550 100 000 ml @ 50 mls/hr IV . Q20H [facility] Rx#:[id number] Output: Urine 950 1150 400 Other: Voiding Method Urinal Urinal - Constitutional General appearance: Present: cooperative, no acute distress, thin - Respiratory Details: Respirations even and unlabored. Patient on RA SPO2 97%. Bilateral crackles to bases. Using IS and able to achieve 1500ml. - Cardiovascular Details: S1, S2 Regular rate and rhythm, no murmur. NSR on monitor. No peripheral edema noted, 2+ peripheral pulses, no calf pain or tenderness. Currently has SCDs on. - Gastrointestinal Gastrointestinal Comment(s): Abdomen soft, non-tender and non-distended. + bowel sounds x 4 quadrants. Patient tolerating diet. - Genitourinary Genitourinary Comment(s): Patient voiding clear yellow urine - Integumentary Integumentary Comment(s): Skin warm dry and intact. - Neurologic Neurologic: Present: CNII-XII intact - Musculoskeletal Musculoskeletal: Present: strength equal bilaterally - Psychiatric Psychiatric Comment(s): appears depressed Psychiatric: Present: A&O x's 3 - Allied health notes Allied health notes reviewed: nursing - Labs CBC & Chem 7: 07/26/19 04:10 07/26/19 04:10 Labs: Abnormal Lab Results - Last 24 Hours (Table) 07/25/19 07/25/19 07/25/19 Range/Units 15:00 15:00 17:14 RBC 3.14 L (4.30-5.90) m/uL Hgb 8.8 L (13.0-17.5) gm/dL Hct 29.6 L (39.0-53.0) % MCHC 29.8 L (31.0-37.0) g/dL RDW 16.1 H (11.5-15.5) % Glucose 125 H (74-99) mg/dL ALT 15 L (21-72) U/L Ur Specific [place] >1.050 H (1.001-1.035) Urine Blood Trace H (Negative) Urine RBC 6 H (0-5) /hpf 07/26/19 Range/Units 04:10 RBC 2.88 L (4.30-5.90) m/uL Hgb 8.3 L (13.0-17.5) gm/dL Hct 26.4 L (39.0-53.0) % MCHC (31.0-37.0) g/dL RDW 15.9 H (11.5-15.5) % Glucose (74-99) mg/dL ALT (21-72) U/L Ur Specific [place] (1.001-1.035) Urine Blood (Negative) Urine RBC (0-5) /hpf Microbiology - Last 24 Hours (Table) 07/25/19 14:15 Nasal Screen MRSA/MSSA - Preliminary Nasal Swab - Imaging and Cardiology Chest x-ray: report reviewed, image reviewed CT scan - abdomen: report reviewed reviewed carotids, PFTs Assessment and Plan Assessment: 1. Triple-vessel coronary artery disease 2. Severe mitral valve regurgitation, ischemic cardiomyopathy with severe global hypokinesia 3. Non-ST elevated myocardial infarction this admission with troponins as high as 20 4. Iron deficiency Anemia 5. Bilateral carotid stenosis 6. Peripheral vascular disease, status post stent placement to his right SFA in May 2019 7. Chronic ongoing tobacco dependence of greater than 50 years 8. Hypertension 9. Hyperlipidemia 10. Chronic obstructive pulmonary disease 11. History of pancreatitis 12. Remote history of EtOH abuse Plan: 1. BRAYDEN today to evaluate mitral valve, Will calculate STS score 2. Continue to maximize medical therapy with ASA, statin, beta jose. Continue to hold Plavix. 3. Encourage IS use 10 x every hour 4. Encourage smoking cessation 5. Reinforce pre-operative teaching 6. Encourage increased activity 7. GI/DVT prophylaxis 8. Pulmonary management per Dr. Peñaloza 9. Anemia management per Dr. Frank, GI 10. Medical management of other co-morbidities by primary care service 11. More recommendations to follow Time with Patient: Greater than 30
--- NOTE | 2019-07-26 10:13 | P.VSCSTY ---
Greater Saphenous Vein Mapping This is bilateral lower extremity greater saphenous vein mapping. Date of service: 07/25/2019 Vein quality and ultrasound appearance: No endoluminal thrombus or wall changes are seen. Above the knee almost to the ankle on the right and left are both somewhat small for use as conduit. Vein size groin right : 4.3 x 5.5 groin left: 4.7 x 6.1 High thigh right: 3.0 x 3.5 high thigh left: 3.0 x 3.5 Mid thigh right: 2.2 x 2.9 mid thigh left: 2.0 x 2.5 Above-knee right: 1.9 x 2.1 above- knee left: 1.9 x 2.7 Below knee right: 1.9 x 2.4 below-knee left: 2.1 x 2.5 Mid calf right: 1.6 x 2.1 mid calf left: 1.6 x 2.0 Ankle right: 2.1 x 3.3 ankle left: 1.8 x 2.5 Impression: Some usable vein in both upper thighs. Mid and distal appear possibly to small for use..
--- NOTE | 2019-07-26 10:54 | PN ---
PROGRESS NOTE Mr. Finley underwent a cardiac cath from right radial approach yesterday. He has heavily calcified coronary arteries. I could not cross the RCA, I could not open the LAD because of heavy calcification. I am recommending aortocoronary bypass surgery, but there is evidence of mitral regurgitation, global decrease in contractility. Will therefore, request a transesophageal echo to be performed. He is asymptomatic, comfortable on 10 mcg of nitro. Doing well. Vitals are stable. No JVD. S1, S2. heard normally. Short systolic murmur noted. Lungs are clear. Abdomen and lower extremity exam unchanged. The right radial cath site is clean and dry. Plan is to hold Plavix in preparation for coronary artery bypass surgery and perform BRAYDEN hopefully today or tomorrow. MMODL / IJN: [id number] /
[2019-07-26] MEDS ORDERED: fentaNYL (PF) 50 MCG/ML 2 ML AMP ONE (11:21)
[2019-07-26] MEDS ORDERED: BENZOCAINE SPRAY 1 CAN MUCOUS MEM ONE (11:41)
[2019-07-26] MEDS ORDERED: MIDAZOLAM PF (FBP) 2 MG/2 ML VIAL IV ONE (11:45)
[2019-07-26] MEDS ORDERED: fentaNYL (PF) 50 MCG/ML 2 ML AMP IV ONE (11:45)
--- NOTE | 2019-07-26 13:06 | ECHOT ---
TRANSESOPHAGEAL ECHOCARDIOGRAM This transesophageal echocardiogram was performed to assess the mitral regurgitation. The patient was given intravenous sedation with Versed and fentanyl and transesophageal echocardiogram was performed without any complications. FINDINGS: Left ventricular chamber is normal and mildly dilated with evidence of global hypokinesia with ejection fraction in the range of 30%. The mitral valve morphology is normal. There is no evidence of mitral valve prolapse. Color Doppler study shows only evidence of mild degree of mitral regurgitation. There is no evidence of any reversal of flow in the pulmonary vein and pulmonary systolic wave is greater than the diastolic wave. The left atrium is [id number] enlarged. Left atrial appendage is clear. Right ventricle and right atrium are normal in size. Aortic valve is sclerotic without evidence of aortic stenosis. Interatrial septum is intact. There is no evidence of any PFO. Saline contrast study does not show any evidence of irctd-[id number] shunt. FINAL IMPRESSION: 1. Normal left ventricular chamber size with global hypokinesia with ejection fraction of 30%. 2. Mitral valve morphology is normal. At present, there is only evidence of mild degree of mitral regurgitation. 3. Aortic valve is sclerotic without evidence of aortic stenosis .. 4. Left atrial appendage is clear. 5. Interatrial septum is intact. There are diffuse atherosclerotic changes noted in the descending thoracic aorta. MMODL / IJN: [id number] /
[2019-07-26] MEDS: ASPIRIN 81 MG PO SCH (13:08)
[2019-07-26] MEDS: SERTRALINE 25 MG TAB PO SCH (13:13)
[2019-07-26] MEDS: SODIUM CHLORIDE 0.9% 1,000 ML IV SCH (16:29)
[2019-07-26] MEDS: NITROGLYCERIN OINT 1 INCH/GM PACKET TOPICAL SCH (17:52)
[2019-07-26] MEDS: LOSARTAN 50 MG TAB PO SCH (20:21)
--- NOTE | 2019-07-26 21:09 | P.PN ---
Progress Note - Text Progress Note Date: 07/26/19 Interval history: This is a pleasant [address] Bass. Patient called his regular checkup for a physical with his family doctor. Had been complaining of feeling tired for some time. For last 2 weeks patient had been getting a pressure across the chest pressure with exertion. Some shortness of breath. No radiation. Minimal dizziness lightheadedness. Just tired and rundown. Doctor's office called him to quit up to the ER as his hemoglobin was found to be 6.6 patient's ordered unit of blood last night. Later on patient is having more chest pain upon arriving on the floor. Blood pressures running a bit on the lower side. Cardiology was called. Nurse called and I ordered another unit of blood. Cardiology was consulted from the ER. Patient's said his cardiac symptoms have been getting worse in the last 2 weeks. Especially chest pressure. Patient does not know if he's been having black stools. No abdominal pain. Patient admitted with acute non-ST elevation myocardial infarction, severe symptomatic anemia, COPD exacerbation, acute CHF exacerbation EF 25-30%. EGD was unremarkable. sigmoidoscopy up to the descending colon negative. 2 polyps were found. Cath done-Found to have severe triple-vessel disease. Heavily calcified vessels. No intervention could be done. Seen by CTS. Today-had a BRAYDEN today. EF 30%. Sitting up in bed. No new issues. Review of systems: Was done for constitutional, cardiovascular, GI, pulmonary. relevant finding as above Active Medications Acetaminophen (Tylenol Tab) 650 mg PO Q6HR PRN PRN Reason: Mild Pain or Fever > 100.5 Last Admin: 07/20/19 12:57 Dose: 650 mg Documented by: Alprazolam (Xanax) 0.25 mg PO Q6HR PRN PRN Reason: Mild Anxiety Alprazolam (Xanax) 0.5 mg PO Q6HR PRN PRN Reason: Moderate Anxiety Aspirin (Aspirin) 81 mg PO DAILY [facility] Last Admin: 07/26/19 13:08 Dose: 81 mg Documented by: Atorvastatin Calcium (Lipitor) 40 mg PO DAILY [facility] Last Admin: 07/26/19 08:45 Dose: 40 mg Documented by: Bacitracin (Bacitracin Oint) 1 applic TOPICAL BID [facility] Last Admin: 07/26/19 20:21 Dose: 1 applic Documented by: Furosemide (Lasix) 20 mg IV Q12H [facility] Last Admin: 07/26/19 17:52 Dose: 20 mg Documented by: Hydromorphone HCl (Dilaudid) 0.5 mg IVP Q4HR PRN PRN Reason: Pain Last Admin: 07/20/19 21:36 Dose: 0.5 mg Documented by: Sodium Chloride (Saline 0.9%) 1,000 mls @ 50 mls/hr IV .Q20H [facility] Last Admin: 07/26/19 16:29 Dose: 50 mls/hr Documented by: Cefazolin Sodium 1,000 mg/ (Sodium Chloride) 50 mls @ 100 mls/hr IVPB Q8HR [facility] Last Admin: 07/26/19 16:25 Dose: 100 mls/hr Documented by: Losartan Potassium (Cozaar) 50 mg PO 2100 [facility] Last Admin: 07/26/19 20:21 Dose: 50 mg Documented by: Metoprolol Tartrate (Lopressor) 50 mg PO TID [facility] Last Admin: 07/26/19 20:21 Dose: 50 mg Documented by: Mupirocin (Bactroban Oint) 1 applic TOPICAL BID [facility] Last Admin: 07/26/19 20:21 Dose: 1 applic Documented by: Naloxone HCl (Narcan) 0.2 mg IV Q2M PRN PRN Reason: Opioid Reversal Nitroglycerin (Nitrostat) 0.4 mg SUBLINGUAL ONCE PRN PRN Reason: Chest Pain Last Admin: 07/19/19 21:48 Dose: 0.4 mg Documented by: Nitroglycerin (Nitro-Bid Oint) 0.5 inch TOPICAL Q6HR [facility] Last Admin: 07/26/19 17:52 Dose: 0.5 inch Documented by: Ondansetron HCl (Zofran) 4 mg IVP Q8HR PRN PRN Reason: Nausea And Vomiting Last Admin: 07/20/19 23:57 Dose: 4 mg Documented by: Sertraline HCl (Zoloft) 25 mg PO DAILY [facility] Last Admin: 07/26/19 13:13 Dose: 25 mg Documented by: Physical examination: VITAL SIGNS: 98.2, 70, 16, 100/58, 96%-room air GENERAL: Propped up comfortable EYES: Pupils equal. Conjunctiva pale. HEENT: External appearance of nose and ears normal, oral cavity grossly normal. NECK: JVD not raised; masses not palpable. HEART: First and second heart sounds are normal; no edema. LUNGS: Respiratory rate increased; diminished breath sounds. ABDOMEN: Soft, nontender, liver spleen not palpable, no masses palpable. PSYCH: Alert and oriented x3; mood and affect anxious today. INVESTIGATIONS, reviewed in the clinical context: Hemoglobin 8.3 crit 0.79 Admission testing: Troponin 0.036, 5.5, 20.5 EKG tracing-diffuse ST segment depression from V2 through V6 2-D echo-severe global hypokinesia. EF 25-30%, severe mitral regurgitation, moderate tricuspid regurgitation, moderate pulmonary hypertension Chest x-ray film high. In personally reviewed by me-hyperinflation CT of the chest abdomen pelvis-moderate bilateral pleural effusion right greater than left. Compressive atelectasis. Bilateral apical pleural parenchymal scarring. Hepatic parenchyma is diffusely hypoactive admitted. Pancreatic calcification. Assessment: -Acute non-ST elevation myocardial infarction, with a contribution from severe anemia -Severe triple-vessel heavily coronary vessels, upon cardiac cath today on July 25 -Severe symptomatic anemia, unclear at this point if it is a GI bleed. EGD and limited colonoscopy both negative. -COPD in a current smoker -Chronic nicotine dependence patient cigarette smoker -Acute congestive heart failure exacerbation from systolic dysfunction EF 25- 30%, ischemic cardiomyopathy, clinically improved -Mitral valve morphology normal. BRAYDEN -Moderate secondary pulmonary hypertension from COPD and possibly CHF -Sigmoid diverticulosis and colonic polyp. Plan: Continue current medication treatment plan. Further disposition pending from [facility] thoracic surgery.
[2019-07-27] MEDS: NITROGLYCERIN OINT 1 INCH/GM PACKET TOPICAL SCH ×3 (00:14→12:18)
[2019-07-27 04:26] LABS: Anisocytosis Slight; Basophils % (A) 0 %; Eosinophils # (A) 0.2 k/uL (0-0.7); Eosinophils % (A) 3 %; HCT 27.1 % (39.0-53.0); HGB 8.6 gm/dL (13.0-17.5); Hypochromasia Marked; Lymphocytes # (A) 1.5 k/uL (1.0-4.8); Lymphocytes % (A) 19 %; MCH 28.7 pg (25.0-35.0); MCHC 31.6 g/dL (31.0-37.0); MCV 90.8 fL (80.0-100.0); Mean Platelet Volume 6.4; Monocytes # (A) 0.6 k/uL (0-1.0); Monocytes % (A) 8 %; Neutrophils # (A) 5.2 k/uL (1.3-7.7); Neutrophils % (A) 66 %; Platelet Count 410 k/uL (150-450); Poikilocytosis Slight; RBC 2.99 m/uL (4.30-5.90); WBC 7.8 k/uL (3.8-10.6)
[2019-07-27 04:34] LABS: African American GFR (CKD) >90 (>60 ml/min/1.73 sqM); Anion Gap 6 mmol/L; Blood Urea Nitrogen 19 mg/dL (9-20); Calcium 8.7 mg/dL (8.4-10.2); Carbon Dioxide 25 mmol/L (22-30); Chloride 103 mmol/L (98-107); Glucose 100 mg/dL (74-99); Potassium 3.9 mmol/L (3.5-5.1); Sodium 134 mmol/L (137-145)
[2019-07-27] MEDS ORDERED: POTASSIUM CHLORIDE ER 20 MEQ TAB.ER PO SCH (05:00)
[2019-07-27] MEDS: FUROSEMIDE 10 MG/ML 2 ML VIAL IV SCH (06:22)
--- NOTE | 2019-07-27 06:58 | PN ---
PROGRESS NOTE DATE OF SERVICE: July 27, 2019 This is a 69-year-old male that was admitted with a diagnosis of non ST-segment elevation myocardial infarction and ischemic cardiomyopathy with an ejection fraction of 25% to 30%. His catheterization revealed significant triple-vessel heavily calcified coronary artery disease. He is currently being evaluated by Cardiothoracic Surgery and Cardiology for possible bypass grafting. A transesophageal echo was done yesterday. Currently, he is not receiving any supplemental oxygen. His IV is saline at 50 mL an hour. His pulmonary function tests were surprisingly good despite 50 years of tobacco use at more than one pack a day. The patient also had an evaluation for GI bleed. His EGD showed mild gastritis and a small hiatal hernia and biopsies were performed. His colonoscopy revealed some sigmoid polyps that were biopsied/removed. From the current standpoint, he is doing well. He is not having any pain or discomfort. No difficulty breathing. No nausea, vomiting, diarrhea, fever, chills or genitourinary complaints. PHYSICAL EXAMINATION: VITAL SIGNS: Current vital signs are reviewed. Temperature 98.4, heart rate 69, respiratory rate 14, blood pressure 132/67, mean 88, saturations are 95% on room air. GENERAL: Appears in no acute distress. HEENT: Examination is grossly unremarkable. Mucous membranes are moist. No oral lesions. NECK: Supple. Full range of motion. No adenopathy. Neck veins are flat. CARDIOVASCULAR: Examination reveals regular rhythm and rate. Heart rate 69. He is in sinus rhythm. S1, S2 normal. There is no murmur. LUNGS: Reveal mostly clear breath sounds. No wheezes, rhonchi, or crackles. Breath sounds equal bilaterally. ABDOMEN: Soft. Bowel sounds are heard. EXTREMITIES: Are intact. No cyanosis, clubbing, or edema. SKIN: Without rash. NEUROLOGIC: Examination is brief but nonfocal. White count 7.8, hemoglobin 8.6, hematocrit 27.1, platelet count 410,000. Sodium 134. Potassium, chloride, CO2 all normal. Anion gap normal. BUN and creatinine were 19 and 0.75. Urine is negative. Hepatitis serology is negative. Nasal screen was positive for non-MRSA Staph aureus. No recent chest x-ray was done. Transesophageal echocardiogram showed normal left ventricular chamber size with global hypokinesis and ejection fraction of 30%. Mitral valve morphology was normal. There was mild mitral regurgitation. Aortic valve was sclerotic without aortic stenosis. MEDICATIONS: Medications are reviewed. ASSESSMENT: 1. Severe heavily calcified triple-vessel coronary artery disease. 2. Acute non ST-segment elevation myocardial infarction. 3. Ischemic cardiomyopathy with severe global hypokinesis and ejection fraction by transesophageal echocardiogram of 30%. 4. Acute anemia, with essentially negative EGD and colonoscopy. There was some evidence of gastritis as well as some diverticulosis and colonic polyps noted. 5. Peripheral vascular occlusive disease with recent stent placement in the right lower extremity. 6. Chronic and ongoing tobacco dependence for more than 50 years with reasonably good lung function. 7. Hyperlipidemia. 8. History of pancreatitis. 9. Questionable pancreatic head mass. 10.History of alcohol abuse. 11.Systolic congestive heart failure, stable. PLAN: From the pulmonary standpoint, his lung function more than adequate for general anesthetic. There are still some issues out there remaining. I will leave that up to the Cardiology and Primary Service. We will continue to follow along. His pulmonary status is stable. Hemodynamically, he has been stable. No other issues to speak to at this point. We will continue to follow. Awaiting decision by Cardiothoracic Surgery and Cardiology. MMODL / IJN: [id number] /
--- NOTE | 2019-07-27 07:42 | P.PN ---
Subjective Progress Note Date: 07/27/19 Principal diagnosis: Triple-vessel coronary artery disease, severe mitral valve regurgitation on admission currently mild mitral valve regurgitation on transesophageal echocardiogram, moderate tricuspid valve regurgitation, NSTEMI, acute systolic heart failure, ischemic cardiomyopathy with severe global hypokinesia and EF 30%, anemia on admission. Previous medical history of hypertension, hyperlipidemia, chronic obstructive pulmonary disease, chronic ongoing tobacco abuse with preoperative FEV1 81% of predicted, bilateral carotid stenosis, peripheral vascular disease with stent placement to his superficial femoral artery in May 2019, and history of alcohol abuse with pancreatitis. Preoperative nasal swab positive for MSSA. The patient is currently sitting up in bed in the intensive care unit in no acute distress. Denies any chest pain or shortness of breath. Ambulated in the hallway yesterday. Transesophageal echocardiogram was completed yesterday, results reviewed between Dr. Archibald and Dr. Shahid. No new questions at this time. Objective - Vital Signs Vital signs: Vital Signs Temp 98.4 F 07/27/19 04:00 Pulse 80 07/27/19 07:00 Resp 14 07/27/19 07:00 BP 153/74 07/27/19 07:00 Pulse Ox 97 07/27/19 07:22 Intake & Output 07/26/19 07/27/19 07/27/19 18:59 06:59 18:59 Intake Total 750 1400 50 Output Total 800 1325 525 Balance -50 75 -475 Weight 49.895 kg 54.3 kg Intake: IV 600 600 50 Sodium Chloride 0.9% 1, 600 600 50 000 ml @ 50 mls/hr IV . Q20H LINDA Rx#:[id number] Intake, IV Titration 150 Amount Potassium Chloride 10 meq 100 In Water For Injection 1 100ml.bag @ 100 mls/hr IVPB Q1H LINDA Rx#: [id number] ceFAZolin 1,000 mg In 50 Sodium Chloride 0.9% 50 ml @ 100 mls/hr IVPB Q8HR LINDA Rx#:[id number] Oral 800 Output: Urine 800 1325 525 Other: Voiding Method Urinal Urinal # Bowel Movements 1 - Constitutional General appearance: Present: cooperative, no acute distress, thin - Respiratory Details: Lungs sounds diminished bilaterally. Respirations even, nonlabored. Currently on room air with oxygen saturation 95%. Able to achieve 1750 mL on his incentive spirometry. Strong cough. - Cardiovascular Details: S1, S2 present. Regular rate and rhythm, sinus rhythm on telemetry. Palpable peripheral pulses bilaterally. No edema present. No calf pain or tenderness noted. SCDs present. - Gastrointestinal Gastrointestinal Comment(s): Abdomen soft, nontender, nondistended. Active bowel sounds present 4 quadrants. Tolerating diet. - Genitourinary Genitourinary Comment(s): Continues to void clear, yellow urine per urinal. - Integumentary Integumentary Comment(s): Skin is warm and dry with evidence of good perfusion. - Neurologic Neurologic: Present: CNII-XII intact - Musculoskeletal Musculoskeletal: Present: gait normal, strength equal bilaterally - Psychiatric Psychiatric: Present: A&O x's 3, appropriate affect, intact judgment & insight - Allied health notes Allied health notes reviewed: nursing - Labs CBC & Chem 7: 07/27/19 04:08 07/27/19 04:08 Labs: Abnormal Lab Results - Last 24 Hours (Table) 07/27/19 07/27/19 Range/Units 04:08 04:08 RBC 2.99 L (4.30-5.90) m/uL Hgb 8.6 L (13.0-17.5) gm/dL Hct 27.1 L (39.0-53.0) % RDW 16.0 H (11.5-15.5) % Sodium 134 L (137-145) mmol/L Glucose 100 H (74-99) mg/dL Microbiology - Last 24 Hours (Table) 07/25/19 14:15 Nasal Screen MRSA/MSSA - Final Nasal Swab Staphylococcus aureus,Not MRSA - Imaging and Cardiology Chest x-ray: image reviewed Assessment and Plan Assessment: 1. Triple-vessel coronary artery disease 2. Severe mitral valve regurgitation on admission currently mild mitral valve regurgitation on transesophageal echocardiogram 3. Acute systolic heart failure, ischemic cardiomyopathy with severe global hypokinesia, EF 30% 4. Non-ST elevated myocardial infarction this admission 5. Anemia on admission status post blood transfusion 6. Bilateral carotid stenosis 7. Hypertension 8. Hyperlipidemia 9. COPD 10. Chronic ongoing tobacco abuse with preoperative FEV1 81% of predicted 11. Peripheral vascular disease, status post stent placement to his right SFA in May 2019 12. Remote history of alcohol abuse with pancreatitis 13. Preoperative nasal swab positive for MSSA Plan: 1. Continue to maximize medical therapy with aspirin, statin, beta jose. Continue to hold Plavix. 2. Case discussed between Dr. Archibald and Dr. Rodriguez today. Dr. Shahid to explore complex PCI option. Decision for complex PCI versus surgical revascularization forthcoming 3. Patient needs aggressive nutritional support. Dietary supplements ordered. 4. Encourage incentive spirometry use 10 x every hour 5. Encourage smoking cessation 6. Encourage increased activity, ambulate in hallway, PT/OT ordered. 7. GI/DVT prophylaxis 8. Pulmonary management per Dr. Peñaloza 9. Anemia management per Dr. Frank, GI 10. Social work consulted for guardianship/power of employment law attorney as patient has no family support 11. Medical management of other co-morbidities by primary care service 12. More recommendations to follow Time with Patient: Greater than 30
--- NOTE | 2019-07-27 08:08 | PN ---
PROGRESS NOTE Mr. Finley has significant triple-vessel disease, heavily calcified, unsuccessful PCI because of extensive calcification. Dr. Archibald evaluated him. Mitral regurgitation is not significant. He will require bypass surgery, but he is only 45 kg not well nourished. Surgery remains a high risk. We will explore percutaneous options. I will seek an opinion from [facility] or [facility] to see if he is a candidate for a rotablator type intervention. I discussed my thoughts in detail with the patient. Vitals are stable. No JVD. S1, S2 heard normally. Short systolic murmur noted. Lungs are clear. Abdomen and lower extremity exam unchanged. Plan is to continue current medications and move him to telemetry and put him on subcu heparin 3000 units q.12 hours. MMTENL / IJN: [id number] /
[2019-07-27] MEDS: ATORVASTATIN 40 MG TAB PO SCH (08:28)
[2019-07-27] MEDS: METOPROLOL TARTRATE 50 MG TAB PO SCH ×2 (08:28→15:28)
[2019-07-27] MEDS: SERTRALINE 25 MG TAB PO SCH (08:28)
[2019-07-27] MEDS: ASPIRIN 81 MG PO SCH (08:28)
[2019-07-27] MEDS: BACITRACIN 500 UNIT/GM OINT 28.4 GM TUBE TOPICAL SCH (08:29)
[2019-07-27] MEDS: MUPIROCIN 2% OINT 22 GM TUBE TOPICAL SCH (08:29)
[2019-07-27] MEDS ORDERED: HEPARIN SODIUM,PORCINE 5,000 UNIT/ML 1 ML VIAL SQ SCH (09:00)
[2019-07-27 10:38] VITALS: RESP 19
[2019-07-27] MEDS: SODIUM CHLORIDE 0.9% 1,000 ML IV SCH (12:21)
[2019-07-27 12:24] VITALS: BP 114/76; PULSE 64; TEMP 97.8
--- NOTE | 2019-07-28 21:26 | P.DS ---
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 Bass. Patient called his regular checkup for a physical with his family doctor. Had been complaining of feeling tired for some time. For last 2 weeks patient had been getting a pressure across the chest pressure with exertion. Some shortness of breath. No radiation. Minimal dizziness lightheadedness. Just tired and rundown. Doctor's office called him to quit up to the ER as his hemoglobin was found to be 6.6 patient's ordered unit of blood last night. Later on patient is having more chest pain upon arriving on the floor. Blood pressures running a bit on the lower side. Cardiology was called. Nurse called and I ordered another unit of blood. Cardiology was consulted from the ER. Patient's said his cardiac symptoms have been getting worse in the last 2 weeks. Especially chest pressure. Patient does not know if he's been having black stools. No abdominal pain. Patient admitted with acute non-ST elevation myocardial infarction, severe symptomatic anemia, COPD exacerbation, acute CHF exacerbation EF 25-30%. EGD was unremarkable. sigmoidoscopy up to the descending colon negative. 2 polyps were found. Cath done-Found to have severe triple-vessel disease. Heavily calcified vessels. No intervention could be done. Seen by CTS. Today-to decided by the cardiothoracic team that and cardiology that patient be so but tired a high level of care given his complicated anatomy. I discussed with the patient. His agreeable to the transfer. He will inform his neighbor was also's friend. They considered the optional rotablation. Consultation: Dr. Salazar from [facility] thoracic surgery Dr. Giordano from movie machine operator Cardiology associates Dr. Ghosh from GI Physical examination: VITAL SIGNS: 97.8, 64, 19, 11 4/76, 99% room air GENERAL: Propped up comfortable EYES: Pupils equal. Conjunctiva pale. HEENT: External appearance of nose and ears normal, oral cavity grossly normal. NECK: JVD not raised; masses not palpable. HEART: First and second heart sounds are normal; no edema. LUNGS: Respiratory rate increased; diminished breath sounds. ABDOMEN: Soft, nontender, liver spleen not palpable, no masses palpable. PSYCH: Alert and oriented x3; mood and affect anxious today. INVESTIGATIONS, reviewed in the clinical context: Hemoglobin 8.6 creatinine 0.75 Admission testing: Troponin 0.036, 5.5, 20.5 EKG tracing-diffuse ST segment depression from V2 through V6 2-D echo-severe global hypokinesia. EF 25-30%, severe mitral regurgitation, moderate tricuspid regurgitation, moderate pulmonary hypertension Chest x-ray film high. In personally reviewed by me-hyperinflation CT of the chest abdomen pelvis-moderate bilateral pleural effusion right greater than left. Compressive atelectasis. Bilateral apical pleural parenchymal scarring. Hepatic parenchyma is diffusely hypoactive admitted. Pancreatic calcification. Discharge diagnosis: -Acute non-ST elevation myocardial infarction, with a contribution from severe anemia -Severe triple-vessel heavily coronary vessels, upon cardiac cath on July 25 -Severe symptomatic anemia, unclear at this point if it is a GI bleed. EGD and limited colonoscopy both negative. -COPD in a current smoker -Chronic nicotine dependence patient cigarette smoker -Acute congestive heart failure exacerbation from systolic dysfunction EF 25- 30%, ischemic cardiomyopathy, clinically improved -Mitral valve morphology normal. BRAYDEN -Moderate secondary pulmonary hypertension from COPD and possibly CHF -Sigmoid diverticulosis and colonic polyp. Disposition: [facility] for higher level of care. 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 Patient Condition at Discharge: Undetermined Plan - Discharge Summary New Discharge Prescriptions: No Action Fluticasone Nasal [place] [Flonase Nasal [place]] 1 spr EA NOSTRIL DAILY Lisinopril [Zestril] 5 mg PO DAILY Aspirin 81 mg PO DAILY Clopidogrel [Plavix] 75 mg PO DAILY Atorvastatin Calcium [Lipitor] 40 mg PO DAILY Discharge Medication List Fluticasone Nasal [place] [Flonase Nasal [place]] 1 spr EA NOSTRIL DAILY 07/23/16 [History] Lisinopril [Zestril] 5 mg PO DAILY 05/11/19 [History] Aspirin 81 mg PO DAILY 05/16/19 [History] Clopidogrel [Plavix] 75 mg PO DAILY 06/02/19 [History] Atorvastatin Calcium [Lipitor] 40 mg PO DAILY 07/19/19 [History] Follow up Appointment(s)/Referral(s): Ronel Shahid MD [STAFF PHYSICIAN] - 1 Week Seth Bass MD [Primary Care Provider] - 1-2 days David Mercado MD [STAFF PHYSICIAN] - 1 Week Patient Instructions/Handouts: Diet for Stomach Ulcers and Gastritis (ED), Iron Deficiency Anemia (DC) Discharge Disposition: TRANSFER TO SHORT TERM HOSP
== END 2019-07-27 16:12 | disposition short-term general hospital (02) | DRG 250 ==
LOC: EC 15:28 → 3SCARD 16:53 → 2SICU 07-20 12:37 → 3SCARD 07-24 06:01 → 2SICU 07-25 10:54
PROVIDERS: ADMIT Hospitalist; ATTEND Hospitalist
PROC: 30233N1 Transfusion of Nonautologous Red Blood Cells into Peripheral Vein, Percutaneous Approach (ICD-10-PCS; 2019-07-19)
PROC: 0DB98ZX Excision of Duodenum, Via Natural or Artificial Opening Endoscopic, Diagnostic (ICD-10-PCS; 2019-07-23)
PROC: 0DB78ZX Excision of Stomach, Pylorus, Via Natural or Artificial Opening Endoscopic, Diagnostic (ICD-10-PCS; 2019-07-23)
PROC: 0DBN8ZX Excision of Sigmoid Colon, Via Natural or Artificial Opening Endoscopic, Diagnostic (ICD-10-PCS; 2019-07-23)
PROC: B2111ZZ Fluoroscopy of Multiple Coronary Arteries using Low Osmolar Contrast (ICD-10-PCS; 2019-07-25)
PROC: 02703ZZ Dilation of Coronary Artery, One Artery, Percutaneous Approach (ICD-10-PCS; principal; 2019-07-25 09:20)
PROC: 4A023N7 Measurement of Cardiac Sampling and Pressure, Left Heart, Percutaneous Approach (ICD-10-PCS; 2019-07-25 09:20)
PROC: B246ZZ4 Ultrasonography of Right and Left Heart, Transesophageal (ICD-10-PCS; 2019-07-26)
PROC: B54DZZZ Ultrasonography of Bilateral Lower Extremity Veins (ICD-10-PCS; 2019-07-26)
DX: I21.4 Non-ST elevation (NSTEMI) myocardial infarction (principal); I50.21 Acute systolic (congestive) heart failure; J44.1 Chronic obstructive pulmonary disease with (acute) exacerbation; K86.1 Other chronic pancreatitis; Z71.6 Tobacco abuse counseling; F17.210 Nicotine dependence, cigarettes, uncomplicated; I08.1 Rheumatic disorders of both mitral and tricuspid valves; I11.0 Hypertensive heart disease with heart failure; I25.10 Atherosclerotic heart disease of native coronary artery without angina pectoris; I25.5 Ischemic cardiomyopathy; I27.29 Other secondary pulmonary hypertension; I65.23 Occlusion and stenosis of bilateral carotid arteries; I70.213 Atherosclerosis of native arteries of extremities with intermittent claudication, bilateral legs; K22.70 Barrett's esophagus without dysplasia; K29.70 Gastritis, unspecified, without bleeding; K44.9 Diaphragmatic hernia without obstruction or gangrene; K57.30 Diverticulosis of large intestine without perforation or abscess without bleeding; K63.5 Polyp of colon; K64.8 Other hemorrhoids; Z79.02 Long term (current) use of antithrombotics/antiplatelets; Z79.82 Long term (current) use of aspirin; Z79.899 Other long term (current) drug therapy; Z82.49 Family history of ischemic heart disease and other diseases of the circulatory system; D50.9 Iron deficiency anemia, unspecified; E78.5 Hyperlipidemia, unspecified; Z95.820 Peripheral vascular angioplasty status with implants and grafts; H53.001 Unspecified amblyopia, right eye; Z87.820 Personal history of traumatic brain injury; F10.21 Alcohol dependence, in remission; Z60.2 Problems related to living alone; Z86.14 Personal history of Methicillin resistant Staphylococcus aureus infection; Z91.81 History of falling
CPT/HCPCS: 36415; 36430; 43239; 45331; 71045; 71260; 74177; 76604; 80048; 80053; 80061; 80074; 81001; 82150; 82272; 82607; 82728; 82747; 83036; 83540; 83550; 83690; 83735; 83883; 83921; 84134; 84165; 84443; 84484; 85025; 85027; 85045; 85379; 85610; 85730; 86334; 86850; 86900; 86901; 86920; 87070; 88305; 92920; 93005; 93306; 93312; 93320; 93325; 93458; 93880; 93970; 96361; 96374; 99285

== ENCOUNTER 2020-06-11 09:45 | Day surgery (SDC) | payer MEDICARE, OTHER ==
[2020-06-05 11:34] VITALS: BMI 17.7
[~2020-06-11 09:45] MED LIST changes: -ALPRAZolam 0.25 MG TAB PO PRN; -ASPIRIN 325 MG TAB PO STA
[2020-06-11 10:26] VITALS: RESP 16; TEMP 98.6
[2020-06-11] MEDS ORDERED: LIDOCAINE 1% INJ 10MG/ML (20 ML MDV) SQ ONE (10:52)
[2020-06-11] MEDS ORDERED: MIDAZOLAM 2 MG/2 ML VIAL IV ONE (10:53)
[2020-06-11] MEDS ORDERED: IOPAMIDOL-250 100ML BTL INTRAARTER ONE (10:58)
[2020-06-11] MEDS ORDERED: IOPAMIDOL-370 50ML BTL INJ ONE (10:59)
[2020-06-11] MEDS ORDERED: CLOPIDOGREL 75 MG TAB PO ONE (11:53)
[2020-06-11] MEDS ORDERED: PROTAMINE SULFATE 10 MG/ML 5 ML VIAL IV ONE (11:55)
--- NOTE | 2020-06-11 12:13 | P.OP ---
Date of Procedure: 06/11/20 Preoperative Diagnosis: Bilateral lower extremity claudication Postoperative Diagnosis: 1. Bilateral lower extremity claudication 2. 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 Left external iliac artery stenosis >90% 4. Left superficial femoral artery multiple areas of stenosis with greatest being 90% Procedure(s) Performed: 1. Aortogram with bilateral lower extremity runoff 2. Bilateral external iliac artery percutaneous transluminal balloon angioplasty 3. Bilateral external iliac artery percutaneous transluminal stenting with 7 x 20 mm stent for the right and 7 x 30 mm stent on the left 4. Ultrasound-guided right common femoral artery access Implants: 7 x 30 mm absolute Pro self-expanding stent in the left external iliac and common iliac artery 7 x 20 mm ever Flex self-expanding stent in the right external iliac artery Anesthesia: local, other (Moderate conscious sedation 57 minutes) Surgeon: Osmani Martinez Estimated Blood Loss (ml): 5 Pathology: none sent Condition: stable Disposition: other (Outpatient) Indications for Procedure: 70-year-old gentleman who is well known to the office presents for his 6 month evaluation and results from his lower extremity arterial Doppler which demonstrated significant change in ABIs bilaterally. He did previously have disease in his left lower extremity at the SFA and he presents today for aortogram with bilateral lower extremity runoff. We did discuss possible options of balloon angioplasty and stenting of his iliacs if there is any significant disease. Description of Procedure: After written and informed consent was obtained the patient all risks benefits competitions were described the patient is brought to the Doggy Daycare Activities Director and laid in a supine position. The area of the groins were prepped and draped in usual sterile fashion. Procedure was performed under local and conscious sedation which was monitored with continuous EKG and pulse ox monitoring. Utilizing ultrasound the right common femoral artery was visualized shown to have some calcific disease but otherwise patent. Under ultrasound guidance the artery was cannulated and utilizing Seldinger technique a 5-[place] sheath was placed. 035 Glidewire was then placed into the infrarenal aorta followed by pigtail catheter. Aortogram was then obtained followed by runoffs of the lower extremities. There was significant disease noted on bilateral external iliac arteries and therefore 035 Glidewire advantage was placed in an up and over fashion into the left external iliac artery and down the common femoral artery. A 5-[place] sheath was then removed and replaced with a 6-[place] Raabe sheath. Patient was administered heparin and followed with ACTs. Percutaneous transluminal balloon angioplasty was then performed with a 5 x 40 mm balloon of the left external iliac artery normal fashion. This was followed by a 7 x 30 mm self-expanding stent. Completion angiogram was then performed demonstrating complete resolution of the stenosis. Catheter was then withdrawn into the right external iliac artery and retrograde angiogram was obtained demonstrating significant stenosis in the right external iliac artery just after the takeoff. Once again a 5 x 40 mm balloon was utilized for balloon angioplasty followed by a 7 x 20 mm self-expanding stent. Postdilatation was then performed with a 7 x 20 mm balloon and final angiogram demonstrated a complete resolution of the stenosis. All guidewires and catheters were then removed and pressure was held for hemostasis. Hemostasis was assured and patient was sent back to recovery. Plan - Discharge Summary Discharge Rx Participant: Yes New Discharge Prescriptions: No Action RX: Fluticasone Nasal [place] [Flonase Nasal [place]] 1 - 2 spr EA NOSTRIL BID RX: Aspirin 81 mg PO DAILY Clopidogrel [Plavix] 75 mg PO DAILY Metoprolol Succinate (ER) [Toprol Xl] 50 mg PO W/SUPPER Ferrous Sulfate [Feosol] 325 mg PO DAILY Ascorbic Acid [Vitamin C] 500 mg PO DAILY Metoprolol Succinate (ER) [Toprol Xl] 100 mg PO QAM Pantoprazole Sodium [Protonix] 40 mg PO BID lisinopriL [Prinivil] 20 mg PO DAILY Atorvastatin [Lipitor] 80 mg PO HS Multivit-Min/FA/Lycopen/Lutein [Centrum Silver Tablet] 1 each PO W/LUNCH Discharge Medication List RX: Fluticasone Nasal [place] [Flonase Nasal [place]] 1 - 2 spr EA NOSTRIL BID 07/23/16 [History] RX: Aspirin 81 mg PO DAILY 05/16/19 [History] Clopidogrel [Plavix] 75 mg PO DAILY 06/02/19 [History] Ascorbic Acid [Vitamin C] 500 mg PO DAILY 06/05/20 [History] Atorvastatin [Lipitor] 80 mg PO HS 06/05/20 [History] Ferrous Sulfate [Feosol] 325 mg PO DAILY 06/05/20 [History] Metoprolol Succinate (ER) [Toprol Xl] 50 mg PO W/SUPPER 06/05/20 [History] Metoprolol Succinate (ER) [Toprol Xl] 100 mg PO QAM 06/05/20 [History] Multivit-Min/FA/Lycopen/Lutein [Centrum Silver Tablet] 1 each PO W/LUNCH 06/05/20 [History] Pantoprazole Sodium [Protonix] 40 mg PO BID 06/05/20 [History] lisinopriL [Prinivil] 20 mg PO DAILY 06/05/20 [History] Follow up Appointment(s)/Referral(s): Osmani Martinez DO [STAFF PHYSICIAN] - 2 Weeks
--- NOTE | 2020-06-11 12:55 | IR ---
EXAMINATION TYPE: IR stent intravas non coronary DATE OF EXAM: 06/11/2020 CLINICAL HISTORY: Left leg pain. Peripheral arterial disease. TECHNIQUE: Fluoroscopy. COMPARISON: None. FINDINGS: Fluoroscopic guidance was provided during procedure performed by Dr. Martinez. A total of 10 minutes 18 seconds of fluoroscopic time was utilized during the procedure and multiple cine runs a re acquired. Please refer to procedure note for further details. IMPRESSION: As Above.
[2020-06-11 15:17] VITALS: BP 110/58; PULSE 76
== END 2020-06-11 17:35 | disposition home or self-care (01) ==
LOC: CATHCVL 09:45
PROVIDERS: ATTEND Surgery
DX: I70.213 Atherosclerosis of native arteries of extremities with intermittent claudication, bilateral legs (principal); I70.8 Atherosclerosis of other arteries
CPT/HCPCS: 37221; 75625; 75716; 85347; C1769 ×5; C1894 ×2; C1876 ×2; C1725; J2250; J2720; J2001; J1644; Q9966; Q9967

== ENCOUNTER 2020-08-02 11:45 | Inpatient (IN) | payer MEDICARE, OTHER ==
[2020-08-02] MEDS ORDERED: NITROGLYCERIN OINT 1 INCH/GM PACKET TOPICAL STA (11:59)
[2020-08-02] MEDS ORDERED: ASPIRIN 81 MG PO STA (11:59)
--- NOTE | 2020-08-02 12:06 | ED ---
General Adult HPI - General Chief complaint: Chest Pain Stated complaint: Chest Pain Time Seen by Provider: 08/02/20 11:45 Source: patient, EMS, RN notes reviewed, old records reviewed Mode of arrival: EMS Limitations: no limitations - History of Present Illness Initial comments: This is a 70-year-old male who has a past medical history significant for high blood pressure high cholesterol and smoking. Patient also states he has a cardiac history with an [place] in the past. Patient states he started having chest pain at 2:00 in the morning she denies any radiation of the pain. Patient states he also has some shortness of breath associated with the pain. Patient states the pain lasts about 30 minutes at a time and it does get worse with exertion. Patient denies any recent fever chills or cough per patient denies abdominal pain patient denies nausea vomiting diarrhea. Patient denies headache patient denies numbness weakness patient denies lightheadedness dizziness. Patient denies any calf swelling or calf tenderness. - Related Data Home Medications Medication Instructions Recorded Confirmed Fluticasone Nasal Bode [Flonase 1 - 2 spr EA NOSTRIL BID 07/23/16 08/02/20 Nasal Bode] Aspirin 81 mg PO DAILY 05/16/19 08/02/20 Clopidogrel [Plavix] 75 mg PO DAILY 06/02/19 08/02/20 Ascorbic Acid [Vitamin C] 500 mg PO DAILY 06/05/20 08/02/20 Atorvastatin [Lipitor] 80 mg PO HS 06/05/20 08/02/20 Ferrous Sulfate [Feosol] 325 mg PO DAILY 06/05/20 08/02/20 Metoprolol Succinate (ER) [Toprol 150 mg PO HS 06/05/20 08/02/20 Xl] Multivit-Min/FA/Lycopen/Lutein 1 tab PO W/LUNCH 06/05/20 08/02/20 [Centrum Silver Tablet] Pantoprazole Sodium [Protonix] 40 mg PO BID 06/05/20 08/02/20 lisinopriL [Prinivil] 20 mg PO DAILY 06/05/20 08/02/20 Allergies Allergy/AdvReac Type Severity Reaction Status Date / Time No Known Allergies Allergy Verified 08/02/20 12:55 Review of Systems ROS Statement: Those systems with pertinent positive or pertinent negative responses have been documented in the HPI. ROS Other: All systems not noted in ROS Statement are negative. Past Medical History Past Medical History: Coronary Artery Disease (CAD), Chest Pain / Angina, COPD, Hyperlipidemia, Hypertension, Myocardial Infarction ([place]), Vascular Disorder Additional Past Medical History / Comment(s): extreme rufus leg pain with walking and resting, Hx sinus problems, 2008 fell down 25 steps- broke nose and had a concussion, rt lazy eye, hx pancreatitis, Last Myocardial Infarction Date:: 07/19/19 History of Any Multi-Drug Resistant Organisms: None Reported Past Surgical History: Heart Catheterization With Stent, Hernia Repair Additional Past Surgical History / Comment(s): Bilateral inguinal hernias, tooth extractions, stent in right leg to his superficial femoral artery placed by Dr. Sanchez in May 2019. "heart valves cleaned out at [facility]" cardiac stents x4 Past Anesthesia/Blood Transfusion Reactions: Motion Sickness Additional Past Anesthesia/Blood Transfusion Reaction / Comment(s): . Past Psychological History: No Psychological Hx Reported Smoking Status: Current every day smoker Past Alcohol Use History: None Reported Past Drug Use History: None Reported - Past Family History Mother Family Medical History: No Reported History General Exam - General Exam Comments Initial Comments: GENERAL: Patient is well-developed and well-nourished. Patient is nontoxic and well- hydrated and is in mild distress. ENT: Neck is soft and supple. No significant lymphadenopathy is noted. Oropharynx is clear. Moist mucous membranes. Neck has full range of motion without eliciting any pain. EYES: The sclera were anicteric and conjunctiva were pink and moist. Extraocular movements were intact and pupils were equal round and reactive to light. Eyelids were unremarkable. PULMONARY: Unlabored respirations. Good breath sounds bilaterally. No audible rales rhonchi or wheezing was noted. CARDIOVASCULAR: There is a regular rate and rhythm without any murmurs gallops or rubs. ABDOMEN: Soft and nontender with normal bowel sounds. SKIN: Skin is clear with no lesions or rashes and otherwise unremarkable. NEUROLOGIC: Patient is alert and oriented x3. Cranial nerves II through XII are grossly intact. Motor and sensory are also intact. Normal speech, volume and content. Symmetrical smile. MUSCULOSKELETAL: Normal extremities with adequate strength and full range of motion. LYMPHATICS: No significant lymphadenopathy is noted PSYCHIATRIC: Normal psychiatric evaluation. Limitations: no limitations Course Vital Signs 08/02/20 08/02/20 11:47 12:47 Temperature 98.3 F Pulse Rate 88 79 Respiratory 18 18 Rate Blood Pressure 139/65 121/60 O2 Sat by Pulse 96 100 Oximetry Medical Decision Making - Medical Decision Making EKG shows normal sinus rhythm at 86 bpm IA interval is 156 QRS is 92 QT interval 354 QTC is [address] segment elevation or depression. Patient's chest x-ray shows no acute abnormality. Patient was given aspirin and Nitropaste emergency department when I went back into reevaluate the patient he was pain-free. I started the patient on heparin. I spoke with Dr. Hoyt agreed to admit the patient admitted the patient I consult to cardiology continued heparin and aspirin Nitropaste on the floor. - Lab Data Result diagrams: 08/02/20 12:06 08/02/20 12:06 Lab Results 08/02/20 08/02/20 08/02/20 Range/Units 12:06 12:06 12:06 WBC 12.2 H (3.8-10.6) k/uL RBC 3.20 L (4.30-5.90) m/uL Hgb 10.1 L (13.0-17.5) gm/dL Hct 30.4 L (39.0-53.0) % MCV 94.9 (80.0-100.0) fL MCH 31.7 (25.0-35.0) pg MCHC 33.4 (31.0-37.0) g/dL RDW 12.1 (11.5-15.5) % Plt Count 452 H (150-450) k/uL Neutrophils % 85 % Lymphocytes % 7 % Monocytes % 6 % Eosinophils % 1 % Basophils % 0 % Neutrophils # 10.3 H (1.3-7.7) k/uL Lymphocytes # 0.9 L (1.0-4.8) k/uL Monocytes # 0.8 (0-1.0) k/uL Eosinophils # 0.1 (0-0.7) k/uL Basophils # 0.0 (0-0.2) k/uL PT 9.9 (9.0-12.0) sec INR 0.9 (<1.2) APTT 24.1 (22.0-30.0) sec Sodium 122 L (137-145) mmol/L Potassium 4.5 (3.5-5.1) mmol/L Chloride 92 L (98-107) mmol/L Carbon Dioxide 23 (22-30) mmol/L Anion Gap 7 mmol/L BUN 15 (9-20) mg/dL Creatinine 0.74 (0.66-1.25) mg/dL Est GFR (CKD-EPI)AfAm >90 (>60 ml/min/1.73 sqM) Est GFR (CKD-EPI)NonAf >90 (>60 ml/min/1.73 sqM) Glucose 98 (74-99) mg/dL Calcium 9.2 (8.4-10.2) mg/dL Magnesium 1.8 (1.6-2.3) mg/dL Total Bilirubin 0.5 (0.2-1.3) mg/dL AST 27 (17-59) U/L ALT 16 (4-49) U/L Alkaline Phosphatase 75 (38-126) U/L Troponin I (0.000-0.034) ng/mL Total Protein 6.6 (6.3-8.2) g/dL Albumin 4.0 (3.5-5.0) g/dL 08/02/20 Range/Units 12:06 WBC (3.8-10.6) k/uL RBC (4.30-5.90) m/uL Hgb (13.0-17.5) gm/dL Hct (39.0-53.0) % MCV (80.0-100.0) fL MCH (25.0-35.0) pg MCHC (31.0-37.0) g/dL RDW (11.5-15.5) % Plt Count (150-450) k/uL Neutrophils % % Lymphocytes % % Monocytes % % Eosinophils % % Basophils % % Neutrophils # (1.3-7.7) k/uL Lymphocytes # (1.0-4.8) k/uL Monocytes # (0-1.0) k/uL Eosinophils # (0-0.7) k/uL Basophils # (0-0.2) k/uL PT (9.0-12.0) sec INR (<1.2) APTT (22.0-30.0) sec Sodium (137-145) mmol/L Potassium (3.5-5.1) mmol/L Chloride (98-107) mmol/L Carbon Dioxide (22-30) mmol/L Anion Gap mmol/L BUN (9-20) mg/dL Creatinine (0.66-1.25) mg/dL Est GFR (CKD-EPI)AfAm (>60 ml/min/1.73 sqM) Est GFR (CKD-EPI)NonAf (>60 ml/min/1.73 sqM) Glucose (74-99) mg/dL Calcium (8.4-10.2) mg/dL Magnesium (1.6-2.3) mg/dL Total Bilirubin (0.2-1.3) mg/dL AST (17-59) U/L ALT (4-49) U/L Alkaline Phosphatase (38-126) U/L Troponin I <0.012 (0.000-0.034) ng/mL Total Protein (6.3-8.2) g/dL Albumin (3.5-5.0) g/dL Critical Care Time Critical Care Time: Yes Total Critical Care Time: 35 Disposition Clinical Impression: Unstable angina pectoris Disposition: ADMITTED IP TO THIS HOSP Referrals: Seth Bass MD [Primary Care Provider] - 1-2 days Time of Disposition: 13:34
[2020-08-02 12:18] LABS: Basophils % (A) 0 %; Eosinophils # (A) 0.1 k/uL (0-0.7); Eosinophils % (A) 1 %; HCT 30.4 % (39.0-53.0); HGB 10.1 gm/dL (13.0-17.5); Lymphocytes # (A) 0.9 k/uL (1.0-4.8); Lymphocytes % (A) 7 %; MCH 31.7 pg (25.0-35.0); MCHC 33.4 g/dL (31.0-37.0); MCV 94.9 fL (80.0-100.0); Mean Platelet Volume 5.9; Monocytes # (A) 0.8 k/uL (0-1.0); Monocytes % (A) 6 %; Neutrophils # (A) 10.3 k/uL (1.3-7.7); Neutrophils % (A) 85 %; Platelet Count 452 k/uL (150-450); RDW 12.1 % (11.5-15.5); WBC 12.2 k/uL (3.8-10.6)
--- NOTE | 2020-08-02 12:24 | XR ---
EXAMINATION TYPE: XR chest 2V DATE OF EXAM: 08/02/2020 COMPARISON: 07/23/2019 INDICATION: Chest pain TECHNIQUE: Frontal and lateral views of the chest are obtained. FINDINGS: The heart size is normal. The pulmonary vasculature is normal. The lungs are clear. There is hyperinflation with an increased retrosternal airspace and increased A P diameter compatible COPD IMPRESSION: 1. No acute pulmonary process. 2. COPD
[2020-08-02 12:27] LABS: ALT 16 U/L (4-49); AST 27 U/L (17-59); African American GFR (CKD) >90 (>60 ml/min/1.73 sqM); Alkaline Phosphatase 75 U/L (38-126); Anion Gap 7 mmol/L; Blood Urea Nitrogen 15 mg/dL (9-20); Calcium 9.2 mg/dL (8.4-10.2); Carbon Dioxide 23 mmol/L (22-30); Chloride 92 mmol/L (98-107); Glucose 98 mg/dL (74-99); Magnesium 1.8 mg/dL (1.6-2.3); Non-African American GFR(CKD) >90 (>60 ml/min/1.73 sqM); Potassium 4.5 mmol/L (3.5-5.1); Sodium 122 mmol/L (137-145); Total Bilirubin 0.5 mg/dL (0.2-1.3); Total Protein 6.6 g/dL (6.3-8.2)
[2020-08-02 12:28] LABS: INR 0.9 (<1.2); Partial Thromboplastin Time 24.1 sec (22.0-30.0); Prothrombin Time 9.9 sec (9.0-12.0)
[2020-08-02] MEDS ORDERED: HEPARIN SODIUM,PORCINE 5,000 UNIT/ML 1 ML VIAL IV ONE (12:52)
[2020-08-02] MEDS: HEPARIN SOD,PORK IN 0.45% NACL 25,000 UNIT in 0.45% NACL 1 250ML.BAG IV SCH (13:18)
[2020-08-02] MEDS ORDERED: NITROGLYCERIN SL TABS 0.4 MG TAB SUBLINGUAL PRN (13:34)
[2020-08-02] MEDS: NITROGLYCERIN OINT 1 INCH/GM PACKET TOPICAL SCH ×2 (18:17→23:30)
[2020-08-02] MEDS: PANTOPRAZOLE 40 MG TABLET PO SCH (18:28)
[2020-08-02] MEDS: METOPROLOL SUCCINATE (ER) 100 MG TAB.ER.24H PO SCH ×2 (18:28→18:37)
[2020-08-02] MEDS: ATORVASTATIN 80 MG TAB PO SCH (18:28)
[2020-08-02] MEDS ORDERED: ACETAMINOPHEN TAB 325 MG TAB PO PRN (21:13)
[2020-08-02] MEDS ORDERED: MORPHINE SULFATE 4 MG/ML SYRINGE IVP PRN (21:35)
[2020-08-02] MEDS ORDERED: RX INFO: IV CONTRAST WAS GIVEN 1 EACH MISC MISCELLANE PRN (21:52)
--- NOTE | 2020-08-02 22:12 | P.HPIM ---
History of Present Illness H&P Date: 08/02/20 Chief Complaint: Chest pain History of presenting complaint: This is a pleasant [address] Bass. 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 BALDOMERO Shahid. Patient was here in July 2019. Was then admitted with acute non-ST elevation MS. Cardiac cath showed severe triple-vessel disease. Heavily calcified vessels. Patient was transferred to [facility]. Patient cannot tell be the details but IMPALA was used. Had a stent placed in the left axilla. Also valves were cleaned out. Patient now follows with Dr. BALDOMERO Shahid. Patient today was woken up about 2 AM with a sharp pain in the middle of the chest and the precordial area. Persisted decided come to the hospital. Elk weak. Short of breath. No fever no chills. The pain did not radiate. After several hours patient's pain is still present. Troponin was negative. Patient's pain is worse with a deep breath. On IV heparin. Patient does occasionally get short of breath. Review of systems: GEN.: Tired EYES: None HEENT: None NECK: None RESPIRATORY: Intermittently short of breath CARDIOVASCULAR: As above GASTROINTESTINAL: None GENITOURINARY: None MUSCULOSKELETAL: None LYMPHATICS: None HEMATOLOGICAL: None PSYCHIATRY: None NEUROLOGICAL: None Social history: Smoked about 3 packs a day for more than 50 years. Was drinking excessive alcohol to about 6 years ago. 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 Lives alone. Physical examination: VITAL SIGNS: 98.1, 79, 16, 159/87, 98% room air GENERAL: BMI 17.1, laying in bed EYES: Pupils equal. Conjunctiva normal. HEENT: External appearance of nose and ears normal, oral cavity grossly normal. NECK: JVD not raised; masses not palpable. HEART: First and second heart sounds are normal; no edema. LUNGS: Respiratory rate increased; diminished breath sounds. ABDOMEN: Soft, nontender, liver spleen not palpable, no masses palpable. PSYCH: Alert and oriented x3; mood and affect anxious MUSCULAR skeletal: Loss of subcutaneous fat. NEUROLOGICAL: Cranial nerves grossly intact; no facial asymmetry, power and sensation grossly intact. LYMPHATICS: No lymph nodes palpable in the axilla and neck INVESTIGATIONS, reviewed in the clinical context: EKG tracing personally reviewed by me-tall peaked T waves. Chest x-ray film personally reviewed by me-hyperinflated, prominent pulmonary artery White count 12.2 hemoglobin 10.1 platelets 452 sodium 122 potassium 4.5 crit 0.74 Assessment: -Possible unstable angina in a patient with known coronary artery disease. -Rule out PE -Hyponatremia. Patient does drink excessive water at home. -COPD in a current smoker -Chronic nicotine dependence patient cigarette smoker -Chronic congestive heart failure from systolic dysfunction EF 25-30%, ischemic cardiomyopathy, -Moderate secondary pulmonary hypertension from COPD and possibly CHF -Sigmoid diverticulosis and colonic polyp. Plan: Patient's currently on IV heparin. On the CT scan of the chest with PE protocol to rule out PE. Home medications to continue. We'll put the patient on a fluid restriction of 1500 mL a day. Care was discussed with the patient. Questions answered. Patient also on aspirin and Plavix and Lipitor. Past Medical History Past Medical History: Coronary Artery Disease (CAD), Chest Pain / Angina, Heart Failure, COPD, Hyperlipidemia, Hypertension, Myocardial Infarction ([place]), V ascular Disorder Additional Past Medical History / Comment(s): Ishemic cardiomyopathy, pulmonary htn, mitral valve regurgitaion, caratid artery disease, MS/anemia, PVD, bilate ral leg claudication/pain with walking/resting, past pancreatitis, R eye "lazy and poor vision", diverticular disease, benign colon polyps, sinus problems. Last Myocardial Infarction Date:: 07/19/19 History of Any Multi-Drug Resistant Organisms: None Reported Past Surgical History: Heart Catheterization With Stent, Hernia Repair Additional Past Surgical History / Comment(s): 06/11/20 abdominal aortagram with bilateral illiac artery PTBA/stents, past R SFA stent, several aortagrams/runoffs, 07/25/19 cardiac cath and sent to [facility] for possible intervention, R axillary stent at [facility] but pt states it was placed in his groin/[place], L arm artery stent d/t injury during procedure at [facility], pt states while at [facility] they "cleaned my heart valves out", bilateral inguinal hernia repairs, EGD, colonoscopy/benign polypectomies Past Anesthesia/Blood Transfusion Reactions: Motion Sickness Additional Past Anesthesia/Blood Transfusion Reaction / Comment(s): Pt has received blood in past without reaction. Date of Last Stent Placement:: 07/2019 Smoking Status: Current every day smoker - Past Family History Mother Family Medical History: Dementia Father Family Medical History: Congestive Heart Failure (CHF), Myocardial Infarction ([place]) Medications and Allergies Home Medications Medication Instructions Recorded Confirmed Type Fluticasone Nasal [place] [Flonase 1 - 2 spr EA NOSTRIL BID 07/23/16 08/02/20 History Nasal Norco] Aspirin 81 mg PO DAILY 05/16/19 08/02/20 History Clopidogrel [Plavix] 75 mg PO DAILY 06/02/19 08/02/20 History Ascorbic Acid [Vitamin C] 500 mg PO DAILY 06/05/20 08/02/20 History Atorvastatin [Lipitor] 80 mg PO HS 06/05/20 08/02/20 History Ferrous Sulfate [Feosol] 325 mg PO DAILY 06/05/20 08/02/20 History Metoprolol Succinate (ER) [Toprol 150 mg PO HS 06/05/20 08/02/20 History Xl] Multivit-Min/FA/Lycopen/Lutein 1 tab PO W/LUNCH 06/05/20 08/02/20 History [Centrum Silver Tablet] Pantoprazole Sodium [Protonix] 40 mg PO BID 06/05/20 08/02/20 History lisinopriL [Prinivil] 20 mg PO DAILY 06/05/20 08/02/20 History Acetaminophen Tab [Tylenol] 325 tab PO TID 08/02/20 08/02/20 History Allergies Allergy/AdvReac Type Severity Reaction Status Date / Time No Known Allergies Allergy Verified 08/02/20 12:55 Physical Exam Vitals: Vital Signs Temp Pulse Pulse Resp BP BP Pulse Ox 08/02/20 19:38 98.1 F 79 16 159/87 98 08/02/20 15:33 98.0 F 83 18 119/62 100 08/02/20 15:32 100 08/02/20 12:47 79 18 121/60 100 08/02/20 11:47 98.3 F 88 18 139/65 96 Intake and Output 08/02/20 08/02/20 08/02/20 06:59 14:59 22:59 Intake Total 481.929 Output Total 675 Balance -193.071 Intake: IV 240 .9 @ 20 240 Intake, IV Titration 41.929 Amount Heparin Sod,Pork in 0.45% 41.929 NaCl 25,000 unit In 0.45 % NaCl 1 250ml.bag @ 12 UNITS/KG/HR 5.77 mls/hr IV .Q24H [facility] Rx#: [id number] Oral 200 Output: Urine 675 Other: Voiding Method Toilet Urinal Weight 48.081 kg 48.081 kg Results CBC & Chem 7: 08/02/20 12:06 08/02/20 12:06 Labs: Abnormal Lab Results - Last 24 Hours (Table) 08/02/20 08/02/20 08/02/20 Range/Units 12:06 12:06 19:20 WBC 12.2 H (3.8-10.6) k/uL RBC 3.20 L (4.30-5.90) m/uL Hgb 10.1 L (13.0-17.5) gm/dL Hct 30.4 L (39.0-53.0) % Plt Count 452 H (150-450) k/uL Neutrophils # 10.3 H (1.3-7.7) k/uL Lymphocytes # 0.9 L (1.0-4.8) k/uL APTT 33.5 H (22.0-30.0) sec Sodium 122 L (137-145) mmol/L Chloride 92 L (98-107) mmol/L Thrombosis Risk Factor Assmnt - Choose All That Apply Any of the Below Risk Factors Present?: Yes Each Factor Represents 1 point: Abnormal pulmonary function (COPD) Other Risk Factors: Yes Each Risk Factor Represents 2 Points: Age 61-74 years Other congenital or acquired thrombophilia - If yes, enter type in comment: No Thrombosis Risk Factor Assessment Total Risk Factor Score: 3 Thrombosis Risk Factor Assessment Level: Moderate Risk
--- NOTE | 2020-08-02 22:50 | CT ---
EXAMINATION TYPE: CT angio chest DATE OF EXAM: 08/02/2020 COMPARISON: 07/21/2019 HISTORY: SOB CT DLP: 184.9 mGycm Automated exposure control for dose reduction was used. CONTRAST: Performed with IV Contrast, patient injected with 70cc mL of Isovue 370. There are 3-D post processed images. There is some mild atelectasis at the lung bases. There is pulmonary emphysema at the lung apices. Th ere is mild pleural and pulmonary scarring at the lung apices. There is no mediastinal adenopathy. Th oracic aorta is atheromatous. There is no aneurysm or dissection. Heart size is normal. There is no p ericardial effusion. There is normal contrast opacification of the pulmonary arteries. There are no filling defects. There is mild thoracic kyphotic deformity. There is spurring of the endplates in the thoracic spine. There is slight anterior wedging of a few thoracic vertebra. IMPRESSION: No evidence of pulmonary embolism. There is some atelectasis at the lung bases. There is clearing of the pleural effusions compared to old exam. No suspicious pulmonary mass. Pulmonary emphysema with bilateral apical pleural and pulmonary scarring. Unchanged.
[2020-08-03 05:48] LABS: Cholesterol 95 mg/dL (<200); HDL Cholesterol 41 mg/dL (40-60); LDL Cholesterol,Calculated 42 mg/dL (0-99); Triglycerides 60 mg/dL (<150)
[2020-08-03] MEDS: PANTOPRAZOLE 40 MG TABLET PO SCH ×2 (06:34→17:08)
[2020-08-03] MEDS: NITROGLYCERIN OINT 1 INCH/GM PACKET TOPICAL SCH ×2 (06:34→10:04)
[2020-08-03] MEDS ORDERED: ASPIRIN 325 MG TAB PO SCH (09:00)
[2020-08-03] MEDS: CLOPIDOGREL 75 MG TAB PO SCH (10:03)
[2020-08-03] MEDS: lisinopriL 20 MG TAB PO SCH (10:03)
[2020-08-03] MEDS: FERROUS SULFATE 325 MG TAB PO SCH (10:04)
[2020-08-03] MEDS: ASCORBIC ACID 500 MG TAB PO SCH (10:04)
[2020-08-03] MEDS: ASPIRIN 81 MG PO SCH (10:16)
[2020-08-03 11:25] VITALS: BMI 16.5
[2020-08-03] MEDS: HEPARIN SOD,PORK IN 0.45% NACL 25,000 UNIT in 0.45% NACL 1 250ML.BAG IV SCH (12:47)
[2020-08-03] MEDS: MULTIVITAMINS, THERA 1 EACH TAB PO SCH (12:48)
[2020-08-03 14:21] LABS: African American GFR (CKD) >90 (>60 ml/min/1.73 sqM); Anion Gap 6 mmol/L; Blood Urea Nitrogen 11 mg/dL (9-20); Calcium 9.3 mg/dL (8.4-10.2); Carbon Dioxide 27 mmol/L (22-30); Chloride 98 mmol/L (98-107); Glucose 97 mg/dL (74-99); Non-African American GFR(CKD) >90 (>60 ml/min/1.73 sqM); Potassium 4.4 mmol/L (3.5-5.1); Sodium 131 mmol/L (137-145)
--- NOTE | 2020-08-03 14:29 | P.CRDCN ---
History of Present Illness History of present illness: HISTORY OF PRESENTING ILLNESS This is a pleasant 70-year-old male past medical history significant for coronary artery disease, ischemic cardiomyopathy, peripheral vascular disease, hypertension, dyslipidemia, chronic systolic heart failure, gastroesophageal reflux disease and chronic nicotine dependence. He follows in the office with Dr. Shahid. We have been asked to see in consultation for chest pain. He states he was woken from sleep yesterday with an intense pain in the midsternal region that radiated over to the left precordial area. It was described as a heavy pressure sensation associated with generalized weakness and mild dizziness. The discomfort did not radiate to the arm, back, neck or jaw. He denies associated shortness of breath, nausea, vomiting, diaphoresis or palpitations. His pain has been ongoing and persistent although has decreased in intensity when he gets morphine. His pain is exacerbated by deep palpation, movement of his torso or deep inspiration. In May 2019 he underwent bilateral iliac stenting as well as high risk and impella PCI of the LAD at [facility]. DIAGNOSTICS EKG reveals sinus mechanism with no acute ischemic changes. Chest xray underlying COPD with no acute cardiopulmonary process CTA is negative for pulmonary embolism, pulmonary emphysema with bilateral apical pleural and pulmonary scarring noted, no aortic aneurysm or dissection.. Laboratory reviewed, WBC 12.2, hemoglobin 10.1, platelets 452, sodium 131, potassium 4.4, creatinine 0.8, magnesium 1.8, cardiac enzymes negative 3, LDL 42 and HDL 41. Current cardiac medications include aspirin 81 mg daily, Plavix 75 mg daily, lisinopril 20 mg daily, atorvastatin 80 mg daily and Toprol 150 mg at bedtime. Most recent echocardiogram obtained in the office reveals impaired LV systolic function with ejection fraction 48% with inferior wall hypokinesia noticed. REVIEW OF SYSTEMS At the time of my exam: CONSTITUTIONAL: Denies fever or chills. CARDIOVASCULAR: Denies chest pain, shortness of breath, orthopnea, PND or palpitations. RESPIRATORY: Denies cough. GASTROINTESTINAL: Denies abdominal pain, diarrhea, constipation, nausea or vomiting. MUSCULOSKELETAL: Denies myalgias. NEUROLOGIC: Denies numbness, tingling or weakness. ENDOCRINE: Denies fatigue, weight change, polydipsia or polyurina. GENITOURINARY: Denies burning, hematuria or urgency with micturation. HEMATOLOGIC: Denies history of anemia or bleeding. PHYSICAL EXAMINATION Blood pressure 117/62 heart rate 78 afebrile and maintaining oxygen saturation on room air. CONSTITUTIONAL: No apparent distress. Frail. HEENT: Head is normocephalic. Pupils are equal, round. Sclerae anicteric. Mucous membranes of the mouth are moist. No JVD. No carotid bruit. CHEST EXAMINATION: Lungs are clear to auscultation. No chest wall tenderness is noted on palpation or with deep breathing. HEART EXAMINATION: Regular rate and rhythm. S1, S2 heard. No murmurs, gallops or rub. ABDOMEN: Soft, nontender. Positive bowel sounds. EXTREMITIES: 2+ peripheral pulses, no lower extremity edema and no calf tenderness. NEUROLOGIC EXAMINATION: Patient is awake, alert and oriented x3. ASSESSMENT Chest pain, pleuritic. Atypical for angina Coronary artery disease status post high risk PCI at [facility] July 2019 Ischemic cardiomyopathy Chronic systolic heart failure, clinically euvolemic Peripheral vascular disease status post bilateral iliac stenting Hypertension Dyslipidemia Chronic nicotine dependence COPD PLAN An acute coronary event has been ruled out. Pain is atypical and reproducible on palpation and with movement of his torso. No further cardiac workup needed at this time. Heparin infusion can be discontinued and he can be discharged home to follow-up in the office with Dr. Shahid in 1-2 weeks. Smoking cessation recommended. Thank you kindly for this consultation. Nurse Practitioner note has been reviewed, I agree with a documented findings and plan of care. Patient was seen and examined. Past Medical History Past Medical History: Coronary Artery Disease (CAD), Chest Pain / Angina, Heart Failure, COPD, Hyperlipidemia, Hypertension, Myocardial Infarction (PA), Vascular Disorder Additional Past Medical History / Comment(s): Ishemic cardiomyopathy, pulmonary htn, mitral valve regurgitaion, caratid artery disease, PA/anemia, PVD, bilateral leg claudication/pain with walking/resting, past pancreatitis, R eye "lazy and poor vision", diverticular disease, benign colon polyps, sinus problems. Last Myocardial Infarction Date:: 07/19/19 History of Any Multi-Drug Resistant Organisms: None Reported Past Surgical History: Heart Catheterization With Stent, Hernia Repair Additional Past Surgical History / Comment(s): 06/11/20 abdominal aortagram with bilateral illiac artery PTBA/stents, past R SFA stent, several aortagrams/runoffs, 07/25/19 cardiac cath and sent to [facility] for possible intervention, R axillary stent at [facility] but pt states it was placed in his groin/[place], L arm artery stent d/t injury during procedure at [facility], pt states while at [facility] they "cleaned my heart valves out", bilateral inguinal hernia repairs, EGD, colonoscopy/benign polypectomies Past Anesthesia/Blood Transfusion Reactions: Motion Sickness Additional Past Anesthesia/Blood Transfusion Reaction / Comment(s): Pt has received blood in past without reaction. Date of Last Stent Placement:: 07/2019 Smoking Status: Current every day smoker - Past Family History Mother Family Medical History: Dementia Father Family Medical History: Congestive Heart Failure (CHF), Myocardial Infarction (PA) Medications and Allergies Home Medications Medication Instructions Recorded Confirmed Type Fluticasone Nasal [place] [Flonase 1 - 2 spr EA NOSTRIL BID 07/23/16 08/02/20 History Nasal [place]] Aspirin 81 mg PO DAILY 05/16/19 08/02/20 History Clopidogrel [Plavix] 75 mg PO DAILY 06/02/19 08/02/20 History Ascorbic Acid [Vitamin C] 500 mg PO DAILY 06/05/20 08/02/20 History Atorvastatin [Lipitor] 80 mg PO HS 06/05/20 08/02/20 History Ferrous Sulfate [Feosol] 325 mg PO DAILY 06/05/20 08/02/20 History Metoprolol Succinate (ER) [Toprol 150 mg PO HS 06/05/20 08/02/20 History Xl] Multivit-Min/FA/Lycopen/Lutein 1 tab PO W/LUNCH 06/05/20 08/02/20 History [Centrum Silver Tablet] Pantoprazole Sodium [Protonix] 40 mg PO BID 06/05/20 08/02/20 History lisinopriL [Prinivil] 20 mg PO DAILY 06/05/20 08/02/20 History Acetaminophen Tab [Tylenol] 325 tab PO TID 08/02/20 08/02/20 History Allergies Allergy/AdvReac Type Severity Reaction Status Date / Time No Known Allergies Allergy Verified 08/02/20 12:55 Physical Exam Vitals: Vital Signs Temp Pulse Pulse Resp BP BP Pulse Ox 08/03/20 04:31 97.7 F 73 16 110/63 97 08/02/20 23:30 77 16 119/64 98 08/02/20 19:38 98.1 F 79 16 159/87 98 08/02/20 15:33 98.0 F 83 18 119/62 100 08/02/20 15:32 100 08/02/20 12:47 79 18 121/60 100 08/02/20 11:47 98.3 F 88 18 139/65 96 Intake and Output 08/02/20 08/03/20 08/03/20 22:59 06:59 14:59 Intake Total 481.929 Output Total 675 400 Balance -193.071 -400 Intake: IV 240 .9 @ 20 240 Intake, IV Titration 41.929 Amount Heparin Sod,Pork in 0.45% 41.929 NaCl 25,000 unit In 0.45 % NaCl 1 250ml.bag @ 12 UNITS/KG/HR 5.77 mls/hr IV .Q24H [facility] Rx#: [id number] Oral 200 Output: Urine 675 400 Other: Voiding Method Toilet Toilet Urinal Urinal # Voids 1 Weight 48.081 kg 46.4 kg Results 08/02/20 12:06 08/03/20 04:06 Cardiac Enzymes 08/02/20 08/02/20 08/02/20 Range/Units 12:06 12:06 14:56 AST 27 (17-59) U/L Troponin I <0.012 <0.012 (0.000-0.034) ng/mL 08/02/20 Range/Units 19:20 AST (17-59) U/L Troponin I <0.012 (0.000-0.034) ng/mL Coagulation 08/02/20 08/02/20 08/03/20 Range/Units 12:06 19:20 04:06 PT 9.9 (9.0-12.0) sec APTT 24.1 33.5 H 59.3 H (22.0-30.0) sec Lipids 08/03/20 Range/Units 04:06 Triglycerides 60 (<150) mg/dL Cholesterol 95 (<200) mg/dL HDL Cholesterol 41 (40-60) mg/dL CBC 08/02/20 Range/Units 12:06 WBC 12.2 H (3.8-10.6) k/uL RBC 3.20 L (4.30-5.90) m/uL Hgb 10.1 L (13.0-17.5) gm/dL Hct 30.4 L (39.0-53.0) % Plt Count 452 H (150-450) k/uL Comprehensive Metabolic Panel 08/02/20 Range/Units 12:06 Sodium 122 L (137-145) mmol/L Potassium 4.5 (3.5-5.1) mmol/L Chloride 92 L (98-107) mmol/L Carbon Dioxide 23 (22-30) mmol/L BUN 15 (9-20) mg/dL Creatinine 0.74 (0.66-1.25) mg/dL Glucose 98 (74-99) mg/dL Calcium 9.2 (8.4-10.2) mg/dL AST 27 (17-59) U/L ALT 16 (4-49) U/L Alkaline Phosphatase 75 (38-126) U/L Total Protein 6.6 (6.3-8.2) g/dL Albumin 4.0 (3.5-5.0) g/dL Current Medications Generic Name Dose Route Start Last Admin Trade Name Freq PRN Reason Stop Dose Admin Acetaminophen 650 mg 08/02/20 21:13 Acetaminophen Tab 325 Mg Tab PO Q6HR PRN Fever and/ or Pain Ascorbic Acid 500 mg 08/03/20 09:00 Ascorbic Acid 500 Mg Tab PO DAILY [facility] Aspirin 325 mg 08/03/20 09:00 Aspirin 325 Mg Tab PO DAILY [facility] Atorvastatin Calcium 80 mg 08/02/20 21:00 08/02/20 18:28 Atorvastatin 80 Mg Tab PO 80 mg HS LINDA Administration Clopidogrel Bisulfate 75 mg 08/03/20 09:00 Clopidogrel 75 Mg Tab PO DAILY [facility] Ferrous Sulfate 325 mg 08/03/20 09:00 Ferrous Sulfate 325 Mg Tab PO DAILY [facility] Heparin Sodium/Sodium Chloride 250 mls @ 5.77 mls/hr 08/02/20 13:00 08/02/20 20:34 25,000 unit/ Sodium Chloride IV 18.24 units/kg/hr .Q24H LINDA 8.77 mls/hr Titration Protocol 12 UNITS/KG/HR Lisinopril 20 mg 08/03/20 09:00 Lisinopril 20 Mg Tab PO DAILY [facility] Metoprolol Succinate 150 mg 08/02/20 17:30 08/02/20 18:37 Metoprolol Succinate (Er) 100 Mg Tab.Er.24h PO Not Given [facility] Miscellaneous Information 1 each 08/02/20 21:52 Rx Info: Iv Contrast Was Given 1 Each Misc MISCELLANE 08/04/20 21:53 DAILY PRN Per Protocol Morphine Sulfate 3 mg 08/02/20 21:35 08/02/20 21:46 Morphine Sulfate 4 Mg/Ml Syringe IVP 3 mg Q4H PRN Administration Moderate to Severe Pain Multivitamins 1 each 08/03/20 12:30 Multivitamins, Thera 1 Each Tab PO W/LUNCH [facility] Nitroglycerin 0.4 mg 08/02/20 13:34 Nitroglycerin Sl Tabs 0.4 Mg Tab SUBLINGUAL Q5M PRN Chest Pain Nitroglycerin 1 inch 08/02/20 18:00 08/03/20 06:34 Nitroglycerin Oint 1 Inch/Gm Packet TOPICAL 1 inch Q6HR LINDA Administration Pantoprazole Sodium 40 mg 08/02/20 17:30 08/03/20 06:34 Pantoprazole 40 Mg Tablet PO 40 mg AC-BID LINDA Administration Intake and Output 08/02/20 08/03/20 08/03/20 22:59 06:59 14:59 Intake Total 481.929 Output Total 675 400 Balance -193.071 -400 Intake: IV 240 .9 @ 20 240 Intake, IV Titration 41.929 Amount Heparin Sod,Pork in 0.45% 41.929 NaCl 25,000 unit In 0.45 % NaCl 1 250ml.bag @ 12 UNITS/KG/HR 5.77 mls/hr IV .Q24H [facility] Rx#: [id number] Oral 200 Output: Urine 675 400 Other: Voiding Method Toilet Toilet Urinal Urinal # Voids 1 Weight 48.081 kg 46.4 kg 08/02/20 12:06 08/02/20 12:06
[2020-08-03] MEDS: METOPROLOL SUCCINATE (ER) 100 MG TAB.ER.24H PO SCH (17:08)
[2020-08-03 19:52] VITALS: RESP 16
[2020-08-03] MEDS: ATORVASTATIN 80 MG TAB PO SCH (19:52)
--- NOTE | 2020-08-03 20:59 | P.PN ---
Progress Note - Text Progress Note Date: 08/03/20 Chief Complaint: Chest pain History of presenting complaint: This is a pleasant [address] Bass. Follows with inventory specialist manager Dr. BALDOMERO Shahid. Patient was here in July 2019. Was then admitted with acute non-ST elevation DC. Cardiac cath showed severe triple-vessel disease. Heavily calcified vessels. Patient was transferred to [facility]. Patient cannot tell be the details but IMPALA was used. Had a stent placed in the left axilla. Also valves were cleaned out. Patient now follows with Dr. BALDOMERO Shahid. Patient today was woken up about 2 AM with a sharp pain in the middle of the chest and the precordial area. decided come to the hospital. [place] weak. Short of breath. No fever no chills. The pain did not radiate. After several hours patient's pain is still present. Troponin was negative. Patient's pain is worse with a deep breath. On IV heparin. Patient does occasionally get short of breath. Today-sitting up in bed. Some chest pain present. Decreased pleuritic nature. DC ruled out. PE ruled out. Review of systems: Was done for constitutional, cardiovascular, GI, pulmonary. relevant finding as above Active Medications Acetaminophen (Acetaminophen Tab 325 Mg Tab) 650 mg PO Q6HR PRN PRN Reason: Fever and/ or Pain Last Admin: 08/03/20 19:52 Dose: 650 mg Documented by: Ascorbic Acid (Ascorbic Acid 500 Mg Tab) 500 mg PO DAILY [facility] Last Admin: 08/03/20 10:04 Dose: 500 mg Documented by: Aspirin (Aspirin 81 Mg) 81 mg PO DAILY [facility] Last Admin: 08/03/20 10:16 Dose: Not Given Documented by: Atorvastatin Calcium (Atorvastatin 80 Mg Tab) 80 mg PO HS [facility] Last Admin: 08/03/20 19:52 Dose: 80 mg Documented by: Clopidogrel Bisulfate (Clopidogrel 75 Mg Tab) 75 mg PO DAILY [facility] Last Admin: 08/03/20 10:03 Dose: 75 mg Documented by: Ferrous Sulfate (Ferrous Sulfate 325 Mg Tab) 325 mg PO DAILY [facility] Last Admin: 08/03/20 10:04 Dose: 325 mg Documented by: Lisinopril (Lisinopril 20 Mg Tab) 20 mg PO DAILY [facility] Last Admin: 08/03/20 10:03 Dose: 20 mg Documented by: Metoprolol Succinate (Metoprolol Succinate (Er) 100 Mg Tab.Er.24h) 150 mg PO HS [facility] Last Admin: 08/03/20 17:08 Dose: 150 mg Documented by: Miscellaneous Information (Rx Info: Iv Contrast Was Given 1 Each Misc) 1 each MISCELLANE DAILY PRN PRN Reason: Per Protocol Stop: 08/04/20 21:53 Morphine Sulfate (Morphine Sulfate 4 Mg/Ml Syringe) 3 mg IVP Q4H PRN PRN Reason: Moderate to Severe Pain Last Admin: 08/02/20 21:46 Dose: 3 mg Documented by: Multivitamins (Multivitamins, Thera 1 Each Tab) 1 each PO W/LUNCH [facility] Last Admin: 08/03/20 12:48 Dose: 1 each Documented by: Nitroglycerin (Nitroglycerin Sl Tabs 0.4 Mg Tab) 0.4 mg SUBLINGUAL Q5M PRN PRN Reason: Chest Pain Pantoprazole Sodium (Pantoprazole 40 Mg Tablet) 40 mg PO AC-BID [facility] Last Admin: 08/03/20 17:08 Dose: 40 mg Documented by: Physical examination: VITAL SIGNS: 98.1, 76, 18, 120/71, 98% room air GENERAL: Sitting up in bed, comfortable EYES: Pupils equal. Conjunctiva normal. NECK: JVD not raised; masses not palpable. HEART: First and second heart sounds are normal; no edema. LUNGS: Respiratory rate increased; diminished breath sounds. ABDOMEN: Soft, nontender, liver spleen not palpable, no masses palpable. PSYCH: Alert and oriented x3; mood and affect anxious MUSCULAR skeletal: Loss of subcutaneous fat. INVESTIGATIONS, reviewed in the clinical context: Sodium 131 EKG tracing personally reviewed by me-tall peaked T waves. Chest x-ray film personally reviewed by me-hyperinflated, prominent pulmonary artery White count 12.2 hemoglobin 10.1 platelets 452 sodium 122 potassium 4.[address]-negative for. Assessment: -Possible vital pleurisy -Pulmonary embolism ruled out -Hyponatremia. Patient does drink excessive water at home. POA-improving -COPD in a current smoker -Chronic nicotine dependence patient cigarette smoker -Chronic congestive heart failure from systolic dysfunction EF 25-30%, ischemic cardiomyopathy, -Moderate secondary pulmonary hypertension from COPD and possibly CHF -Sigmoid diverticulosis and colonic polyp. Plan: Patient is requested to stay 1 more night. Increase activity. Told him that is possibly viral pleurisy. It slowly improving. Sodiums coming up. Reinforced fluid limitation
[2020-08-04] MEDS: PANTOPRAZOLE 40 MG TABLET PO SCH ×2 (06:31→12:10)
[2020-08-04] MEDS: lisinopriL 20 MG TAB PO SCH (08:39)
[2020-08-04] MEDS: ASCORBIC ACID 500 MG TAB PO SCH (08:39)
[2020-08-04] MEDS: FERROUS SULFATE 325 MG TAB PO SCH (08:39)
[2020-08-04] MEDS: ASPIRIN 81 MG PO SCH (08:39)
[2020-08-04] MEDS: CLOPIDOGREL 75 MG TAB PO SCH (08:39)
[2020-08-04 09:21] LABS: African American GFR (CKD) >90 (>60 ml/min/1.73 sqM); Anion Gap 8 mmol/L; Blood Urea Nitrogen 22 mg/dL (9-20); Calcium 9.1 mg/dL (8.4-10.2); Carbon Dioxide 24 mmol/L (22-30); Chloride 98 mmol/L (98-107); Glucose 91 mg/dL (74-99); Non-African American GFR(CKD) 85 (>60 ml/min/1.73 sqM); Potassium 4.2 mmol/L (3.5-5.1); Sodium 130 mmol/L (137-145)
[2020-08-04 11:36] VITALS: BP 132/64; PULSE 74; TEMP 98.3
[2020-08-04] MEDS: MULTIVITAMINS, THERA 1 EACH TAB PO SCH (12:10)
--- NOTE | 2020-08-04 19:52 | P.DS ---
Providers Date of admission: 08/02/20 13:38 Expected date of discharge: 08/04/20 Attending physician: Angel Hoyt Consults: 08/02/20 13:34 Consult Physician Urgent Consulting Provider: [facility] Consult Reason/Comments: Unstable angina Do you want consulting provider notified?: Yes Primary care physician: Seth Bass [facility] Course: Chief Complaint: Chest pain History of presenting complaint: This is a pleasant [address] Bass. 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 BALDOMERO Shahid. Patient was here in July 2019. Was then admitted with acute non-ST elevation [place]. Cardiac cath showed severe triple-vessel disease. Heavily calcified vessels. Patient was transferred to [facility]. Patient cannot tell be the details but IMPALA was used. Had a stent placed in the left axilla. Also valves were cleaned out. Patient now follows with Dr. BALDOMERO Shahid. Patient today was woken up about 2 AM with a sharp pain in the middle of the chest and the precordial area. decided come to the hospital. [place] weak. Short of breath. No fever no chills. The pain did not radiate. After several hours patient's pain is still present. Troponin was negative. Patient's pain is worse with a deep breath. On IV heparin. Patient does occasionally get short of breath. Acute coronary syndrome was ruled out. PE was ruled out. Patient felt of underlying pleurisy. Likely vital. Patient also had significant hyponatremia. Put on fluid restriction. Sodium come up to 1:30. Today-the much better symptoms greatly improved. Discussed. Discussed about fluid restriction. Questions answered. Discussion and discharge planning more than 35 minutes Consultation: Dr. Beatty from cardiology Physical examination: VITAL SIGNS: 98.3, 74, 16, 132/64, 97% room air GENERAL: Sitting up in bed, comfortable EYES: Pupils equal. Conjunctiva normal. NECK: JVD not raised; masses not palpable. HEART: First and second heart sounds are normal; no edema. LUNGS: Respiratory rate increased; diminished breath sounds. ABDOMEN: Soft, nontender, liver spleen not palpable, no masses palpable. PSYCH: Alert and oriented x3; mood and affect anxious MUSCULAR skeletal: Loss of subcutaneous fat. INVESTIGATIONS, reviewed in the clinical context: Sodium 1:30 EKG tracing personally reviewed by sherri peaked T waves. Chest x-ray film personally reviewed by me-hyperinflated, prominent pulmonary artery White count 12.2 hemoglobin 10.1 platelets 452 sodium 122 potassium 4.[address]-negative for. Assessment: -Possible vital pleurisy, POA -Pulmonary embolism ruled out -Hyponatremia. Likely hypoosmolar Patient does drink excessive water at home. Improved -COPD in a current smoker -Chronic nicotine dependence patient cigarette smoker -Chronic congestive heart failure from systolic dysfunction EF 25-30%, ischemic cardiomyopathy, -Moderate secondary pulmonary hypertension from COPD and possibly CHF -Sigmoid diverticulosis Disposition: Home Patient Condition at Discharge: Stable Plan - Discharge Summary Discharge Rx Participant: No New Discharge Prescriptions: Continue Fluticasone Nasal [place] [Flonase Nasal [place]] 1 - 2 spr EA NOSTRIL BID Aspirin 81 mg PO DAILY Clopidogrel [Plavix] 75 mg PO DAILY Ferrous Sulfate [Iron (65 MG Elemental)] 325 mg PO DAILY Ascorbic Acid [Vitamin C] 500 mg PO DAILY Metoprolol Succinate (ER) [Toprol XL] 150 mg PO HS Pantoprazole Sodium [Protonix] 40 mg PO BID lisinopriL [Prinivil] 20 mg PO DAILY Atorvastatin [Lipitor] 80 mg PO HS Multivit-Min/FA/Lycopen/Lutein [Centrum Silver Tablet] 1 tab PO W/LUNCH Acetaminophen Tab [Tylenol] 325 tab PO TID Discharge Medication List Fluticasone Nasal [place] [Flonase Nasal [place]] 1 - 2 spr EA NOSTRIL BID 07/23/16 [History] Aspirin 81 mg PO DAILY 05/16/19 [History] Clopidogrel [Plavix] 75 mg PO DAILY 06/02/19 [History] Ascorbic Acid [Vitamin C] 500 mg PO DAILY 06/05/20 [History] Atorvastatin [Lipitor] 80 mg PO HS 06/05/20 [History] Ferrous Sulfate [Iron (65 MG Elemental)] 325 mg PO DAILY 06/05/20 [History] Metoprolol Succinate (ER) [Toprol XL] 150 mg PO HS 06/05/20 [History] Multivit-Min/FA/Lycopen/Lutein [Centrum Silver Tablet] 1 tab PO W/LUNCH 06/05/20 [History] Pantoprazole Sodium [Protonix] 40 mg PO BID 06/05/20 [History] lisinopriL [Prinivil] 20 mg PO DAILY 06/05/20 [History] Acetaminophen Tab [Tylenol] 325 tab PO TID 08/02/20 [History] Follow up Appointment(s)/Referral(s): Ronel Shahid MD [STAFF PHYSICIAN] - 2 Weeks (OFFICES ARE CLOSED. PLEASE CALL TO MAKE A FOLLOW UP APPOINTMENT.) Seth Bass MD [Primary Care Provider] - 1-2 days (OFFICES ARE CLOSED. PLEASE CALL TO MAKE A FOLLOW UP APPOINTMENT.) Patient Instructions/Handouts: Hyponatremia (DC) Activity/Diet/Wound Care/Special Instructions: bmp - 3 days fluid restrict 1800 cc/day Discharge Disposition: HOME SELF-CARE
== END 2020-08-04 13:40 | disposition home or self-care (01) | DRG 194 ==
LOC: EC 11:45 → 3SCARD 13:38
PROVIDERS: ADMIT Hospitalist; ATTEND Hospitalist
DX: R09.1 Pleurisy (principal); E87.1 Hypo-osmolality and hyponatremia; I50.22 Chronic systolic (congestive) heart failure; B97.89 Other viral agents as the cause of diseases classified elsewhere; E78.00 Pure hypercholesterolemia, unspecified; E78.5 Hyperlipidemia, unspecified; F17.210 Nicotine dependence, cigarettes, uncomplicated; J44.9 Chronic obstructive pulmonary disease, unspecified; I25.5 Ischemic cardiomyopathy; K63.5 Polyp of colon; K57.30 Diverticulosis of large intestine without perforation or abscess without bleeding; I27.29 Other secondary pulmonary hypertension; I34.0 Nonrheumatic mitral (valve) insufficiency; I11.0 Hypertensive heart disease with heart failure; I73.9 Peripheral vascular disease, unspecified; H54.7 Unspecified visual loss; I25.10 Atherosclerotic heart disease of native coronary artery without angina pectoris; I25.2 Old myocardial infarction; Z79.02 Long term (current) use of antithrombotics/antiplatelets; Z79.82 Long term (current) use of aspirin; Z79.899 Other long term (current) drug therapy; Z95.5 Presence of coronary angioplasty implant and graft; Z98.890 Other specified postprocedural states; Z87.19 Personal history of other diseases of the digestive system; Z82.49 Family history of ischemic heart disease and other diseases of the circulatory system; Z81.8 Family history of other mental and behavioral disorders
CPT/HCPCS: 36415; 71046; 71275; 80048; 80053; 80061; 83735; 84484; 85025; 85610; 85730; 93005; 99291

== ENCOUNTER → 2020-08-21 | Outpatient (CLI) | payer MEDICARE, OTHER ==
[2020-08-21 10:01] LABS: African American GFR (CKD) >90 (>60 ml/min/1.73 sqM); Blood Urea Nitrogen 16 mg/dL (9-20); Non-African American GFR(CKD) 89 (>60 ml/min/1.73 sqM)
--- NOTE | 2020-08-21 11:38 | CT ---
EXAMINATION TYPE: CT abdomen pelvis wo/w con DATE OF EXAM: 08/21/2020 COMPARISON: CT July 21, [address] November 14, 2014 HISTORY: pancreatic lesion CT DLP: 802 mGycm, Automated Exposure Control for Dose Reduction was Utilized. CONTRAST: CT scan of the abdomen and pelvis is performed with oral water and without and with IV Contrast, mandy ent injected with 100 mL of Isovue 370. Pancreatic protocol. FINDINGS: LUNG BASES: Coronary artery stents are redemonstrated.. LIVER/GB: Dependent small gallstones in gallbladder axial image 32 redemonstrated. No new biliary dil atation. PANCREAS: Pancreas overall shows head and uncinate process prominence with calcifications at this lev el. There is persistent irregular 4 mm hypodense focus in the pancreatic head axial image 32 unchange d from most recent study just below the level of the visualized extrahepatic biliary duct. Mild diffu se prominence of the pancreatic duct is unchanged from prior study. A focal 2 mm calcification near d uodenal ampulla coronal image 28 is unchanged in appearance from prior study coronal image 35 presume d in the adjacent glandular tissue. No new suspicious solid or cystic masses. No new surrounding infl ammatory change. SPLEEN: No significant abnormality is seen. ADRENALS: Stable low dense thickening to left adrenal gland consistent with benign lipid rich hyperpl milvia. KIDNEYS: Noncontrast images show no renal calculi bilaterally. Postcontrast images show subcentimeter thin-walled cyst laterally right kidney lower pole level series 11 image 62 with smaller lesion lowe r pole level axial image 67. No hydronephrosis or concerning mass in either kidney BOWEL: Patient has little intra-abdominal fat making evaluation while suboptimal. No suspicious bowel dilatation. PROSTATE/SEMINAL VESICLES: Enlarged prostate consistent with BPH. LYMPH NODES: No greater than 1cm abdominal or pelvic lymph nodes are appreciated. OSSEOUS STRUCTURES: Moderate to borderline severe narrowing both hip joints with some right-sided scl erosis and subchondral cystic change in the femoral head redemonstrated. OTHER: Fairly severe calcified plaque of the aorta extends into branch vessels. IMPRESSION: Overall stable findings. Nonspecific 4 mm hypodense lesion in the pancreatic head. Other findings consistent with chronic pancreatitis noted. No new or enlarging mass. No new surrounding inf lammatory change.
== END | disposition home or self-care (01) ==
LOC: RADCTMAIN 09:17
PROVIDERS: ATTEND Pediatrics
DX: K86.89 Other specified diseases of pancreas (principal)
CPT/HCPCS: 82565; 84520; 74178; 36415; Q9967

== ENCOUNTER → 2021-08-27 | Outpatient (CLI) | payer MEDICARE, OTHER ==
[2021-08-27 11:19] LABS: African American GFR (CKD) >90 (>60 ml/min/1.73 sqM); Blood Urea Nitrogen 16 mg/dL (9-20); Non-African American GFR(CKD) >90 (>60 ml/min/1.73 sqM)
--- NOTE | 2021-08-27 14:04 | CTL ---
EXAMINATION TYPE: CT Low Dose Lung DATE OF EXAM ORDERED: 08/27/2021 HISTORY: Personal history tobacco use, and Z 87.891. Lung cancer screening CT DLP: 48 mGycm Automated exposure control for dose reduction was used. SCREENING VISIT: 1 COMPARISON: CT angiogram of the chest 08/02/2020 TECHNIQUE: Low dose computed tomography scan was performed through the chest at 1 mm thick sections a nd reconstructed images in multiple planes at 1 mm and [address] DIAGNOSTIC QUALITY: Satisfactory FINDINGS: LUNG NODULES: Present, detailed below: 3 mm nodule on axial image 29 series 5 within the left upper lobe LUNGS: COPD: Severity: Mild Fibrosis: Severity: Mild Lymph nodes: None Other findings: Calcified apical pleural thickening is noted, calcified pleural plaques noted posteri jeffery left upper hemithorax. Dependent probable secretions present within the level of the distal trac hea and proximal right mainstem bronchus RIGHT PLEURAL SPACE: Effusion: None Calcification: None Thickening: None Pneumothorax: None LEFT PLEURAL SPACE: Effusion: None Calcification: None Thickening: None Pneumothorax: None HEART: Heart Size: Normal Coronary calcification: Severe Pericardial effusion: None OTHER FINDINGS: Upper abdomen: Unremarkable Bony thorax: Mild spinal curvature, thoracic spondylosis Supraclavicular region: Unremarkable Other: IMPRESSION: Benign CT LUNG RAD AND CT CHEST RECOMMENDATION: Lung-Rad 2 Benign Appearance or Behavior: Continue annual sc reening with LDCT in 12 months. S Modifier (other clinically significant findings): S Calcified pleural plaques can be seen with asbestos related disease. Coronary artery disease is likel y significant
--- NOTE | 2021-08-27 14:49 | CT ---
EXAMINATION TYPE: CT abdomen pelvis w con DATE OF EXAM: 08/27/2021 COMPARISON: CT 08/21/2020 HISTORY: Pancreatic lesion CT DLP: 697 mGycm Automated exposure control for dose reduction was used. TECHNIQUE: Helical acquisition of images from the lung bases through the pelvis have been completed. CONTRAST: Performed with Oral Contrast and with IV Contrast, patient injected with 100 ml mL of Isovue 370. FINDINGS: LUNG BASES: No significant abnormality is appreciated. AORTA: No significant abnormality is appreciated. LIVER/GB: No significant abnormality is appreciated. PANCREAS: No significant interval change is seen. Hypodensity in the pancreatic head is again noted, there is evidence of chronic pancreatitis, pancreatic duct is prominent SPLEEN: No significant abnormality is seen. ADRENALS: No significant abnormality is seen. KIDNEYS: No significant change is seen. REPRODUCTIVE ORGANS: No significant abnormality is seen BOWEL: No significant abnormality is seen. FREE AIR: No Free Air visible. ASCITES: None visible. PELVIC ADENOPATHY: None visualized. RETROPERITONEAL ADENOPATHY: No Retroperitoneal Adenopathy visible. URINARY BLADDER: No significant abnormality is seen. OSSEOUS STRUCTURES: No significant abnormality is seen. IMPRESSION: STABLE EXAM, FINDINGS CONSISTENT WITH CHRONIC PANCREATITIS
== END | disposition home or self-care (01) ==
LOC: RADCTMAIN 10:17
PROVIDERS: ATTEND Pediatrics
DX: Z12.2 Encounter for screening for malignant neoplasm of respiratory organs (principal); Z87.891 Personal history of nicotine dependence; K86.89 Other specified diseases of pancreas
CPT/HCPCS: 82565; 84520; 74177; 36415; 71271; Q9967

== ENCOUNTER 2022-02-26 01:18 | Emergency (ER) | payer MEDICARE, OTHER ==
[2022-02-26 01:37] VITALS: TEMP 98.3
[2022-02-26] MEDS ORDERED: SODIUM CHLORIDE 0.9% 1,000 ML IV STA ×2 (01:59→04:46)
[2022-02-26] MEDS ORDERED: MORPHINE SULFATE 4 MG/ML SYRINGE IV STA (01:59)
[2022-02-26] MEDS ORDERED: ONDANSETRON 4 MG/2 ML VIAL IVP STA (01:59)
--- NOTE | 2022-02-26 02:00 | ED ---
Abdominal Pain HPI <EarnestMoises - Last Filed: 02/26/22 08:20> - General Source: EMS, RN notes reviewed, old records reviewed Mode of arrival: EMS Limitations: no limitations - History of Present Illness MD Complaint: abdominal pain -: hour(s) Location: diffuse, epigastric Radiation: epigastric Migration to: epigastric Severity: moderate Severity scale (1-10): 4 Quality: cramping, aching Consistency: constant Improves With: nothing Worsens With: nothing Context: other (History of similar pain in the past) Associated Symptoms: nausea Treatments Prior to Arrival: other (none) <Cody Aparicio - Last Filed: 02/26/22 21:47> - General Chief Complaint: Abdominal Pain Stated Complaint: Abdominal Pain Time Seen by Provider: 02/26/22 01:31 - History of Present Illness Initial Comments: This is a 71-year-old male to the emergency department for evaluation of abdominal pain. Patient states he may also have a fever until he currently does not. Patient has nausea no vomiting states he's had similar abdominal pain before with pancreatitis. Patient denies drinking history denies problems cholecystectomy for gallbladder disease. No prior abdominal surgeries no travel history or sick contacts no family members with similar complaint. (Cody Aparicio) - Related Data Home Medications Medication Instructions Recorded Confirmed Fluticasone Nasal [place] [Flonase 1 - 2 spr EA NOSTRIL BID 07/23/16 08/02/20 Nasal [place]] Aspirin 81 mg PO DAILY 05/16/19 08/02/20 Clopidogrel [Plavix] 75 mg PO DAILY 06/02/19 08/02/20 Ascorbic Acid [Vitamin C] 500 mg PO DAILY 06/05/20 08/02/20 Atorvastatin [Lipitor] 80 mg PO HS 06/05/20 08/02/20 Ferrous Sulfate [Iron (65 MG 325 mg PO DAILY 06/05/20 08/02/20 Elemental)] Metoprolol Succinate (ER) [Toprol 150 mg PO HS 06/05/20 08/02/20 XL] Multivit-Min/FA/Lycopen/Lutein 1 tab PO W/LUNCH 06/05/20 08/02/20 [Centrum Silver Tablet] Pantoprazole Sodium [Protonix] 40 mg PO BID 06/05/20 08/02/20 lisinopriL [Prinivil] 20 mg PO DAILY 06/05/20 08/02/20 Acetaminophen Tab [Tylenol] 325 tab PO TID 08/02/20 08/02/20 Previous Rx's Medication Instructions Recorded HYDROcodone/APAP 5-325MG [[place] 5] 1 each PO Q6HR PRN 3 Days #12 tab 02/26/22 Mag Hydrox/Al Hydrox/Simeth 30 ml PO BID #300 ml 02/26/22 [Maalox] Ondansetron Odt [Zofran Odt] 4 mg PO Q8HR PRN 3 Days #9 tab 02/26/22 Allergies Allergy/AdvReac Type Severity Reaction Status Date / Time morphine Allergy Hallucinati Verified 02/26/22 02:28 ons Review of Systems ROS Other: All systems not noted in ROS Statement are negative. <Moises Tinoco - Last Filed: 02/26/22 08:20> ROS Other: All systems not noted in ROS Statement are negative. <Cody Aparicio - Last Filed: 02/26/22 21:47> ROS Statement: Those systems with pertinent positive or pertinent negative responses have been documented in the HPI. Past Medical History Past Medical History: Coronary Artery Disease (CAD), Chest Pain / Angina, Heart Failure, COPD, Hyperlipidemia, Hypertension, Myocardial Infarction (PR), Vascular Disorder Additional Past Medical History / Comment(s): Ishemic cardiomyopathy, pulmonary htn, mitral valve regurgitaion, caratid artery disease, PR/anemia, PVD, bilateral leg claudication/pain with walking/resting, past pancreatitis, R eye "lazy and poor vision", diverticular disease, benign colon polyps, sinus problems. Last Myocardial Infarction Date:: 07/19/19 History of Any Multi-Drug Resistant Organisms: None Reported Past Surgical History: Heart Catheterization With Stent, Hernia Repair Additional Past Surgical History / Comment(s): 06/11/20 abdominal aortagram with bilateral illiac artery PTBA/stents, past R SFA stent, several aortagrams/runoffs, 07/25/19 cardiac cath and sent to [facility] for possible intervention, R axillary stent at [facility] but pt states it was placed in his groin/[place], L arm artery stent d/t injury during procedure at [facility], pt states while at [facility] they "cleaned my heart valves out", bilateral inguinal hernia repairs, EGD, colonoscopy/benign polypectomies Past Anesthesia/Blood Transfusion Reactions: Motion Sickness Additional Past Anesthesia/Blood Transfusion Reaction / Comment(s): Pt has received blood in past without reaction. Date of Last Stent Placement:: 07/2019 Past Psychological History: No Psychological Hx Reported Smoking Status: Current every day smoker - Past Family History Mother Family Medical History: Dementia Father Family Medical History: Congestive Heart Failure (CHF), Myocardial Infarction (PR) <Cody Aparicio - Last Filed: 02/26/22 21:47> General Exam Limitations: no limitations General appearance: alert, in no apparent distress Head exam: Present: atraumatic, normocephalic, normal inspection Eye exam: Present: normal appearance, PERRL, EOMI. Absent: scleral icterus, conjunctival injection, periorbital swelling ENT exam: Present: normal exam, mucous membranes moist Neck exam: Present: normal inspection. Absent: tenderness, meningismus, lymphadenopathy Respiratory exam: Present: normal lung sounds bilaterally. Absent: respiratory distress, wheezes, rales, rhonchi, stridor Cardiovascular Exam: Present: regular rate, normal rhythm, normal heart sounds. Absent: systolic murmur, diastolic murmur, rubs, gallop, clicks GI/Abdominal exam: Present: soft, tenderness, guarding, normal bowel sounds. Absent: distended, rebound, rigid Extremities exam: Present: normal inspection, full ROM, normal capillary refill. Absent: tenderness, pedal edema, joint swelling, calf tenderness Back exam: Present: normal inspection Neurological exam: Present: alert, oriented X3, CN II-XII intact Psychiatric exam: Present: normal affect, normal mood Skin exam: Present: warm, dry, intact, normal color. Absent: rash <Cody Aparicio - Last Filed: 02/26/22 21:47> Course <Cody Aparicio - Last Filed: 02/26/22 21:47> Vital Signs 02/26/22 02/26/22 02/26/22 01:34 04:37 06:00 Temperature 98.3 F Pulse Rate 75 69 71 Respiratory 16 16 16 Rate Blood Pressure 149/78 139/83 139/76 O2 Sat by Pulse 98 98 98 Oximetry 02/26/22 07:30 Temperature Pulse Rate 71 Respiratory 18 Rate Blood Pressure 133/73 O2 Sat by Pulse 100 Oximetry - Reevaluation(s) Reevaluation #1: 02/26/22 02:59 Medical record is reviewed (Cody Aparicio) Reevaluation #2: 02/26/22 Patient's pain feels improved here in the emergency department (Cody Aparicio) Reevaluation #3: 02/26/22 Patient informed of results and questions answered (Cody Aparicio) Medical Decision Making - Lab Data Result diagrams: 02/26/22 02:23 02/26/22 02:23 <Moises Tinoco - Last Filed: 02/26/22 08:20> - Lab Data Result diagrams: 02/26/22 02:23 02/26/22 02:23 - Radiology Data Radiology results: report reviewed (CT abdomen and pelvis is positive for mild chronic pancreatitis with possible gallstone in the bile duct, pending ultrasound), image reviewed <Cody Aparicio - Last Filed: 02/26/22 21:47> - Medical Decision Making Patient is a 71-year-old male who signed out to me pending results of ultrasound imaging. Is tenderness with mild pancreatitis, which she does have a history of. He is been seen previously for similar complaints. Labs were unremarkable except for mild elevation in lipase. He is primarily complaining of abdominal pain. Mild nausea. Does have a history of cysts on the pancreas, however does not follow up with any known manager bank. CT imaging on this visit shows chronic pancreatitis, and possible signs of a calculus in the biliary tree. Ultrasound imaging was obtained to evaluate for signs of a gallstone. Ultrasound revealed no gallstones. Bile duct is borderline but normal for patient's age. Especially with normal alk phos and bilirubin normal. The pancreatic head is concerning for possible akinetic Mass, and recommend further follow-up imaging after symptoms have resolved. I did discuss the findings with the patient. Is tolerating oral intake at this time. I will provide him with contact information for manager bank as well as pain medications and OGT Zofran at home. Recommended follow-up with his PCP. Expressed that he needs to obtain follow-up imaging after symptoms have resolved. He was in agreement with this plan. He understands the concern for possible pancreatic head mass. He believes that this is known since that is been diagnosed with previously. Pain is improved. I will provide the patient with a prescription for Zofran ODT, [place]-5 12 tabs, Maalox. I instructed the patient to follow up with their PCP in the next 3 days. [I provided contact information for follow up with] gastroenterology. I explained that the patient should return to the emergency department if they experience any worsening symptoms. Strict return precautions were discussed with the patient. The patient expressed understanding of these instructions. I answered all questions that the patient had. The patient was discharged home in good Condition with their prescriptions and follow up information. (Moises Tinoco) - Lab Data Lab Results 02/26/22 02/26/22 02/26/22 Range/Units 02:23 02:23 02:23 WBC 9.4 (3.8-10.6) k/uL RBC 3.54 L (4.30-5.90) m/uL Hgb 11.4 L (13.0-17.5) gm/dL Hct 34.9 L (39.0-53.0) % MCV 98.3 (80.0-100.0) fL MCH 32.1 (25.0-35.0) pg MCHC 32.7 (31.0-37.0) g/dL RDW 12.4 (11.5-15.5) % Plt Count 438 (150-450) k/uL MPV 6.3 Neutrophils % 75 % Lymphocytes % 13 % Monocytes % 7 % Eosinophils % 2 % Basophils % 1 % Neutrophils # 7.0 (1.3-7.7) k/uL Lymphocytes # 1.2 (1.0-4.8) k/uL Monocytes # 0.7 (0-1.0) k/uL Eosinophils # 0.2 (0-0.7) k/uL Basophils # 0.1 (0-0.2) k/uL PT 9.8 (9.0-12.0) sec INR 0.9 (<1.2) APTT 22.6 (22.0-30.0) sec Sodium (137-145) mmol/L Potassium (3.5-5.1) mmol/L Chloride (98-107) mmol/L Carbon Dioxide (22-30) mmol/L Anion Gap mmol/L BUN (9-20) mg/dL Creatinine (0.66-1.25) mg/dL Est GFR (CKD-EPI)AfAm (>60 ml/min/1.73 sqM) Est GFR (CKD-EPI)NonAf (>60 ml/min/1.73 sqM) Glucose (74-99) mg/dL Calcium (8.4-10.2) mg/dL Total Bilirubin (0.2-1.3) mg/dL AST (17-59) U/L ALT (4-49) U/L Alkaline Phosphatase (38-126) U/L Troponin I (0.000-0.034) ng/mL Total Protein (6.3-8.2) g/dL Albumin (3.5-5.0) g/dL Amylase (30-110) U/L Lipase (23-300) U/L Urine Color Colorless Urine Appearance Clear (Clear) Urine pH 6.5 (5.0-8.0) Ur Specific [place] 1.005 (1.001-1.035) Urine Protein Negative (Negative) Urine Glucose (UA) Negative (Negative) Urine Ketones Negative (Negative) Urine Blood Negative (Negative) Urine Nitrite Negative (Negative) Urine Bilirubin Negative (Negative) Urine Urobilinogen <2.0 (<2.0) mg/dL Ur Leukocyte Esterase Negative (Negative) 02/26/22 02/26/22 Range/Units 02:23 02:23 WBC (3.8-10.6) k/uL RBC (4.30-5.90) m/uL Hgb (13.0-17.5) gm/dL Hct (39.0-53.0) % MCV (80.0-100.0) fL MCH (25.0-35.0) pg MCHC (31.0-37.0) g/dL RDW (11.5-15.5) % Plt Count (150-450) k/uL MPV Neutrophils % % Lymphocytes % % Monocytes % % Eosinophils % % Basophils % % Neutrophils # (1.3-7.7) k/uL Lymphocytes # (1.0-4.8) k/uL Monocytes # (0-1.0) k/uL Eosinophils # (0-0.7) k/uL Basophils # (0-0.2) k/uL PT (9.0-12.0) sec INR (<1.2) APTT (22.0-30.0) sec Sodium 133 L (137-145) mmol/L Potassium 4.3 (3.5-5.1) mmol/L Chloride 99 (98-107) mmol/L Carbon Dioxide 27 (22-30) mmol/L Anion Gap 7 mmol/L BUN 20 (9-20) mg/dL Creatinine 0.86 (0.66-1.25) mg/dL Est GFR (CKD-EPI)AfAm >90 (>60 ml/min/1.73 sqM) Est GFR (CKD-EPI)NonAf 89 (>60 ml/min/1.73 sqM) Glucose 90 (74-99) mg/dL Calcium 9.2 (8.4-10.2) mg/dL Total Bilirubin 0.4 (0.2-1.3) mg/dL AST 28 (17-59) U/L ALT 18 (4-49) U/L Alkaline Phosphatase 67 (38-126) U/L Troponin I <0.012 (0.000-0.034) ng/mL Total Protein 6.7 (6.3-8.2) g/dL Albumin 4.1 (3.5-5.0) g/dL Amylase 83 (30-110) U/L Lipase 465 H (23-300) U/L Urine Color Urine Appearance (Clear) Urine pH (5.0-8.0) Ur Specific [place] (1.001-1.035) Urine Protein (Negative) Urine Glucose (UA) (Negative) Urine Ketones (Negative) Urine Blood (Negative) Urine Nitrite (Negative) Urine Bilirubin (Negative) Urine Urobilinogen (<2.0) mg/dL Ur Leukocyte Esterase (Negative) Disposition Is patient prescribed a controlled substance at d/c from ED?: Yes When asked, does pt state using other controlled substances?: No If prescribed controlled substance>3 days was MAPS reviewed?: Prescribed <3 Days If opioid is for acute pain is fill amount 7 days or less?: Yes If Rx opioid, was Start Talking consent form obtained?: Yes Time of Disposition: 08:00 <Moises Tinoco - Last Filed: 02/26/22 08:20> Is patient prescribed a controlled substance at d/c from ED?: No <Cody Aparicio - Last Filed: 02/26/22 21:47> Clinical Impression: Pancreatitis Disposition: HOME SELF-CARE Condition: Good Instructions (If sedation given, give patient instructions): Pancreatitis (ED) Additional Instructions: Follow up with PCP/[employer]. You have findings concerning for a mass vs. cyst on pancreas. You have a known history of a cyst and should receive follow up imaging when these symptoms have subsided to better evaluate. Prescriptions: Mag Hydrox/Al Hydrox/Simeth [Maalox] 30 ml PO BID #300 ml HYDROcodone/APAP 5-325MG [[place] 5] 1 each PO Q6HR PRN 3 Days #12 tab PRN Reason: Pain Ondansetron Odt [Zofran Odt] 4 mg PO Q8HR PRN 3 Days #9 tab PRN Reason: Nausea Referrals: Seth Bass MD [Primary Care Provider] - 1-2 days Ce Gilliam MD [STAFF PHYSICIAN] - 1-2 days
[2022-02-26 02:55] LABS: Appearance,Urine Clear (Clear); Basophils # (A) 0.1 k/uL (0-0.2); Basophils % (A) 1 %; Bilirubin,Urine Negative (Negative); Blood,Urine Negative (Negative); Color,Urine Colorless; Eosinophils # (A) 0.2 k/uL (0-0.7); Eosinophils % (A) 2 %; Glucose,Urine (UA) Negative (Negative); HCT 34.9 % (39.0-53.0); HGB 11.4 gm/dL (13.0-17.5); Ketones,Urine Negative (Negative); Leukocyte Esterase,Urine Negative (Negative); Lymphocytes # (A) 1.2 k/uL (1.0-4.8); Lymphocytes % (A) 13 %; MCH 32.1 pg (25.0-35.0); MCHC 32.7 g/dL (31.0-37.0); MCV 98.3 fL (80.0-100.0); Mean Platelet Volume 6.3; Monocytes # (A) 0.7 k/uL (0-1.0); Monocytes % (A) 7 %; Neutrophils % (A) 75 %; Nitrite,Urine Negative (Negative); PH, Urine 6.5 (5.0-8.0); Platelet Count 438 k/uL (150-450); Protein,Urine Negative (Negative); RBC 3.54 m/uL (4.30-5.90); RDW 12.4 % (11.5-15.5); Specific Gravity,Urine 1.005 (1.001-1.035); Urobilinogen,Urine <2.0 mg/dL (<2.0); WBC 9.4 k/uL (3.8-10.6)
[2022-02-26] MEDS ORDERED: HYDROmorphone 1 MG/ML 1 ML SYRINGE IVP STA (02:59)
[2022-02-26 03:15] LABS: INR 0.9 (<1.2); Partial Thromboplastin Time 22.6 sec (22.0-30.0); Prothrombin Time 9.8 sec (9.0-12.0)
[2022-02-26 03:28] LABS: ALT 18 U/L (4-49); AST 28 U/L (17-59); African American GFR (CKD) >90 (>60 ml/min/1.73 sqM); Albumin 4.1 g/dL (3.5-5.0); Alkaline Phosphatase 67 U/L (38-126); Amylase 83 U/L (30-110); Anion Gap 7 mmol/L; Blood Urea Nitrogen 20 mg/dL (9-20); Calcium 9.2 mg/dL (8.4-10.2); Carbon Dioxide 27 mmol/L (22-30); Chloride 99 mmol/L (98-107); Glucose 90 mg/dL (74-99); Lipase 465 U/L (23-300); Non-African American GFR(CKD) 89 (>60 ml/min/1.73 sqM); Potassium 4.3 mmol/L (3.5-5.1); Sodium 133 mmol/L (137-145); Total Bilirubin 0.4 mg/dL (0.2-1.3); Total Protein 6.7 g/dL (6.3-8.2)
--- NOTE | 2022-02-26 04:52 | CT ---
EXAMINATION TYPE: CT abdomen pelvis w con DATE OF EXAM: 02/26/2022 COMPARISON: 08/27/2021 HISTORY: pain CT DLP: 449.7 mGycm Automated exposure control for dose reduction was used. CONTRAST: Performed with IV Contrast, patient injected with 100 mL of Isovue 300. There is minimal subsegmental atelectasis at the lung bases. Heart size is normal. No pericardial eff usion. Spleen is intact. Liver is intact. There is possible 3 mm calculus in the distal common bile d uct. There is slight fullness of the biliary tree compared to the old exam. Gallbladder appears nabila l. There are pancreatic calcifications suggestive of chronic pancreatitis. There is no adrenal mass. Kidneys show satisfactory contrast opacification. There is no hydronephrosi s. Abdominal aorta is atheromatous. Bladder distends smoothly. There is no abdominal hernia. No free fluid in the pelvis. There is no mesenteric edema. No ascites or free air. No bowel obstruction. The lumbar vertebrae have normal alignment. There is disc space narrowing at L5-S1 with sclerosis and spurring. The bony pelvi s is intact. Hip joints are intact. IMPRESSION: Atherosclerotic vascular disease. Changes of chronic pancreatitis. Minimal scarring or atelectasis at the left lung base is increased compared to the old exam. There is some fullness of the biliary tree compared to the old exam and possible calculus in the dist al common bile duct seen on image 35.
[2022-02-26 06:01] VITALS: PULSE 71
[2022-02-26 07:32] VITALS: BP 133/73; RESP 18
--- NOTE | 2022-02-26 07:50 | US ---
EXAMINATION TYPE: US gallbladder DATE OF EXAM: 02/26/2022 COMPARISON: Correlation CT same date CLINICAL HISTORY: 71-year-old male pain, pancreatitis. Generalized pain. CT showed possible stone in CBD. TECHNIQUE: Multiple sonographic images of the right upper quadrant are obtained. EXAM MEASUREMENTS: Liver Length: 13.3 cm Gallbladder Wall: 0.2 cm CBD: 0.6 cm Right Kidney: 10.2 x 4.6 x 4.2 cm Pancreas: Main pancreatic duct upper limits of normal in caliber at 2.8 mm. Head obscured by bowel gas and could not be adequately assessed. Liver: Relatively homogeneous appearance. No focal lesion. Gallbladder: No hydropic change. No wall thickening, pericholecystic fluid, or shadowing calculi. Evidence for sonographic Dumont's sign: neg CBD: Borderline dilated may be chronic for the patient's given age. Multiple images of CBD taken. N o stone visualized at portions seen. The segment at the ampulla and pancreatic head are obscured. Right Kidney: No hydronephrosis or masses seen IMPRESSION: 1. No gallstones. The visualized bile duct is borderline dilated. This may be chronic for the patient 's age. Correlate with alkaline phosphatase and bilirubin levels to exclude early biliary obstruction given the possible distal duct calculus seen on CT. 2. The pancreatic head is obscured by bowel gas shadowing and not assessed by ultrasound. Given CT fi ndings, consider paraduodenal/groove pancreatitis. Follow up after successful conservative treatment to exclude underlying pancreatic head mass.
[2022-02-26] MEDS ORDERED: HYDROcodone/APAP 5-325MG 1 EACH TAB PO STA (08:06)
== END 2022-02-26 08:20 | disposition home or self-care (01) ==
LOC: EC 01:18
DX: K85.90 Acute pancreatitis without necrosis or infection, unspecified (principal); I11.0 Hypertensive heart disease with heart failure; I50.9 Heart failure, unspecified; I25.2 Old myocardial infarction; I25.10 Atherosclerotic heart disease of native coronary artery without angina pectoris; E78.5 Hyperlipidemia, unspecified; J44.9 Chronic obstructive pulmonary disease, unspecified; F17.200 Nicotine dependence, unspecified, uncomplicated; Z79.02 Long term (current) use of antithrombotics/antiplatelets; Z79.82 Long term (current) use of aspirin; Z95.5 Presence of coronary angioplasty implant and graft; Z79.899 Other long term (current) drug therapy
CPT/HCPCS: 36415; 80053; 82150; 83690; 84484; 85025; 85610; 85730; 81003; 76705; 74177; 99284; 96374 ×2; 96361; J2405; J1170; Q9967